=== PATIENT | female | born 1990 | race American Indian/Alaskan Native ===

== ENCOUNTER 2016-06-07 22:21 | Emergency (ER) | payer MEDICAID ==
[2016-06-07 23:31] LABS: Basophils % (Auto) 0.5 % (0.0-1.8); Eosinophils % (Auto) 1.7 % (0.0-4.3); Hematocrit 35.3 % (30.3-42.9); Hemoglobin 11.4 gm/dl (10.1-14.3); Mean Corpuscular HGB Conc 32 % (30-34); Mean Corpuscular Volume 78 fl (79-97); Platelet Count 272 K/mm3 (140-440); Red Blood Count 4.52 M/mm3 (3.65-5.03); Red Cell Distribution Width 16.2 % (13.2-15.2); White Blood Count 8.1 K/mm3 (4.5-11.0)
[2016-06-07 23:43] LABS: Mean Corpuscular Hemoglobin 25 pg (28-32)
[2016-06-07 23:48] LABS: Blood Urea Nitrogen 14 mg/dL (7-17); Calcium 8.5 mg/dL (8.4-10.2); Carbon Dioxide 25 mmol/L (22-30); Chloride 99.8 mmol/L (98-107); Glucose 85 mg/dL (65-100); Potassium 4.2 mmol/L (3.6-5.0); Sodium 136 mmol/L (137-145)
[2016-06-07 23:51] LABS: Anion Gap 15 mmol/L
[2016-06-08 04:17] LABS: Urine Drugs of Abuse Note Disclamer
[2016-06-08 04:23] LABS: Bilirubin,Urine NEG (Negative); Blood,Urine NEG (Negative); Ketones,Urine NEG (Negative); Leukocyte Esterase,Urine NEG (Negative); Nitrite,Urine NEG (Negative); Protein,Urine <15 mg/dL mg/dL (Negative); Urobilinogen,Urine < 2.0 mg/dL (<2.0); WBC,Urine < 1.0 /HPF (0.0-6.0)
--- NOTE | 2016-06-08 07:58 | Emergency Department Report ---
ED Psych HPI - General Chief Complaint: Psych Stated Complaint: ZAKI EVAL Time Seen by Provider: 06/08/16 07:56 Source: patient, EMS Mode of arrival: Ambulatory - History of Present Illness Initial Comments: The patient was transported by [facility] for request to renew her mental health prescriptions. The patient has a history of autism and schizophrenia. She is that of a poor historian. From what I can glean she recently got suspended from her day program. She resides with her parents. She is requesting that I restart her medicines which as far as I can now determine include Benadryl Haldol and Zyprexa. She is no longer taking Trileptal she states. She is not actively hallucinating. She is not violent. She is not suicidal. Complaint: other -: year(s) Associated Psychiatric Symptoms: none History of same: No Quality: intermittent Improves With: none Worsens With: none Associated Symptoms: denies other symptoms Treatments Prior to Arrival: none - Related Data Home Medications Medication Instructions Recorded Confirmed Last Taken Haloperidol [Haldol] 10 mg PO QDAY 05/10/16 05/10/16 Unknown OLANzapine TAB [Zyprexa Tab] 5 mg PO DAILY 05/10/16 05/10/16 Unknown Previous Rx's Medication Instructions Recorded Last Taken Type diphenhydrAMINE [Benadryl CAP] 50 mg PO QHS #60 capsule 08/23/15 Unknown Rx OXcarbazepine [Trileptal] 600 mg PO TID #30 tablet 12/07/15 Unknown Rx Haloperidol [Haldol] 5 mg PO BID #60 tablet 06/08/16 Unknown Rx OLANzapine [ZyPREXA] 5 mg PO QHS #30 tablet 06/08/16 Unknown Rx diphenhydrAMINE [Benadryl CAP] 50 mg PO BID #60 capsule 06/08/16 Unknown Rx Allergies Allergy/AdvReac Type Severity Reaction Status Date / Time No Known Allergies Allergy Verified 10/19/15 17:47 ED Review of Systems ROS: Stated complaint: MH EVAL Other details as noted in HPI Constitutional: denies: chills, fever Eyes: denies: eye pain, eye discharge, vision change ENT: denies: ear pain, throat pain Respiratory: denies: cough, shortness of breath, wheezing Cardiovascular: denies: chest pain, palpitations Endocrine: no symptoms reported Gastrointestinal: denies: abdominal pain, nausea, diarrhea Genitourinary: denies: urgency, dysuria, discharge Musculoskeletal: denies: back pain, joint swelling, arthralgia Skin: denies: rash, lesions Neurological: denies: headache, weakness, paresthesias Psychiatric: other. denies: anxiety, depression, auditory hallucinations, visual hallucinations, homicidal thoughts, suicidal thoughts Hematological/Lymphatic: denies: easy bleeding, easy bruising ED Past Medical Hx - Past Medical History Hx Psychiatric Treatment: Yes (schiophrenia, Mood disorder, Bipolar, Violent, SI ,) Additional medical history: schizophrenia,autism, obesity - Surgical History Past Surgical History?: No - Social History Smoking Status: Never Smoker Substance Use Type: None - Medications Home Medications: Home Medications Medication Instructions Recorded Confirmed Last Taken Type diphenhydrAMINE [Benadryl CAP] 50 mg PO QHS #60 capsule 08/23/15 05/10/16 Unknown Rx OXcarbazepine [Trileptal] 600 mg PO TID #30 tablet 12/07/15 05/10/16 Unknown Rx Haloperidol [Haldol] 10 mg PO QDAY 05/10/16 05/10/16 Unknown History OLANzapine TAB [Zyprexa Tab] 5 mg PO DAILY 05/10/16 05/10/16 Unknown History Haloperidol [Haldol] 5 mg PO BID #60 tablet 06/08/16 Unknown Rx OLANzapine [ZyPREXA] 5 mg PO QHS #30 tablet 06/08/16 Unknown Rx diphenhydrAMINE [Benadryl CAP] 50 mg PO BID #60 capsule 06/08/16 Unknown Rx ED Physical Exam - General Limitations: No Limitations General appearance: alert, in no apparent distress - Head Head exam: Present: atraumatic, normocephalic - Eye Eye exam: Present: normal appearance, PERRL, EOMI. Absent: scleral icterus - ENT ENT exam: Present: mucous membranes moist - Neck Neck exam: Present: normal inspection - Respiratory Respiratory exam: Present: normal lung sounds bilaterally. Absent: respiratory distress - Cardiovascular Cardiovascular Exam: Present: regular rate, normal rhythm. Absent: systolic murmur, diastolic murmur, rubs, gallop - GI/Abdominal GI/Abdominal exam: Present: soft, normal bowel sounds. Absent: distended, tenderness, guarding, rebound, rigid - Extremities Exam Extremities exam: Present: normal inspection - Back Exam Back exam: Present: normal inspection - Neurological Exam Neurological exam: Present: alert, oriented X3, CN II-XII intact. Absent: motor sensory deficit - Psychiatric Psychiatric exam: Present: normal affect, normal mood - Skin Skin exam: Present: warm, dry, intact, normal color. Absent: rash ED Course Vital Signs 06/07/16 06/08/16 22:30 06:29 Temperature 98.1 F 98.4 F Pulse Rate 94 H 88 Respiratory 18 18 Rate Blood Pressure 125/81 Blood Pressure 120/58 [Left] O2 Sat by Pulse 98 98 Oximetry - Reevaluation(s) Reevaluation #1: I spoke with the mental health counselor. We did not find 1013 criteria. The parents were notified. They stated that they would accept the patient back. They do not report any red flag type behavior nor suicidal ideation. 06/08/16 09:30 ED Medical Decision Making - Lab Data Result diagrams: 06/07/16 23:21 06/07/16 23:21 Laboratory Results - last 24 hr 06/07/16 06/07/16 06/07/16 23:21 23:21 23:21 WBC RBC Hgb Hct MCV MCH MCHC RDW Plt Count Lymph % (Auto) [place] % (Auto) Eos % (Auto) Baso % (Auto) Lymph # [place] # Eos # Baso # Seg Neutrophils % Seg Neutrophils # Sodium 136 L Potassium 4.2 Chloride 99.8 Carbon Dioxide 25 Anion Gap 15 BUN 14 Creatinine 1.0 Estimated GFR > 60 BUN/Creatinine Ratio 14.00 Glucose 85 Calcium 8.5 HCG, Qual Negative Urine Color Urine Turbidity Urine pH Ur Specific Richards Urine Protein Urine Glucose (UA) Urine Ketones Urine Blood Urine Nitrite Urine Bilirubin Urine Urobilinogen Ur Leukocyte Esterase Urine WBC (Auto) Urine RBC (Auto) U Epithel Cells (Auto) Urine Opiates Screen Urine Methadone Screen Ur Barbiturates Screen Ur Phencyclidine Scrn Ur Amphetamines Screen U Benzodiazepines Scrn Urine Cocaine Screen U Marijuana (THC) Screen Drugs of Abuse Note Plasma/Serum Alcohol < 0.01 06/07/16 06/07/16 06/07/16 23:21 Unknown Unknown WBC 8.1 RBC 4.52 Hgb 11.4 Hct 35.3 MCV 78 L MCH 25 L MCHC 32 RDW 16.2 H Plt Count 272 Lymph % (Auto) 34.5 [place] % (Auto) 7.0 Eos % (Auto) 1.7 Baso % (Auto) 0.5 Lymph # 2.8 [place] # 0.6 Eos # 0.1 Baso # 0.0 Seg Neutrophils % 56.3 Seg Neutrophils # 4.5 Sodium Potassium Chloride Carbon Dioxide Anion Gap BUN Creatinine Estimated GFR BUN/Creatinine Ratio Glucose Calcium HCG, Qual Urine Color Straw Urine Turbidity Clear Urine pH 5.0 Ur Specific Richards 1.010 Urine Protein <15 mg/dl Urine Glucose (UA) Neg Urine Ketones Neg Urine Blood Neg Urine Nitrite Neg Urine Bilirubin Neg Urine Urobilinogen < 2.0 Ur Leukocyte Esterase Neg Urine WBC (Auto) < 1.0 Urine RBC (Auto) 1.0 U Epithel Cells (Auto) 1.0 Urine Opiates Screen Presumptive negative Urine Methadone Screen Presumptive negative Ur Barbiturates Screen Presumptive negative Ur Phencyclidine Scrn Presumptive negative Ur Amphetamines Screen Presumptive negative U Benzodiazepines Scrn Presumptive negative Urine Cocaine Screen Presumptive negative U Marijuana (THC) Screen Presumptive negative Drugs of Abuse Note Disclamer Plasma/Serum Alcohol Critical care attestation.: If time is entered above; I have spent that time in minutes in the direct care of this critically ill patient, excluding procedure time. ED Disposition Clinical Impression: Autism Schizophrenia Qualifiers: Schizophrenia type: other Qualified Code(s): F20.89 - Other schizophrenia; F20.8 - Other schizophrenia Disposition: DISCHARGED TO HOME OR SELFCARE Is pt being admited?: No Does the pt Need Aspirin: No Condition: Stable Instructions: Schizophrenia (ED) Additional Instructions: Follow-up with usual psychiatrist and or [facility] services. Prescriptions: Haloperidol [Haldol] 5 mg PO BID #60 tablet OLANzapine [ZyPREXA] 5 mg PO QHS #30 tablet diphenhydrAMINE [Benadryl CAP] 50 mg PO BID #60 capsule Referrals: PRIMARY CARE, [Primary Care Provider] - [facility] Time of Disposition: 09:31
[2016-06-08] MEDS ORDERED: MILK OF MAGNESIA PO PRN (09:19)
[2016-06-08] MEDS ORDERED: ALUM-MAG HYDROX-SIMETH 200-200-20MG/5ML PO PRN (09:19)
[2016-06-08] MEDS ORDERED: TYLENOL PO PRN (09:19)
[2016-06-08] MEDS ORDERED: HALDOL PO SCH (10:00)
[2016-06-08] MEDS ORDERED: BENADRYL PO SCH (10:00)
[2016-06-08 10:34] VITALS: BP 127/75
== END 2016-06-08 10:25 | disposition home or self-care (01) ==
LOC: EEVIPCON 06-08 01:41 → ED 06-08 01:41
DX: F84.0 Autistic disorder (principal); F20.89 Other schizophrenia; F31.9 Bipolar disorder, unspecified; F20.9 Schizophrenia, unspecified
CPT/HCPCS: 36415; 80048; 80307; 81001; 84703; 85025; 99284; G0480; 80320

== ENCOUNTER 2016-07-28 23:58 | Emergency (ER) | payer MEDICAID ==
--- NOTE | 2016-07-29 00:35 | Emergency Department Report ---
HPI - General Time Seen by Provider: 07/29/16 00:32 - HPI HPI: This is a 26-year-old -L[place] female who presents to the emergency department by EMS from home with complaint of auditory hallucinations. The [place] she needs to go to [facility]. The patient has a history of autism and schizophrenia. She is on multiple psychiatric medications and says that she takes them compliantly. She denies any visual hallucinations, suicidal ideations or homicidal ideations. She currently lives with her mother and the patient says that there is no conflict between them and she feels safe at home. She denies any other past medical history. ED Past Medical Hx - Past Medical History Previous Medical History?: Yes Hx Psychiatric Treatment: Yes (schiophrenia, Mood disorder, Bipolar, Violent, SI ,) Additional medical history: schizophrenia,autism, obesity - Surgical History Past Surgical History?: No - Social History Smoking Status: Unknown if ever smoked Substance Use Type: None - Medications Home Medications: Home Medications Medication Instructions Recorded Confirmed Last Taken Type Haloperidol [Haloperidol] 10 mg PO BID 07/29/16 07/29/16 Unknown History Ibuprofen [Motrin 800 MG tab] 800 mg PO Q6HR PRN 07/29/16 07/29/16 Unknown History LORazepam [LORazepam] 1 mg PO BID 07/29/16 07/29/16 Unknown History cloNIDine-TTS PATCH [Catapres-Tts 1 patch TD Q7D 07/29/16 07/29/16 Unknown History Patch] diphenhydrAMINE [Benadryl CAP] 50 mg PO QHS PRN 07/29/16 07/29/16 Unknown History risperiDONE [RisperDAL] 1 mg PO BID 07/29/16 07/29/16 Unknown History ED Review of Systems ROS: Stated complaint: MH EVAL/HEARING VOICES Other details as noted in HPI Comment: Unobtainable due to pts medical conditions Constitutional: denies: chills, fever Eyes: denies: eye pain, eye discharge, vision change ENT: denies: ear pain, throat pain Respiratory: denies: cough, shortness of breath, wheezing Cardiovascular: denies: chest pain, palpitations Gastrointestinal: denies: abdominal pain, nausea, diarrhea Genitourinary: denies: urgency, dysuria, discharge Musculoskeletal: denies: back pain, joint swelling, arthralgia Skin: denies: rash, lesions Neurological: denies: headache, weakness, paresthesias Psychiatric: auditory hallucinations. denies: visual hallucinations, homicidal thoughts, suicidal thoughts Physical Exam - Physical Exam Vital Signs: Vital Signs 07/29/16 00:30 Temperature 99.0 F Pulse Rate 98 H Respiratory 18 Rate Blood Pressure 123/75 [Left] O2 Sat by Pulse 97 Oximetry Physical Exam: GENERAL: The patient is well-developed well-nourished. HEENT: Normocephalic. Atraumatic. Extraocular motions are intact. Patient has moist mucous membranes. Pupils equal reactive to light bilaterally. NECK: Supple. Trachea is midline. CHEST/LUNGS: Clear to auscultation. There is no respiratory distress noted. HEART/CARDIOVASCULAR: Regular. There is no tachycardia. There is no gallop rub or murmur. ABDOMEN: Abdomen is soft, nontender. Patient has normal bowel sounds. There is no abdominal distention. SKIN: There is no rash. There is no edema. There is no diaphoresis. NEURO: The patient is awake, alert. The patient is cooperative. The patient has no focal neurologic deficits. The patient has normal speech. MUSCULOSKELETAL: There is no tenderness or deformity. There is no limitation range of motion. There is no evidence of acute injury. ED Course Vital Signs 07/29/16 00:30 Temperature 99.0 F Pulse Rate 98 H Respiratory 18 Rate Blood Pressure 123/75 [Left] O2 Sat by Pulse 97 Oximetry ED Medical Decision Making - Lab Data Result diagrams: 07/29/16 00:36 07/29/16 00:36 - Medical Decision Making This is a 26-year-old Afro-Lithuanian female with history of schizophrenia and autism who presents to the ER via EMS saying that [place] at [place] were talking to her and telling her to come to [facility]. This is basically the answer that she gives to most questions about her current condition or reasons for coming to the emergency department. However the patient is able to answer questions about herself such as medications that she is on, arriving by ambulance, whom she lives with, etc. The patient denies any suicidal or homicidal ideations or any visual hallucinations. The patient's labs have been mostly unremarkable. There is no signs of infection, electrolyte abnormalities , renal insufficiency, glucose abnormalities. Patient is negative for blood alcohol. She is not . Since the patient does not appear to have any homicidal or suicidal thoughts, and since she appears to be at her baseline mental status with her autism and history of schizophrenia, I do not feel that the patient is a 1013 candidate at this time. She was seen by the crisis therapist, who has a separate note indicating the same conclusions. However due to the patient's autism, I do not believe that she is able to be discharged at this time on her own accord. We attempted to get in touch with her mother, whom she lives with, but were unsuccessful at this time. A voice mail was left for her. The patient will be kept in the emergency department until we are able to make sure of a safe discharge. Critical Care Time: No Critical care attestation.: If time is entered above; I have spent that time in minutes in the direct care of this critically ill patient, excluding procedure time. ED Disposition Clinical Impression: Autism Schizophrenia Qualifiers: Schizophrenia type: unspecified Qualified Code(s): F20.9 - Schizophrenia, unspecified Disposition: DISCHARGED TO HOME OR SELFCARE Is pt being admited?: No Condition: Stable Instructions: Schizophrenia (ED), Autism (ED) Additional Instructions: Please follow-up with your primary care physician and your psychiatrist in the next few days. Return to the emergency department with any worsening of your symptoms or any acute distress. Referrals: PRIMARY CAREMD [Primary Care Provider] - 3-5 Days Time of Disposition: 01:57
[2016-07-29 00:44] LABS: Basophils % (Auto) 0.6 % (0.0-1.8); Eosinophils % (Auto) 1.8 % (0.0-4.3); Hematocrit 35.2 % (30.3-42.9); Hemoglobin 11.4 gm/dl (10.1-14.3); Mean Corpuscular HGB Conc 32 % (30-34); Mean Corpuscular Volume 77 fl (79-97); Platelet Count 261 K/mm3 (140-440); Red Blood Count 4.56 M/mm3 (3.65-5.03); Red Cell Distribution Width 15.6 % (13.2-15.2); White Blood Count 8.6 K/mm3 (4.5-11.0)
[2016-07-29 00:52] LABS: Mean Corpuscular Hemoglobin 25 pg (28-32)
[2016-07-29 00:55] LABS: Bilirubin,Urine NEG (Negative); Blood,Urine NEG (Negative); Ketones,Urine NEG (Negative); Leukocyte Esterase,Urine NEG (Negative); Nitrite,Urine NEG (Negative); Protein,Urine <15 mg/dL mg/dL (Negative); Urobilinogen,Urine < 2.0 mg/dL (<2.0); WBC,Urine < 1.0 /HPF (0.0-6.0)
[2016-07-29 00:59] LABS: Anion Gap 14 mmol/L; BUN/Creatinine Ratio 13.75; Blood Urea Nitrogen 11 mg/dL (7-17); Calcium 8.8 mg/dL (8.4-10.2); Carbon Dioxide 27 mmol/L (22-30); Chloride 99.3 mmol/L (98-107); Glucose 91 mg/dL (65-100); Potassium 4.4 mmol/L (3.6-5.0); Sodium 136 mmol/L (137-145)
[2016-07-29 01:17] LABS: Urine Drugs of Abuse Note Disclamer
[2016-07-29 10:00] VITALS: BP 122/86
== END 2016-07-29 10:02 | disposition home or self-care (01) ==
LOC: ED 23:58
DX: F84.0 Autistic disorder (principal); F20.9 Schizophrenia, unspecified; F31.9 Bipolar disorder, unspecified; F39 Unspecified mood [affective] disorder
CPT/HCPCS: 36415; 80048; 80307; 81001; 84703; 85025; 99284; G0480; 80320

== ENCOUNTER 2016-08-03 14:30 | Emergency (ER) | payer MEDICAID ==
[2016-08-03 14:45] VITALS: BP 124/86
[2016-08-03 15:20] LABS: Basophils % (Auto) 0.4 % (0.0-1.8); Eosinophils % (Auto) 1.4 % (0.0-4.3); Hematocrit 34.5 % (30.3-42.9); Hemoglobin 11.2 gm/dl (10.1-14.3); Mean Corpuscular HGB Conc 33 % (30-34); Mean Corpuscular Volume 77 fl (79-97); Platelet Count 235 K/mm3 (140-440); Red Blood Count 4.49 M/mm3 (3.65-5.03); Red Cell Distribution Width 15.3 % (13.2-15.2); White Blood Count 5.1 K/mm3 (4.5-11.0)
[2016-08-03 15:28] LABS: Anion Gap 16 mmol/L; BUN/Creatinine Ratio 14.28; Blood Urea Nitrogen 10 mg/dL (7-17); Calcium 8.9 mg/dL (8.4-10.2); Carbon Dioxide 24 mmol/L (22-30); Chloride 102.5 mmol/L (98-107); Glucose 89 mg/dL (65-100); Potassium 4.1 mmol/L (3.6-5.0); Sodium 138 mmol/L (137-145)
[2016-08-03 15:33] LABS: Urine Drugs of Abuse Note Disclamer
[2016-08-03 15:38] LABS: Mean Corpuscular Hemoglobin 25 pg (28-32)
[2016-08-03 16:09] LABS: Bilirubin,Urine NEG (Negative); Blood,Urine NEG (Negative); Ketones,Urine NEG (Negative); Leukocyte Esterase,Urine NEG (Negative); Nitrite,Urine NEG (Negative); Protein,Urine <15 mg/dL mg/dL (Negative); RBC,Urine < 1.0 /HPF (0.0-6.0); Urobilinogen,Urine < 2.0 mg/dL (<2.0)
--- NOTE | 2016-08-03 16:29 | Emergency Department Report ---
HPI - General Chief Complaint: Psych Time Seen by Provider: 08/03/16 16:23 - HPI HPI: Chief complaint: Hearing voices HPI: Patient is a 26-year-old female with multiple visits to this emergency department as history of schizophrenia, mood disorder, bipolar disorder, autism he states she's here for having a "outburst. "Patient denies hitting anyone or being suicidal or homicidal. Patient states she was hearing voices. Patient states she has been taking her medications. Patient has poor insight. Mode of arrival: [private car] Source: [Patient] and nursing notes Began: This morning Duration: Currently has resolved Context: Patient lives with her family and periodically has altercations with her mother and comes to the hospital. Quality: Patient is pain-free Severity: Improved with: Nothing Worsened with: Nothing Associated signs and symptoms: No pain, shortness of breath, nausea vomiting or diarrhea. ED Past Medical Hx - Past Medical History Previous Medical History?: Yes Hx Psychiatric Treatment: Yes (schiophrenia, Mood disorder, Bipolar, Violent, SI ,) Additional medical history: schizophrenia,autism, obesity - Surgical History Past Surgical History?: No - Social History Smoking Status: Never Smoker Substance Use Type: Prescribed - Medications Home Medications: Home Medications Medication Instructions Recorded Confirmed Last Taken Type Haloperidol [Haloperidol] 10 mg PO BID 07/29/16 07/29/16 Unknown History Ibuprofen [Motrin 800 MG tab] 800 mg PO Q6HR PRN 07/29/16 07/29/16 Unknown History LORazepam [LORazepam] 1 mg PO BID 07/29/16 07/29/16 Unknown History cloNIDine-TTS PATCH [Catapres-Tts 1 patch TD Q7D 07/29/16 07/29/16 Unknown History Patch] diphenhydrAMINE [Benadryl CAP] 50 mg PO QHS PRN 07/29/16 07/29/16 Unknown History risperiDONE [RisperDAL] 1 mg PO BID 07/29/16 07/29/16 Unknown History ED Review of Systems ROS: Stated complaint: HEARING VOICES Other details as noted in HPI ROS Constitutional: No fever ENT: No uri symptoms Cardiovascular: No chest pain Respiratory: No sob or cough GI: No nausea vomiting or diarrhea : No dysuria frequency or urgency, Skin: No rash Neuro: No focal weakness or numbness Psych: See HPI Jordan/lymph: No edema Physical Exam - Physical Exam Vital Signs: Vital Signs 08/03/16 14:42 Temperature 97.8 F Pulse Rate 79 Respiratory 18 Rate Blood Pressure 124/86 O2 Sat by Pulse 99 Oximetry Physical Exam: GENERAL: The patient is an obese -Honduran female standing in the room eating. HEENT: Normocephalic. Atraumatic. Extraocular motions are intact. Disconjugate gaze chronic. Patient has moist mucous membranes. NECK: Supple. No meningitic signs are noted. There is no adenopathy noted. CHEST/LUNGS: Clear to auscultation. There is no respiratory distress noted. HEART/CARDIOVASCULAR: Regular. There is no tachycardia. There is no gallop rub or murmur. ABDOMEN: Abdomen is soft, nontender. Patient has normal bowel sounds. There is no abdominal distention. SKIN: There is no rash. There is no edema. There is no diaphoresis. NEURO: The patient is awake, alert, and oriented to name and situation. The patient is cooperative. The patient has no focal neurologic deficits. The patient has normal speech. MUSCULOSKELETAL: There is no tenderness or deformity. There is no limitation range of motion. There is no evidence of acute injury. ED Course Vital Signs 08/03/16 14:42 Temperature 97.8 F Pulse Rate 79 Respiratory 18 Rate Blood Pressure 124/86 O2 Sat by Pulse 99 Oximetry - Reevaluation(s) Reevaluation #1: 08/03/16 16:30 Patient seen by mental health crisis and transportation has been arranged for her to return to her home. ED Medical Decision Making - Lab Data Result diagrams: 08/03/16 14:57 08/03/16 14:57 Laboratory Tests 08/03/16 08/03/16 14:57 14:57 HCG, Qual Negative Plasma/Serum Alcohol < 0.01 Urinalysis and urine drug screen are negative Critical care attestation.: If time is entered above; I have spent that time in minutes in the direct care of this critically ill patient, excluding procedure time. ED Disposition Clinical Impression: Bipolar disorder, Schizophrenia, Autism, Mood disorder Disposition: DISCHARGED TO HOME OR SELFCARE Is pt being admited?: No Does the pt Need Aspirin: No Condition: Stable Instructions: Schizophrenia (ED) Referrals: PRIMARY CARE, [Primary Care Provider] - 3-5 Days Time of Disposition: 16:31
== END 2016-08-04 00:09 | disposition home or self-care (01) ==
LOC: ED 14:30 → EEVIPCON 14:30 → ED 08-04 00:09
DX: F31.9 Bipolar disorder, unspecified (principal); F20.9 Schizophrenia, unspecified; F84.0 Autistic disorder; F39 Unspecified mood [affective] disorder; E66.9 Obesity, unspecified
CPT/HCPCS: 36415; 80048; 80307; 81001; 84703; 85025; 99284; G0480; 80320

== ENCOUNTER 2016-09-26 18:06 | Emergency (ER) | payer MEDICAID ==
[2016-09-26 20:21] LABS: Basophils % (Auto) 0.5 % (0.0-1.8); Eosinophils % (Auto) 1.8 % (0.0-4.3); Hematocrit 34.7 % (30.3-42.9); Hemoglobin 11.3 gm/dl (10.1-14.3); Mean Corpuscular HGB Conc 33 % (30-34); Mean Corpuscular Volume 78 fl (79-97); Platelet Count 256 K/mm3 (140-440); Red Blood Count 4.43 M/mm3 (3.65-5.03); Red Cell Distribution Width 16.9 % (13.2-15.2); White Blood Count 7.8 K/mm3 (4.5-11.0)
[2016-09-26 20:26] LABS: Mean Corpuscular Hemoglobin 25 pg (28-32)
[2016-09-26 20:33] LABS: Anion Gap 15 mmol/L; Blood Urea Nitrogen 11 mg/dL (7-17); Calcium 8.8 mg/dL (8.4-10.2); Carbon Dioxide 27 mmol/L (22-30); Chloride 100.3 mmol/L (98-107); Glucose 88 mg/dL (65-100); Potassium 4.2 mmol/L (3.6-5.0); Sodium 138 mmol/L (137-145)
[2016-09-26 22:04] LABS: Urine Drugs of Abuse Note Disclamer
[2016-09-26 22:20] LABS: Bilirubin,Urine NEG (Negative); Blood,Urine SM (Negative); Ketones,Urine NEG (Negative); Leukocyte Esterase,Urine NEG (Negative); Nitrite,Urine NEG (Negative); Protein,Urine <15 mg/dL mg/dL (Negative); Urobilinogen,Urine < 2.0 mg/dL (<2.0)
--- NOTE | 2016-09-27 04:46 | Emergency Department Report ---
ED General Adult HPI - General Chief complaint: Psych Stated complaint: MH EVAL Time Seen by Provider: 09/27/16 03:26 Source: patient, RN notes reviewed, old records reviewed Mode of arrival: Ambulatory Limitations: No Limitations - History of Present Illness Initial comments: This is a 26-year-old female. I have reevaluated her multiple times in the past. She has a past medical history of bipolar, schizophrenia, autism spectrum disorder. The patient is sent to the ER for evaluation of aggressive behavior. Apparently , the patient got angry, and was hitting herself. She is not homicidal. She is not suicidal. She denies intentional overdose, she denies access to guns and firearms, she denies headache, neck pain, chest pain, abdominal pain or shortness of breath. She asks to eat. -: This afternoon Severity scale (0 -10): 0 Consistency: now resolved Improves with: none Worsens with: none Associated Symptoms: denies other symptoms - Related Data Home Medications Medication Instructions Recorded Confirmed Last Taken Haloperidol [Haloperidol] 10 mg PO BID 07/29/16 09/27/16 Unknown Ibuprofen [Motrin 800 MG tab] 800 mg PO Q6HR PRN 07/29/16 09/27/16 Unknown LORazepam [LORazepam] 1 mg PO BID 07/29/16 09/27/16 Unknown cloNIDine-TTS PATCH [Catapres-Tts 1 patch TD Q7D 07/29/16 09/27/16 Unknown Patch] diphenhydrAMINE [Benadryl CAP] 50 mg PO QHS PRN 07/29/16 09/27/16 Unknown risperiDONE [RisperDAL] 1 mg PO BID 07/29/16 09/27/16 Unknown Allergies Allergy/AdvReac Type Severity Reaction Status Date / Time No Known Allergies Allergy Verified 10/19/15 17:47 ED Review of Systems ROS: Stated complaint: MH EVAL Other details as noted in HPI Constitutional: denies: fever Eyes: denies: vision change ENT: denies: epistaxis Respiratory: denies: cough Cardiovascular: denies: chest pain Gastrointestinal: denies: abdominal pain Genitourinary: denies: urgency Musculoskeletal: denies: back pain Skin: denies: lesions Neurological: denies: headache, weakness Psychiatric: denies: homicidal thoughts, suicidal thoughts ED Past Medical Hx - Past Medical History Previous Medical History?: Yes Hx Psychiatric Treatment: Yes (schiophrenia, Mood disorder, Bipolar, Violent, SI ,) Additional medical history: schizophrenia,autism, obesity - Surgical History Past Surgical History?: No - Social History Smoking Status: Never Smoker Substance Use Type: None - Medications Home Medications: Home Medications Medication Instructions Recorded Confirmed Last Taken Type Haloperidol [Haloperidol] 10 mg PO BID 07/29/16 09/27/16 Unknown History Ibuprofen [Motrin 800 MG tab] 800 mg PO Q6HR PRN 07/29/16 09/27/16 Unknown History LORazepam [LORazepam] 1 mg PO BID 07/29/16 09/27/16 Unknown History cloNIDine-TTS PATCH [Catapres-Tts 1 patch TD Q7D 07/29/16 09/27/16 Unknown History Patch] diphenhydrAMINE [Benadryl CAP] 50 mg PO QHS PRN 07/29/16 09/27/16 Unknown History risperiDONE [RisperDAL] 1 mg PO BID 07/29/16 09/27/16 Unknown History ED Physical Exam - General Limitations: No Limitations General appearance: alert, in no apparent distress - Head Head exam: Present: atraumatic, normocephalic - Eye Eye exam: Present: normal appearance, EOMI. Absent: nystagmus - ENT ENT exam: Present: normal exam, normal orophraynx, mucous membranes moist, normal external ear exam - Neck Neck exam: Present: normal inspection, full ROM. Absent: tenderness, meningismus - Respiratory Respiratory exam: Present: normal lung sounds bilaterally. Absent: respiratory distress, wheezes, rales, rhonchi, stridor, chest wall tenderness - Cardiovascular Cardiovascular Exam: Present: regular rate, normal rhythm, normal heart sounds. Absent: bradycardia, tachycardia, irregular rhythm, systolic murmur, diastolic murmur, rubs, gallop - GI/Abdominal GI/Abdominal exam: Present: soft, normal bowel sounds. Absent: distended, tenderness, guarding, rebound, rigid, pulsatile mass - Extremities Exam Extremities exam: Present: normal inspection, full ROM, normal capillary refill. Absent: tenderness, pedal edema, joint swelling, calf tenderness - Back Exam Back exam: Present: normal inspection, full ROM. Absent: tenderness, CVA tenderness (R), CVA tenderness (L), muscle spasm, paraspinal tenderness, vertebral tenderness - Neurological Exam Neurological exam: Present: alert, oriented X3, normal gait, other (Extraocular movements intact. Tongue midline. No facial droop. Facial sensation intact to light touch in the V1, V2, V3 distribution bilaterally. 5 and 5 strength in 4 extremities.. Sensation is intact to light touch in 4 extremities.Extraocular movements intact. Tongue midline. No facial droop. Facial sensation intact to light touch in the V1, V2, V3 distribution bilaterally. 5 and 5 strength in 4 extremities.. Sensation is intact to light touch in 4 extremities.). Absent: motor sensory deficit - Psychiatric Psychiatric exam: Present: normal affect, normal mood. Absent: homicidal ideation, suicidal ideation - Skin Skin exam: Present: warm, dry, intact, normal color. Absent: rash ED Course Vital Signs 09/26/16 09/27/16 19:56 02:30 Temperature 98.6 F Pulse Rate 97 H 68 Respiratory 18 16 Rate Blood Pressure 135/82 109/53 [Right] O2 Sat by Pulse 100 96 Oximetry - Reevaluation(s) Reevaluation #1: 09/27/16 04:44 Differential diagnosis: Mood disorder, general medical evaluation, behavioral disturbance Assessment and plan: 26-year-old female who presents to the ER for evaluation of aggressive behavior. She is not homicidal or suicidal. She has a GCS of 15. NIH score is 0. Physical examination is unremarkable. Laboratory studies are unremarkable. Does not meet criteria for 1013/involuntary hold. The patient will be discharged at this time. She is seen and evaluated in conjunction with the production staff worker, Leland Larry Solares, who agrees with this plan of care. ED Medical Decision Making - Lab Data Result diagrams: 09/26/16 19:59 09/26/16 19:59 Vital Signs 09/26/16 09/27/16 19:56 02:30 Temperature 98.6 F Pulse Rate 97 H 68 Respiratory 18 16 Rate Blood Pressure 135/82 109/53 [Right] O2 Sat by Pulse 100 96 Oximetry Lab Results 09/26/16 09/26/16 09/26/16 Range/Units 19:59 19:59 19:59 WBC (4.5-11.0) K/mm3 RBC (3.65-5.03) M/mm3 Hgb (10.1-14.3) gm/dl Hct (30.3-42.9) % MCV (79-97) fl MCH (28-32) pg MCHC (30-34) % RDW (13.2-15.2) % Plt Count (140-440) K/mm3 Lymph % (Auto) (13.4-35.0) % [place] % (Auto) (0.0-7.3) % Eos % (Auto) (0.0-4.3) % Baso % (Auto) (0.0-1.8) % Lymph # (1.2-5.4) K/mm3 [place] # (0.0-0.8) K/mm3 Eos # (0.0-0.4) K/mm3 Baso # (0.0-0.1) K/mm3 Seg Neutrophils % (40.0-70.0) % Seg Neutrophils # (1.8-7.7) K/mm3 Sodium 138 (137-145) mmol/L Potassium 4.2 (3.6-5.0) mmol/L Chloride 100.3 (98-107) mmol/L Carbon Dioxide 27 (22-30) mmol/L Anion Gap 15 mmol/L BUN 11 (7-17) mg/dL Creatinine 1.0 (0.7-1.2) mg/dL Estimated GFR > 60 ml/min BUN/Creatinine Ratio 11.00 % Glucose 88 (65-100) mg/dL Calcium 8.8 (8.4-10.2) mg/dL HCG, Qual Negative (Negative) Urine Color (Yellow) Urine Turbidity (Clear) Urine pH (5.0-7.0) Ur Specific [place] (1.003-1.030) Urine Protein (Negative) mg/dL Urine Glucose (UA) (Negative) mg/dL Urine Ketones (Negative) mg/dL Urine Blood (Negative) Urine Nitrite (Negative) Urine Bilirubin (Negative) Urine Urobilinogen (<2.0) mg/dL Ur Leukocyte Esterase (Negative) Urine WBC (Auto) (0.0-6.0) /HPF Urine RBC (Auto) (0.0-6.0) /HPF U Epithel Cells (Auto) (0-13.0) /HPF Urine Opiates Screen Urine Methadone Screen Ur Barbiturates Screen Ur Phencyclidine Scrn Ur Amphetamines Screen U Benzodiazepines Scrn Urine Cocaine Screen U Marijuana (THC) Screen Drugs of Abuse Note Plasma/Serum Alcohol < 0.01 (0-0.07) gm% 09/26/16 09/26/16 09/26/16 Range/Units 19:59 21:38 21:38 WBC 7.8 (4.5-11.0) K/mm3 RBC 4.43 (3.65-5.03) M/mm3 Hgb 11.3 (10.1-14.3) gm/dl Hct 34.7 (30.3-42.9) % MCV 78 L (79-97) fl MCH 25 L (28-32) pg MCHC 33 (30-34) % RDW 16.9 H (13.2-15.2) % Plt Count 256 (140-440) K/mm3 Lymph % (Auto) 29.5 (13.4-35.0) % [place] % (Auto) 7.7 H (0.0-7.3) % Eos % (Auto) 1.8 (0.0-4.3) % Baso % (Auto) 0.5 (0.0-1.8) % Lymph # 2.3 (1.2-5.4) K/mm3 [place] # 0.6 (0.0-0.8) K/mm3 Eos # 0.1 (0.0-0.4) K/mm3 Baso # 0.0 (0.0-0.1) K/mm3 Seg Neutrophils % 60.5 (40.0-70.0) % Seg Neutrophils # 4.7 (1.8-7.7) K/mm3 Sodium (137-145) mmol/L Potassium (3.6-5.0) mmol/L Chloride (98-107) mmol/L Carbon Dioxide (22-30) mmol/L Anion Gap mmol/L BUN (7-17) mg/dL Creatinine (0.7-1.2) mg/dL Estimated GFR ml/min BUN/Creatinine Ratio % Glucose (65-100) mg/dL Calcium (8.4-10.2) mg/dL HCG, Qual (Negative) Urine Color Straw (Yellow) Urine Turbidity Clear (Clear) Urine pH 7.0 (5.0-7.0) Ur Specific [place] 1.011 (1.003-1.030) Urine Protein <15 mg/dl (Negative) mg/dL Urine Glucose (UA) Neg (Negative) mg/dL Urine Ketones Neg (Negative) mg/dL Urine Blood Sm (Negative) Urine Nitrite Neg (Negative) Urine Bilirubin Neg (Negative) Urine Urobilinogen < 2.0 (<2.0) mg/dL Ur Leukocyte Esterase Neg (Negative) Urine WBC (Auto) 1.0 (0.0-6.0) /HPF Urine RBC (Auto) 1.0 (0.0-6.0) /HPF U Epithel Cells (Auto) 3.0 (0-13.0) /HPF Urine Opiates Screen Presumptive negative Urine Methadone Screen Presumptive negative Ur Barbiturates Screen Presumptive negative Ur Phencyclidine Scrn Presumptive negative Ur Amphetamines Screen Presumptive negative U Benzodiazepines Scrn Presumptive negative Urine Cocaine Screen Presumptive negative U Marijuana (THC) Screen Presumptive negative Drugs of Abuse Note Disclamer Plasma/Serum Alcohol (0-0.07) gm% Critical care attestation.: If time is entered above; I have spent that time in minutes in the direct care of this critically ill patient, excluding procedure time. ED Disposition Clinical Impression: Mood disorder Disposition: DISCHARGED TO HOME OR SELFCARE Is pt being admited?: No Does the pt Need Aspirin: No Condition: Stable Instructions: Mood Disorders (ED) Additional Instructions: Continue current outpatient medications. Follow-up with her psychiatrist or primary care doctor within the next week. Return to the ER right away with homicidality, suicidality, fevers or chills, chest pain or shortness of breath, nausea or vomiting. Referrals: PRIMARY CARE, [Primary Care Provider] - 3-5 Days ZA GARCIA MD [Staff Physician] - 3-5 Days [facility] [Provider Group] - 3-5 Days
[2016-09-27 05:01] VITALS: BP 118/62
== END 2016-09-27 05:01 | disposition home or self-care (01) ==
LOC: ED 18:06
DX: F39 Unspecified mood [affective] disorder (principal); F20.9 Schizophrenia, unspecified; F31.9 Bipolar disorder, unspecified; F84.0 Autistic disorder; E66.9 Obesity, unspecified
CPT/HCPCS: 36415; 80048; 80307; 81001; 84703; 85025; 99283; G0480; 80320

== ENCOUNTER 2016-12-19 20:26 | Emergency (ER) | payer MEDICAID ==
[2016-12-19 21:25] LABS: Urine Drugs of Abuse Note Disclamer
[2016-12-19 21:30] LABS: Hematocrit 33.5 % (30.3-42.9); Hemoglobin 11.1 gm/dl (10.1-14.3); Mean Corpuscular Volume 78 fl (79-97); White Blood Count 7.4 K/mm3 (4.5-11.0)
[2016-12-19 21:31] LABS: Mean Corpuscular HGB Conc 33 % (30-34); Mean Corpuscular Hemoglobin 26 pg (28-32); Platelet Count 227 K/mm3 (140-440); Red Cell Distribution Width 15.9 % (13.2-15.2)
[2016-12-19 21:32] LABS: Basophils % (Auto) 0.6 % (0.0-1.8); Eosinophils % (Auto) 2.8 % (0.0-4.3)
[2016-12-19 21:34] LABS: Anion Gap 16 mmol/L; Blood Urea Nitrogen 9 mg/dL (7-17); Calcium 8.2 mg/dL (8.4-10.2); Carbon Dioxide 25 mmol/L (22-30); Chloride 99.4 mmol/L (98-107); Glucose 80 mg/dL (65-100); Potassium 3.7 mmol/L (3.6-5.0); Sodium 137 mmol/L (137-145)
[2016-12-19 21:35] LABS: Bacteria,Urine 2+ /HPF (Negative); Bilirubin,Urine NEG (Negative); Blood,Urine NEG (Negative); Ketones,Urine NEG (Negative); Leukocyte Esterase,Urine NEG (Negative); Nitrite,Urine NEG (Negative); Protein,Urine <15 mg/dL mg/dL (Negative); RBC,Urine < 1.0 /HPF (0.0-6.0); Urobilinogen,Urine < 2.0 mg/dL (<2.0); WBC,Urine < 1.0 /HPF (0.0-6.0)
[2016-12-20 03:13] VITALS: BP 110/68
== END 2016-12-20 05:30 ==
LOC: ED 20:26
DX: R44.0 Auditory hallucinations (principal); Z53.21 Procedure and treatment not carried out due to patient leaving prior to being seen by health care provider
CPT/HCPCS: 36415; 80048; 80307; 81001; 84703; 85025; G0480; 80320

== ENCOUNTER 2017-01-26 14:53 | Emergency (ER) | payer MEDICAID ==
[2017-01-26 16:07] LABS: Basophils % (Auto) 0.3 % (0.0-1.8); Eosinophils % (Auto) 2.5 % (0.0-4.3); Hematocrit 35.7 % (30.3-42.9); Hemoglobin 11.7 gm/dl (10.1-14.3); Mean Corpuscular HGB Conc 33 % (30-34); Mean Corpuscular Volume 79 fl (79-97); Platelet Count 239 K/mm3 (140-440); Red Blood Count 4.55 M/mm3 (3.65-5.03); Red Cell Distribution Width 15.5 % (13.2-15.2)
[2017-01-26 16:10] LABS: Urine Drugs of Abuse Note Disclamer
[2017-01-26 16:13] LABS: Mean Corpuscular Hemoglobin 26 pg (28-32)
[2017-01-26 16:21] LABS: Anion Gap 16 mmol/L; Blood Urea Nitrogen 6 mg/dL (7-17); Calcium 8.9 mg/dL (8.4-10.2); Carbon Dioxide 26 mmol/L (22-30); Chloride 103.2 mmol/L (98-107); Glucose 98 mg/dL (65-100); Potassium 4.2 mmol/L (3.6-5.0); Sodium 141 mmol/L (137-145)
[2017-01-26 16:33] LABS: Bacteria,Urine 1+ /HPF (Negative); Bilirubin,Urine NEG (Negative); Blood,Urine NEG (Negative); Ketones,Urine NEG (Negative); Leukocyte Esterase,Urine NEG (Negative); Mucus,Urine FEW /HPF; Nitrite,Urine NEG (Negative); Protein,Urine <15 mg/dL mg/dL (Negative); Urobilinogen,Urine < 2.0 mg/dL (<2.0)
--- NOTE | 2017-01-26 18:13 | Emergency Department Report ---
ED Psych HPI - General Chief Complaint: Psych Stated Complaint: hearing voices Time Seen by Provider: 01/26/17 17:52 Source: patient Mode of arrival: Ambulatory - History of Present Illness Initial Comments: A 6-year-old bipolar schizophrenic here with complaint of auditory hallucinations. She states that the auditory hallucinations are telling her to punch the wall which she did. She does not want currently hurt herself any further. She states that she's never tried to hurt herself before. Denies any homicidal ideation. She denies any other medical problems. She does state that she is on some medications for her schizophrenia. No fevers chills. No other medical problems. Associated Psychiatric Symptoms: auditory hallucinations History of same: Yes Quality: intermittent, changing over time Improves With: none Worsens With: none Associated Symptoms: denies other symptoms Treatments Prior to Arrival: none If Self Harm: admits thoughts of, self-inflicted trauma - Related Data Home Medications Medication Instructions Recorded Confirmed Last Taken Haloperidol [Haloperidol] 10 mg PO BID 07/29/16 09/27/16 Unknown Ibuprofen [Motrin 800 MG tab] 800 mg PO Q6HR PRN 07/29/16 09/27/16 Unknown LORazepam [LORazepam] 1 mg PO BID 07/29/16 09/27/16 Unknown cloNIDine-TTS PATCH [Catapres-Tts 1 patch TD Q7D 07/29/16 09/27/16 Unknown Patch] diphenhydrAMINE [Benadryl CAP] 50 mg PO QHS PRN 07/29/16 09/27/16 Unknown risperiDONE [RisperDAL] 1 mg PO BID 07/29/16 09/27/16 Unknown Allergies Allergy/AdvReac Type Severity Reaction Status Date / Time No Known Allergies Allergy Verified 01/26/17 15:11 ED Review of Systems ROS: Stated complaint: hearing voices Other details as noted in HPI Comment: All other systems reviewed and negative Constitutional: denies: chills, fever Eyes: denies: eye pain, eye discharge, vision change ENT: denies: ear pain, throat pain Respiratory: denies: cough, shortness of breath, wheezing Cardiovascular: denies: chest pain, palpitations Endocrine: no symptoms reported Gastrointestinal: denies: abdominal pain, nausea, diarrhea Genitourinary: denies: urgency, dysuria, discharge Musculoskeletal: denies: back pain, joint swelling, arthralgia Skin: denies: rash, lesions Neurological: denies: headache, weakness, paresthesias Psychiatric: denies: anxiety, depression Hematological/Lymphatic: denies: easy bleeding, easy bruising ED Past Medical Hx - Past Medical History Hx Psychiatric Treatment: Yes (schiophrenia, Mood disorder, Bipolar, Violent, SI ,) Additional medical history: schizophrenia,autism, obesity - Surgical History Past Surgical History?: No - Family History Family history: no significant - Social History Smoking Status: Never Smoker Substance Use Type: None - Medications Home Medications: Home Medications Medication Instructions Recorded Confirmed Last Taken Type Haloperidol [Haloperidol] 10 mg PO BID 07/29/16 09/27/16 Unknown History Ibuprofen [Motrin 800 MG tab] 800 mg PO Q6HR PRN 07/29/16 09/27/16 Unknown History LORazepam [LORazepam] 1 mg PO BID 07/29/16 09/27/16 Unknown History cloNIDine-TTS PATCH [Catapres-Tts 1 patch TD Q7D 07/29/16 09/27/16 Unknown History Patch] diphenhydrAMINE [Benadryl CAP] 50 mg PO QHS PRN 07/29/16 09/27/16 Unknown History risperiDONE [RisperDAL] 1 mg PO BID 07/29/16 09/27/16 Unknown History ED Physical Exam - General Limitations: No Limitations General appearance: alert, in no apparent distress, obese - Head Head exam: Present: atraumatic, normocephalic - Eye Eye exam: Present: normal appearance, scleral icterus - ENT ENT exam: Present: mucous membranes moist - Neck Neck exam: Present: normal inspection - Respiratory Respiratory exam: Present: normal lung sounds bilaterally. Absent: respiratory distress, wheezes - Cardiovascular Cardiovascular Exam: Present: regular rate, normal rhythm. Absent: systolic murmur, diastolic murmur, rubs, gallop - GI/Abdominal GI/Abdominal exam: Present: soft, normal bowel sounds - Extremities Exam Extremities exam: Present: normal inspection - Back Exam Back exam: Present: normal inspection - Neurological Exam Neurological exam: Present: alert, oriented X3 - Psychiatric Psychiatric exam: Present: normal affect, normal mood - Skin Skin exam: Present: warm, dry, intact, normal color. Absent: rash ED Course Vital Signs 01/26/17 15:11 Temperature 98 F Pulse Rate 106 H Respiratory 18 Rate Blood Pressure 127/87 O2 Sat by Pulse 100 Oximetry ED Medical Decision Making - Lab Data Result diagrams: 01/26/17 15:38 01/26/17 15:38 Laboratory Results - last 24 hr 01/26/17 01/26/17 01/26/17 15:38 15:38 15:38 WBC RBC Hgb Hct MCV MCH MCHC RDW Plt Count Lymph % (Auto) [place] % (Auto) Eos % (Auto) Baso % (Auto) Lymph # [place] # Eos # Baso # Seg Neutrophils % Seg Neutrophils # Sodium 141 Potassium 4.2 Chloride 103.2 Carbon Dioxide 26 Anion Gap 16 BUN 6 L Creatinine 0.8 Estimated GFR > 60 BUN/Creatinine Ratio 7.50 Glucose 98 Calcium 8.9 HCG, Qual Negative Urine Color Urine Turbidity Urine pH Ur Specific [place] Urine Protein Urine Glucose (UA) Urine Ketones Urine Blood Urine Nitrite Urine Bilirubin Urine Urobilinogen Ur Leukocyte Esterase Urine WBC (Auto) Urine RBC (Auto) U Epithel Cells (Auto) Urine Bacteria (Auto) Urine Mucus Urine Opiates Screen Urine Methadone Screen Ur Barbiturates Screen Ur Phencyclidine Scrn Ur Amphetamines Screen U Benzodiazepines Scrn Urine Cocaine Screen U Marijuana (THC) Screen Drugs of Abuse Note Plasma/Serum Alcohol < 0.01 01/26/17 01/26/17 01/26/17 15:38 15:58 15:58 WBC 6.0 RBC 4.55 Hgb 11.7 Hct 35.7 MCV 79 MCH 26 L MCHC 33 RDW 15.5 H Plt Count 239 Lymph % (Auto) 34.4 [place] % (Auto) 7.5 H Eos % (Auto) 2.5 Baso % (Auto) 0.3 Lymph # 2.1 [place] # 0.4 Eos # 0.1 Baso # 0.0 Seg Neutrophils % 55.3 Seg Neutrophils # 3.3 Sodium Potassium Chloride Carbon Dioxide Anion Gap BUN Creatinine Estimated GFR BUN/Creatinine Ratio Glucose Calcium HCG, Qual Urine Color Yellow Urine Turbidity Slightly-cloudy Urine pH 6.0 Ur Specific [place] 1.010 Urine Protein <15 mg/dl Urine Glucose (UA) Neg Urine Ketones Neg Urine Blood Neg Urine Nitrite Neg Urine Bilirubin Neg Urine Urobilinogen < 2.0 Ur Leukocyte Esterase Neg Urine WBC (Auto) 1.0 Urine RBC (Auto) 1.0 U Epithel Cells (Auto) 6.0 Urine Bacteria (Auto) 1+ Urine Mucus Few Urine Opiates Screen Presumptive negative Urine Methadone Screen Presumptive negative Ur Barbiturates Screen Presumptive negative Ur Phencyclidine Scrn Presumptive negative Ur Amphetamines Screen Presumptive negative U Benzodiazepines Scrn Presumptive negative Urine Cocaine Screen Presumptive negative U Marijuana (THC) Screen Presumptive negative Drugs of Abuse Note Disclamer Plasma/Serum Alcohol - Medical Decision Making Plan hold patient for psychiatric evaluation. Patient is medically clear for psychiatric evaluation. Critical care attestation.: If time is entered above; I have spent that time in minutes in the direct care of this critically ill patient, excluding procedure time. ED Disposition Clinical Impression: Bipolar disorder, Schizophrenia, Auditory hallucinations Disposition: [id number]/TX-65 PSY HOSP/PSY UNIT Is pt being admited?: No Condition: Stable Referrals: PRIMARY CARE, [Primary Care Provider] - 3-5 Days
--- NOTE | 2017-01-28 14:55 | Consultation ---
History of Present Illness - Reason for Consult Consult date: 01/28/17 Reason for consult: Mental Health Evaluation Requesting physician: ARIEL CASTILLO - Chief Complaint Chief complaint: "I heard voices" - History of Present Psychiatric Illness A 26-year-old bipolar/schizophrenic here with complaint of auditory hallucinations. Today patient is calm and cooperative during the assessment. She stated that she was hearing voices telling her to punch the [place]. She denies wanting to hurt herself or anyone else. Per her mother Beatriz Nayak, the patient has been been experiencing AH's and being aggressive lately. She stated that her daughter has injured herself during these episodes. She stated that she had to intervene per the last episode because she feared that her daughter was about to injure herself again. The patient denies SI/HI's and VH's. She stated that the voices "come and go." She denies recreational drug use and alcohol consumption (etoh). Medications and Allergies Allergies Allergy/AdvReac Type Severity Reaction Status Date / Time No Known Allergies Allergy Verified 01/26/17 15:11 Home Medications Medication Instructions Recorded Confirmed Last Taken Type Haloperidol [Haloperidol] 10 mg PO BID 07/29/16 01/26/17 Unknown History Ibuprofen [Motrin 800 MG tab] 800 mg PO Q6HR PRN 07/29/16 01/26/17 Unknown History LORazepam [LORazepam] 1 mg PO BID 07/29/16 01/26/17 Unknown History cloNIDine-TTS PATCH [Catapres-Tts 1 patch TD Q7D 07/29/16 01/26/17 Unknown History Patch] diphenhydrAMINE [Benadryl CAP] 50 mg PO QHS PRN 07/29/16 01/26/17 Unknown History risperiDONE [RisperDAL] 1 mg PO BID 07/29/16 01/26/17 Unknown History Past psychiatric history - Past Medical History Past Medical History: No medical history Past Surgical History: No surgical history - past Psychiatric treatment and history Psych: Schizophrenia psychiatric treatment history: Patient stated that she see a psychiatrist. The patient could not confirm or deny a fam psy hx. - Social History Social history: lives with family Mental Status Exam - Vital signs Last Vital Signs Temp 98 F 01/27/17 20:26 Pulse 88 01/28/17 03:53 Resp 18 01/28/17 03:53 BP 127/32 01/28/17 03:53 Pulse Ox 100 01/28/17 03:53 - Exam Narrative exam: ROS: (-) depression, (+) psychosis MSE: Appearance: calm, cooperative Behavior: regular eye contact Speech: regular rate and tone Mood: "okay" Affect: labile Thought Process: circumstantial Thought Content: denies SI/HI's and VH's Motor Activity: ambulatory Cognition: A/Ox 3 Insight: limited Judgment: limited Results Result Diagrams: 01/26/17 15:38 01/26/17 15:38 All other labs normal. Assessment and Plan Assessment and plan: Impression: Historical Dx: Bipolar/Schizophrenia/Autism. Unspecified Psychotic DO. Today patient is calm and cooperative during the assessment. DDx: Schizoaffective DO Recommendation/Plan: Continue 1013. Start Trileptal 600 mg PO TID for mood, Risperdal 2 mg PO BID for psychotic symptoms/mood, and Cogentin 0.5 mg PO HS for EPS prevention. Discussed with patient and her mother possible metabolic side effects of Risperdal.
[2017-01-28] MEDS: TRILEPTAL PO SCH (21:35)
[2017-01-28] MEDS: RisperDAL PO SCH (22:16)
[2017-01-28] MEDS: COGENTIN PO SCH (22:16)
[2017-01-29] MEDS: TRILEPTAL PO SCH ×3 (10:00→22:05)
[2017-01-29] MEDS: COGENTIN PO SCH ×2 (10:00→22:04)
[2017-01-29] MEDS: RisperDAL PO SCH (22:06)
[2017-01-29] MEDS ORDERED: TRILEPTAL ONE (23:50)
[2017-01-30 06:22] VITALS: BP 124/88
[2017-01-30] MEDS: TRILEPTAL PO SCH ×2 (09:12→15:40)
--- NOTE | 2017-01-30 10:42 | Progress Note ---
Subjective - Reason for Consult Consult date: 01/30/17 Reason for consult: Psychiatry Follow-up - Chief Complaint Chief complaint: "No more voices" A 26-year-old bipolar/schizophrenic here with complaint of auditory hallucinations. Today patient is calm and cooperative during the assessment. Patient denies hearing voices. She is adamant about wanting to go home. Per the staff, patient has been appropriate since her admission. She denies SI/HI's and AVH's. She denies any side effects of her medications. Mental Status Exam - Vital signs Last Vital Signs Temp 97.5 F L 01/29/17 22:00 Pulse 98 H 01/29/17 22:00 Resp 18 01/29/17 22:00 BP 124/88 01/29/17 22:00 Pulse Ox 99 01/29/17 22:00 - Exam Narrative exam: MSE: Appearance: calm, cooperative Behavior: regular eye contact Speech: regular rate and tone Mood: "well" Affect: congruent to mood Thought Process: circumstantial Thought Content: denies SI/HI's and VH's Motor Activity: ambulatory Cognition: A/Ox 3 Insight: limited Judgment: limited Assessment and Plan Impression: Historical Dx: Bipolar/Schizophrenia/Autism. Unspecified Psychotic DO. Today patient is calm and cooperative during the assessment. Patient is no threat to self and others. Recommendation/Plan: Rescind 1013. Continue Trileptal 600 mg PO TID for mood, Risperdal 2 mg PO BID for psychotic symptoms/mood, and Cogentin 0.5 mg PO HS for EPS prevention. Discussed with patient and her mother possible metabolic side effects of Risperdal. Patient has a psychiatrist (Dr. Mccormick) for outpatient psy services.
[2017-01-30] MEDS: COGENTIN PO SCH (12:35)
== END 2017-01-30 18:43 ==
LOC: ED 14:53 → EEVIPCON 14:53 → ED 01-30 18:43
DX: R44.0 Auditory hallucinations (principal); F31.9 Bipolar disorder, unspecified; F20.9 Schizophrenia, unspecified; E66.9 Obesity, unspecified
CPT/HCPCS: 36415; 80048; 80307; 81001; 84703; 85025; 99285; G0480; 80320

== ENCOUNTER 2017-04-21 10:23 | Emergency (ER) | payer MEDICAID ==
[2017-04-21 12:12] VITALS: BP 120/75
[2017-04-21] MEDS ORDERED: TETRACAINE 0.5% OU PRN (12:45)
[2017-04-21] MEDS ORDERED: FUL-GLO OP ONE (12:45)
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
[2017-04-21] MEDS ORDERED: TYLENOL ONE (13:37)
== END 2017-04-21 13:41 | disposition home or self-care (01) ==
LOC: ED 10:23
DX: H10.33 Unspecified acute conjunctivitis, bilateral (principal)
CPT/HCPCS: 99283

== ENCOUNTER 2018-07-03 20:39 | Emergency (ER) | payer MEDICAID ==
[2018-07-03] MEDS ORDERED: TYLENOL ONE (20:47)
[2018-07-03] MEDS ORDERED: TYLENOL PO ONE (20:51)
[2018-07-03 22:12] LABS: Bilirubin,Urine NEG (Negative); Blood,Urine NEG (Negative); Color,Urine Colorless (Yellow); Protein,Urine <15 mg/dL mg/dL (Negative); RBC,Urine < 1.0 /HPF (0.0-6.0); Urobilinogen,Urine < 2.0 mg/dL (<2.0); WBC,Urine < 1.0 /HPF (0.0-6.0)
[2018-07-03 22:19] LABS: HCG Qualitative,Urine Negative (Negative)
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
[2018-07-04] MEDS ORDERED: IBUPROFEN PO ONE (03:03)
[2018-07-04 05:02] VITALS: BP 118/78
== END 2018-07-04 04:00 | disposition home or self-care (01) ==
LOC: ED 20:39
DX: S39.012A Strain of muscle, fascia and tendon of lower back, initial encounter (principal); F20.9 Schizophrenia, unspecified; E66.9 Obesity, unspecified; Z68.42 Body mass index [BMI] 45.0-49.9, adult; F31.9 Bipolar disorder, unspecified; F84.0 Autistic disorder; X50.1XXA Overexertion from prolonged static or awkward postures, initial encounter; Y93.89 Activity, other specified; Y92.098 Other place in other non-institutional residence as the place of occurrence of the external cause; Y99.8 Other external cause status
CPT/HCPCS: 81001; 81025; 99284

== ENCOUNTER 2018-07-28 18:34 | Emergency (ER) | payer MEDICAID ==
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
[2018-07-28 19:31] LABS: Basophils % (Auto) 0.5 % (0.0-1.8); Eosinophils # (Auto) 0.1 K/mm3 (0.0-0.4); Eosinophils % (Auto) 1.1 % (0.0-4.3); Hematocrit 34.7 % (30.3-42.9); Hemoglobin 11.7 gm/dl (10.1-14.3); Lymphocytes # (Auto) 2.3 K/mm3 (1.2-5.4); Lymphocytes % (Auto) 32.3 % (13.4-35.0); Mean Corpuscular HGB Conc 34 % (30-34); Mean Corpuscular Volume 81 fl (79-97); Monocytes # (Auto) 0.6 K/mm3 (0.0-0.8); Monocytes % (Auto) 8.7 % (0.0-7.3); Platelet Count 232 K/mm3 (140-440); Red Blood Count 4.27 M/mm3 (3.65-5.03); Red Cell Distribution Width 15.5 % (13.2-15.2)
[2018-07-28 19:31] LABS: Bacteria,Urine 1+ /HPF (Negative); Bilirubin,Urine NEG (Negative); Blood,Urine NEG (Negative); Color,Urine Straw (Yellow); Protein,Urine <15 mg/dL mg/dL (Negative); Urobilinogen,Urine < 2.0 mg/dL (<2.0)
[2018-07-28 19:37] LABS: Amphetamine Screen,Urine PRESUMPTIVE NEGATIVE; Benzodiazepines Screen,Urine PRESUMPTIVE NEGATIVE; Cannabinoid Screen,Urine PRESUMPTIVE NEGATIVE; Cocaine Screen,Urine PRESUMPTIVE NEGATIVE; Methadone Screen,Urine PRESUMPTIVE NEGATIVE; Opiate Screen,Urine PRESUMPTIVE NEGATIVE
[2018-07-28 19:52] LABS: BUN/Creatinine Ratio 20; Blood Urea Nitrogen 16 mg/dL (7-17); Calcium 9.6 mg/dL (8.4-10.2); Hemolysis Index 8
[2018-07-29 14:53] VITALS: BP 162/78
== END 2018-07-29 15:57 | disposition home or self-care (01) ==
LOC: EEVIPCON 18:34 → ED 18:34
DX: F20.9 Schizophrenia, unspecified (principal); F84.0 Autistic disorder; F31.9 Bipolar disorder, unspecified; F39 Unspecified mood [affective] disorder; Z59.0 Homelessness; Z79.899 Other long term (current) drug therapy
CPT/HCPCS: 36415; 80048; 80307; 81001; 84703; 85025; 99284; G0480; 80320

== ENCOUNTER 2018-08-27 10:26 | Emergency (ER) | payer MEDICAID ==
[2018-08-27 10:48] VITALS: BP 129/72
--- NOTE | 2018-08-27 11:03 | Emergency Department Report ---
ED Medical Clearance HPI - General Chief complaint: Medical Clearance Stated complaint: MEDICATION REFILL Time Seen by Provider: 08/27/18 10:53 Source: patient Mode of arrival: Ambulatory - History of Present Illness Initial comments: She is a 28-year-old female Emergency room with her guardian for medication refills. Mother states that the patient's interest out of business and she needs a refill of her psych medications. Patient is not having any complaints except for med refill. Reason for Medical Clearance: psychiatric condition Place: home Alledged Intoxication: No Compliant with Home Medications: Yes Associated Symptoms: denies other symptoms. denies: chest pain, shortness of breath, palpitations, diaphoresis, confusion, cough, fever/chills, headaches, anorexia, malaise, nausea/vomiting, rash, seizure, syncope, weakness Treatments Prior to Arrival: none Home medications: Previous Rx's Medication Instructions Recorded Last Taken Type Albuterol Sulfate [Ventolin HFA] 2 puff IH Q4H PRN #1 hfa.aer.ad 03/26/18 Unknown Rx Divalproex ER [Depakote ER] 500 mg PO BID #60 tablet 07/29/18 Unknown Rx LORazepam [Ativan] 2 mg PO BID PRN #30 tablet 07/29/18 Unknown Rx OLANZapine [Zyprexa] 15 mg PO QHS #30 tablet 07/29/18 Unknown Rx fluPHENAZine HCl [fluPHENAZine] 5 mg PO BID #60 tablet 07/29/18 Unknown Rx Allergies/Adverse reactions: Allergies Allergy/AdvReac Type Severity Reaction Status Date / Time No Known Allergies Allergy Verified 08/27/18 10:27 ED Review of Systems ROS: Stated complaint: MEDICATION REFILL Other details as noted in HPI Constitutional: denies: chills, fever Eyes: denies: eye pain, eye discharge, vision change ENT: denies: ear pain, throat pain Respiratory: denies: cough, shortness of breath, wheezing Cardiovascular: denies: chest pain, palpitations Endocrine: no symptoms reported Gastrointestinal: denies: abdominal pain, nausea, diarrhea Genitourinary: denies: urgency, dysuria, discharge Musculoskeletal: denies: back pain, joint swelling, arthralgia Skin: denies: rash, lesions Neurological: denies: headache, weakness, paresthesias Psychiatric: denies: anxiety, depression Hematological/Lymphatic: denies: easy bleeding, easy bruising ED Past Medical Hx - Past Medical History Previous Medical History?: Yes Hx Psychiatric Treatment: Yes (schiophrenia, Mood disorder, Bipolar, Violent, SI,) Additional medical history: schizophrenia,autism, obesity - Surgical History Past Surgical History?: No - Family History Family history: no significant - Social History Smoking Status: Never Smoker Substance Use Type: None - Medications Home Medications: Home Medications Medication Instructions Recorded Confirmed Last Taken Type Albuterol Sulfate [Ventolin HFA] 2 puff IH Q4H PRN #1 hfa.aer.ad 03/26/18 07/29/18 Unknown Rx Divalproex ER [Depakote ER] 500 mg PO BID #60 tablet 07/29/18 Unknown Rx LORazepam [Ativan] 2 mg PO BID PRN #30 tablet 07/29/18 Unknown Rx OLANZapine [Zyprexa] 15 mg PO QHS #30 tablet 07/29/18 Unknown Rx fluPHENAZine HCl [fluPHENAZine] 5 mg PO BID #60 tablet 07/29/18 Unknown Rx ED Physical Exam - General Limitations: No Limitations General appearance: alert, in no apparent distress - Head Head exam: Present: atraumatic, normocephalic - Eye Eye exam: Present: normal appearance, PERRL Pupils: Present: normal accommodation - ENT ENT exam: Present: mucous membranes moist - Neck Neck exam: Present: normal inspection - Respiratory Respiratory exam: Present: normal lung sounds bilaterally. Absent: respiratory distress - Cardiovascular Cardiovascular Exam: Present: regular rate, normal rhythm. Absent: systolic murmur, diastolic murmur, rubs, gallop - GI/Abdominal GI/Abdominal exam: Present: soft, normal bowel sounds - Extremities Exam Extremities exam: Present: normal inspection - Back Exam Back exam: Present: normal inspection - Neurological Exam Neurological exam: Present: alert, oriented X3 - Psychiatric Psychiatric exam: Present: normal affect, normal mood - Skin Skin exam: Present: warm, dry, intact, normal color. Absent: rash ED Course Vital Signs 08/27/18 10:46 Temperature 98 F Pulse Rate 81 Respiratory 18 Rate Blood Pressure 129/72 O2 Sat by Pulse 98 Oximetry ED Medical Decision Making - Medical Decision Making Patient is a 28-year-old female that presents emergency report medication refill. At this time patient does not have emergency medical condition. Patient is medically cleared and discharged home. Patient instructed to follow up with her primary care or find a new psychiatrist to refill her medications. Patient has not worn any further investigation in the emergency room. - Differential Diagnosis medication refills for autism and schizophrenia. ED Disposition Clinical Impression: Medication refill Schizophrenia Qualifiers: Schizophrenia type: unspecified Qualified Code(s): F20.9 - Schizophrenia, unspecified Disposition: DC-01 TO HOME OR SELFCARE Is pt being admited?: No Does the pt Need Aspirin: No Condition: Stable Additional Instructions: patient to follow up with pcp for medication refills. patient to continue all meds. Patient to follow up with psychiatrist for further refills Referrals: MAURIZIO PIKE MD [Staff Physician] - 24 Hours Time of Disposition: 10:58
== END 2018-08-27 11:14 | disposition home or self-care (01) ==
LOC: ED 10:26
DX: F20.9 Schizophrenia, unspecified (principal); F31.9 Bipolar disorder, unspecified
CPT/HCPCS: 99282

== ENCOUNTER 2018-09-09 10:01 | Outpatient (CLI) | payer MEDICAID ==
[2018-09-09 10:48] LABS: Hematocrit 34.5 % (30.3-42.9); Hemoglobin 11.7 gm/dl (10.1-14.3); Mean Corpuscular HGB Conc 34 % (30-34); Mean Corpuscular Volume 80 fl (79-97); Platelet Count 226 K/mm3 (140-440); Red Blood Count 4.29 M/mm3 (3.65-5.03); Red Cell Distribution Width 15.7 % (13.2-15.2)
[2018-09-09 11:12] LABS: Alanine Aminotransferase 16 units/L (7-56); Albumin 3.8 g/dL (3.9-5); BUN/Creatinine Ratio 17; Blood Urea Nitrogen 12 mg/dL (7-17); Calcium 8.9 mg/dL (8.4-10.2); Chol/HDL Ratio 3.68 %; HDL Cholesterol 35 mg/dL (40-59); Hemolysis Index 1; LDL Cholesterol,Direct 97 mg/dL (50-130)
[2018-09-16 06:22] LABS: Vitamin D, 25-OH, D2 SEE SCANNED RESULT
== END 2018-09-09 10:02 | disposition home or self-care (01) ==
LOC: LAB 10:01
PROVIDERS: ATTEND Internal Medicine
DX: Z00.01 Encounter for general adult medical examination with abnormal findings (principal); F20.9 Schizophrenia, unspecified; F31.9 Bipolar disorder, unspecified; R73.09 Other abnormal glucose
CPT/HCPCS: 36415; 80053; 80061; 82306; 82607; 83036; 84443; 85027

== ENCOUNTER 2018-10-05 23:22 | Emergency (ER) | payer MEDICAID ==
[2018-10-06 00:05] LABS: Basophils # (Auto) 0.1 K/mm3 (0.0-0.1); Basophils % (Auto) 0.6 % (0.0-1.8); Eosinophils # (Auto) 0.1 K/mm3 (0.0-0.4); Eosinophils % (Auto) 1.4 % (0.0-4.3); Hematocrit 35.3 % (30.3-42.9); Hemoglobin 11.7 gm/dl (10.1-14.3); Lymphocytes # (Auto) 2.9 K/mm3 (1.2-5.4); Lymphocytes % (Auto) 34.3 % (13.4-35.0); Mean Corpuscular HGB Conc 33 % (30-34); Mean Corpuscular Volume 82 fl (79-97); Monocytes # (Auto) 0.8 K/mm3 (0.0-0.8); Monocytes % (Auto) 8.9 % (0.0-7.3); Platelet Count 246 K/mm3 (140-440); Red Blood Count 4.31 M/mm3 (3.65-5.03); Red Cell Distribution Width 15.5 % (13.2-15.2)
[2018-10-06 00:27] LABS: Calcium 9.4 mg/dL (8.4-10.2); Hemolysis Index 2
[2018-10-06 00:29] LABS: Bilirubin,Urine NEG (Negative); Blood,Urine NEG (Negative); Color,Urine Straw (Yellow); Protein,Urine <15 mg/dL mg/dL (Negative); Urobilinogen,Urine < 2.0 mg/dL (<2.0); WBC,Urine < 1.0 /HPF (0.0-6.0)
[2018-10-06 00:44] LABS: Amphetamine Screen,Urine PRESUMPTIVE NEGATIVE; Benzodiazepines Screen,Urine PRESUMPTIVE NEGATIVE; Cannabinoid Screen,Urine PRESUMPTIVE NEGATIVE; Cocaine Screen,Urine PRESUMPTIVE NEGATIVE; Methadone Screen,Urine PRESUMPTIVE NEGATIVE; Opiate Screen,Urine PRESUMPTIVE NEGATIVE
[2018-10-06 01:00] LABS: BUN/Creatinine Ratio 20; Blood Urea Nitrogen 18 mg/dL (7-17)
--- NOTE | 2018-10-06 06:18 | Emergency Department Report ---
ED Psych HPI - General Chief Complaint: Psych Stated Complaint: PYSCHOTIC EPISODE Time Seen by Provider: 10/06/18 04:44 Source: patient, family, EMS Mode of arrival: Ambulatory Limitations: Other - History of Present Illness Initial Comments: This is a 28 year old patient with a history of autism. Apparently she is dissatisfied with her [facility] day[facility] center. She came home last night and told her mother she did not want to go there. This was associated with some chest pounding but no actual significant injury nor property damage. The mother brought the patient here for evaluation. The patient does appear to be appreciably autistic however she is able to communicate. She tells me that she needs a new medicine. She has been evaluated by Larry [facility] mental health counselor. He states that she does not have a regular psychiatrist. He states that the patient may be discharged and that the mother is willing to take her home now. He has recommended referrals. The patient also has a designated social staff worker who is to assist the mother with the discharge plan. At the time of my encounter the patient is cooperative and not acutely ps ychotic. She is not expressing any violent thoughts nor intent for self-harm. Complaint: other -: hour(s) Associated Psychiatric Symptoms: other (behavioral change) History of same: Yes Quality: intermittent Improves With: none Worsens With: none Context: other (doesn't like daycare) Associated Symptoms: denies other symptoms Treatments Prior to Arrival: none If Self Harm: other - Related Data Previous Rx's Medication Instructions Recorded Last Taken Type Albuterol Sulfate [Ventolin HFA] 2 puff IH Q4H PRN #1 hfa.aer.ad 03/26/18 Unknown Rx Divalproex ER [Depakote ER] 500 mg PO BID #60 tablet 07/29/18 Unknown Rx LORazepam [Ativan] 2 mg PO BID PRN #30 tablet 07/29/18 Unknown Rx OLANZapine [Zyprexa] 15 mg PO QHS #30 tablet 07/29/18 Unknown Rx fluPHENAZine HCl [fluPHENAZine] 5 mg PO BID #60 tablet 07/29/18 Unknown Rx Allergies Allergy/AdvReac Type Severity Reaction Status Date / Time No Known Allergies Allergy Verified 08/27/18 10:27 ED Review of Systems ROS: Stated complaint: PYSCHOTIC EPISODE Other details as noted in HPI Comment: Unobtainable due to pts medical conditions (patient has no other complaints unavailable review limited secondary to psychiatric condition) ED Past Medical Hx - Past Medical History Previous Medical History?: Yes Hx Psychiatric Treatment: Yes (schiophrenia, Mood disorder, Bipolar, Violent, SI,) Additional medical history: schizophrenia,autism, obesity - Surgical History Past Surgical History?: No - Social History Smoking Status: Never Smoker Substance Use Type: None - Medications Home Medications: Home Medications Medication Instructions Recorded Confirmed Last Taken Type Albuterol Sulfate [Ventolin HFA] 2 puff IH Q4H PRN #1 hfa.aer.ad 03/26/18 10/06/18 Unknown Rx Divalproex ER [Depakote ER] 500 mg PO BID #60 tablet 07/29/18 10/06/18 Unknown Rx LORazepam [Ativan] 2 mg PO BID PRN #30 tablet 07/29/18 10/06/18 Unknown Rx OLANZapine [Zyprexa] 15 mg PO QHS #30 tablet 07/29/18 10/06/18 Unknown Rx fluPHENAZine HCl [fluPHENAZine] 5 mg PO BID #60 tablet 07/29/18 10/06/18 Unknown Rx ED Physical Exam - General Limitations: Other (schizophrenia) General appearance: alert, in no apparent distress - Head Head exam: Present: atraumatic, normocephalic - Eye Eye exam: Present: normal appearance. Absent: scleral icterus - ENT ENT exam: Present: mucous membranes moist - Neck Neck exam: Present: normal inspection - Respiratory Respiratory exam: Present: normal lung sounds bilaterally. Absent: respiratory distress - Cardiovascular Cardiovascular Exam: Present: regular rate, normal rhythm. Absent: systolic murmur, diastolic murmur, rubs, gallop - GI/Abdominal GI/Abdominal exam: Present: soft, normal bowel sounds. Absent: distended, tenderness, guarding, rebound - Extremities Exam Extremities exam: Present: normal inspection - Back Exam Back exam: Present: normal inspection - Neurological Exam Neurological exam: Present: alert, oriented X3, CN II-XII intact. Absent: motor sensory deficit - Psychiatric Psychiatric exam: Present: normal mood, flat affect - Skin Skin exam: Present: warm, dry, intact, normal color. Absent: rash ED Course Vital Signs 10/05/18 23:25 Temperature 97.9 F Pulse Rate 93 H Respiratory 18 Rate Blood Pressure 132/73 O2 Sat by Pulse 97 Oximetry ED Medical Decision Making - Lab Data Result diagrams: 10/05/18 23:33 10/05/18 23:33 Laboratory Results - last 24 hr 10/05/18 10/05/18 10/05/18 23:33 23:33 23:33 WBC RBC Hgb Hct MCV MCH MCHC RDW Plt Count Lymph % (Auto) [place] % (Auto) Eos % (Auto) Baso % (Auto) Lymph # [place] # Eos # Baso # Seg Neutrophils % Seg Neutrophils # Sodium 137 Potassium 4.0 Chloride 99.4 Carbon Dioxide 24 Anion Gap 18 BUN 18 H Creatinine 0.9 Estimated GFR > 60 BUN/Creatinine Ratio 20 Glucose 98 Calcium 9.4 HCG, Qual Urine Color Urine Turbidity Urine pH Ur Specific [place] Urine Protein Urine Glucose (UA) Urine Ketones Urine Blood Urine Nitrite Urine Bilirubin Urine Urobilinogen Ur Leukocyte Esterase Urine WBC (Auto) Urine RBC (Auto) U Epithel Cells (Auto) Salicylates < 0.3 L Urine Opiates Screen Urine Methadone Screen Acetaminophen < 5.0 L Ur Barbiturates Screen Ur Phencyclidine Scrn Ur Amphetamines Screen U Benzodiazepines Scrn Urine Cocaine Screen U Marijuana (THC) Screen Drugs of Abuse Note Plasma/Serum Alcohol 10/05/18 10/05/18 10/05/18 23:33 23:33 23:33 WBC 8.5 RBC 4.31 Hgb 11.7 Hct 35.3 MCV 82 MCH 27 L MCHC 33 RDW 15.5 H Plt Count 246 Lymph % (Auto) 34.3 [place] % (Auto) 8.9 H Eos % (Auto) 1.4 Baso % (Auto) 0.6 Lymph # 2.9 [place] # 0.8 Eos # 0.1 Baso # 0.1 Seg Neutrophils % 54.8 Seg Neutrophils # 4.7 Sodium Potassium Chloride Carbon Dioxide Anion Gap BUN Creatinine Estimated GFR BUN/Creatinine Ratio Glucose Calcium HCG, Qual Negative Urine Color Urine Turbidity Urine pH Ur Specific [place] Urine Protein Urine Glucose (UA) Urine Ketones Urine Blood Urine Nitrite Urine Bilirubin Urine Urobilinogen Ur Leukocyte Esterase Urine WBC (Auto) Urine RBC (Auto) U Epithel Cells (Auto) Salicylates Urine Opiates Screen Urine Methadone Screen Acetaminophen Ur Barbiturates Screen Ur Phencyclidine Scrn Ur Amphetamines Screen U Benzodiazepines Scrn Urine Cocaine Screen U Marijuana (THC) Screen Drugs of Abuse Note Plasma/Serum Alcohol < 0.01 10/05/18 10/05/18 23:42 23:42 WBC RBC Hgb Hct MCV MCH MCHC RDW Plt Count Lymph % (Auto) [place] % (Auto) Eos % (Auto) Baso % (Auto) Lymph # [place] # Eos # Baso # Seg Neutrophils % Seg Neutrophils # Sodium Potassium Chloride Carbon Dioxide Anion Gap BUN Creatinine Estimated GFR BUN/Creatinine Ratio Glucose Calcium HCG, Qual Urine Color Straw Urine Turbidity Clear Urine pH 6.0 Ur Specific [place] 1.012 Urine Protein <15 mg/dl Urine Glucose (UA) Neg Urine Ketones Neg Urine Blood Neg Urine Nitrite Neg Urine Bilirubin Neg Urine Urobilinogen < 2.0 Ur Leukocyte Esterase Neg Urine WBC (Auto) < 1.0 Urine RBC (Auto) 1.0 U Epithel Cells (Auto) < 1.0 Salicylates Urine Opiates Screen Presumptive negative Urine Methadone Screen Presumptive negative Acetaminophen Ur Barbiturates Screen Presumptive negative Ur Phencyclidine Scrn Presumptive negative Ur Amphetamines Screen Presumptive negative U Benzodiazepines Scrn Presumptive negative Urine Cocaine Screen Presumptive negative U Marijuana (THC) Screen Presumptive negative Drugs of Abuse Note Disclamer Plasma/Serum Alcohol Laboratory Results - last 24 hr 10/05/18 10/05/18 10/05/18 23:33 23:33 23:33 WBC RBC Hgb Hct MCV MCH MCHC RDW Plt Count Lymph % (Auto) [place] % (Auto) Eos % (Auto) Baso % (Auto) Lymph # [place] # Eos # Baso # Seg Neutrophils % Seg Neutrophils # Sodium 137 Potassium 4.0 Chloride 99.4 Carbon Dioxide 24 Anion Gap 18 BUN 18 H Creatinine 0.9 Estimated GFR > 60 BUN/Creatinine Ratio 20 Glucose 98 Calcium 9.4 HCG, Qual Urine Color Urine Turbidity Urine pH Ur Specific [place] Urine Protein Urine Glucose (UA) Urine Ketones Urine Blood Urine Nitrite Urine Bilirubin Urine Urobilinogen Ur Leukocyte Esterase Urine WBC (Auto) Urine RBC (Auto) U Epithel Cells (Auto) Salicylates < 0.3 L Urine Opiates Screen Urine Methadone Screen Acetaminophen < 5.0 L Ur Barbiturates Screen Ur Phencyclidine Scrn Ur Amphetamines Screen U Benzodiazepines Scrn Urine Cocaine Screen U Marijuana (THC) Screen Drugs of Abuse Note Plasma/Serum Alcohol 10/05/18 10/05/18 10/05/18 23:33 23:33 23:33 WBC 8.5 RBC 4.31 Hgb 11.7 Hct 35.3 MCV 82 MCH 27 L MCHC 33 RDW 15.5 H Plt Count 246 Lymph % (Auto) 34.3 [place] % (Auto) 8.9 H Eos % (Auto) 1.4 Baso % (Auto) 0.6 Lymph # 2.9 [place] # 0.8 Eos # 0.1 Baso # 0.1 Seg Neutrophils % 54.8 Seg Neutrophils # 4.7 Sodium Potassium Chloride Carbon Dioxide Anion Gap BUN Creatinine Estimated GFR BUN/Creatinine Ratio Glucose Calcium HCG, Qual Negative Urine Color Urine Turbidity Urine pH Ur Specific [place] Urine Protein Urine Glucose (UA) Urine Ketones Urine Blood Urine Nitrite Urine Bilirubin Urine Urobilinogen Ur Leukocyte Esterase Urine WBC (Auto) Urine RBC (Auto) U Epithel Cells (Auto) Salicylates Urine Opiates Screen Urine Methadone Screen Acetaminophen Ur Barbiturates Screen Ur Phencyclidine Scrn Ur Amphetamines Screen U Benzodiazepines Scrn Urine Cocaine Screen U Marijuana (THC) Screen Drugs of Abuse Note Plasma/Serum Alcohol < 0.01 10/05/18 10/05/18 23:42 23:42 WBC RBC Hgb Hct MCV MCH MCHC RDW Plt Count Lymph % (Auto) [place] % (Auto) Eos % (Auto) Baso % (Auto) Lymph # [place] # Eos # Baso # Seg Neutrophils % Seg Neutrophils # Sodium Potassium Chloride Carbon Dioxide Anion Gap BUN Creatinine Estimated GFR BUN/Creatinine Ratio Glucose Calcium HCG, Qual Urine Color Straw Urine Turbidity Clear Urine pH 6.0 Ur Specific [place] 1.012 Urine Protein <15 mg/dl Urine Glucose (UA) Neg Urine Ketones Neg Urine Blood Neg Urine Nitrite Neg Urine Bilirubin Neg Urine Urobilinogen < 2.0 Ur Leukocyte Esterase Neg Urine WBC (Auto) < 1.0 Urine RBC (Auto) 1.0 U Epithel Cells (Auto) < 1.0 Salicylates Urine Opiates Screen Presumptive negative Urine Methadone Screen Presumptive negative Acetaminophen Ur Barbiturates Screen Presumptive negative Ur Phencyclidine Scrn Presumptive negative Ur Amphetamines Screen Presumptive negative U Benzodiazepines Scrn Presumptive negative Urine Cocaine Screen Presumptive negative U Marijuana (THC) Screen Presumptive negative Drugs of Abuse Note Disclamer Plasma/Serum Alcohol Critical care attestation.: If time is entered above; I have spent that time in minutes in the direct care of this critically ill patient, excluding procedure time. ED Disposition Clinical Impression: Mood disorder, Behavior concern Schizophrenia Qualifiers: Schizophrenia type: unspecified Qualified Code(s): F20.9 - Schizophrenia, unspecified Bipolar disorder Qualifiers: Active/Remission status: in partial remission Most recent bipolar episode type: most recent episode unspecified type Qualified Code(s): F31.70 - Bipolar disorder, currently in remission, most recent episode unspecified Disposition: DC-01 TO HOME OR SELFCARE Is pt being admited?: No Does the pt Need Aspirin: No Condition: Stable Instructions: Schizophrenia (ED) Additional Instructions: Return as needed. Discharge instruction per Larry. Referrals: DANIELLE SHELDON MD [Primary Care Provider] - 3-5 Days Out patient, service [Other] - 3-5 Days Time of Disposition: 07:57
[2018-10-06 08:36] VITALS: BP 127/87
== END 2018-10-06 08:36 | disposition home or self-care (01) ==
LOC: ED 23:22
DX: F20.9 Schizophrenia, unspecified (principal); F31.70 Bipolar disorder, currently in remission, most recent episode unspecified
CPT/HCPCS: 36415; 80048; 80307; 81001; 84703; 85025; 99284; G0480; 80320

== ENCOUNTER 2018-11-02 23:46 | Emergency (ER) | payer MEDICAID ==
[2018-11-03 00:58] LABS: Bilirubin,Urine NEG (Negative); Blood,Urine NEG (Negative); Color,Urine Colorless (Yellow); Protein,Urine <15 mg/dL mg/dL (Negative); Urobilinogen,Urine < 2.0 mg/dL (<2.0); WBC,Urine < 1.0 /HPF (0.0-6.0)
[2018-11-03 01:13] LABS: Eosinophils % (Auto) 1.8 % (0.0-4.3); Hematocrit 32.7 % (30.3-42.9); Lymphocytes % (Auto) 34.9 % (13.4-35.0); Mean Corpuscular HGB Conc 34 % (30-34); Mean Corpuscular Volume 81 fl (79-97); Monocytes % (Auto) 9.2 % (0.0-7.3); Platelet Count 222 K/mm3 (140-440); Red Blood Count 4.06 M/mm3 (3.65-5.03); Red Cell Distribution Width 15.7 % (13.2-15.2)
[2018-11-03 01:14] LABS: Basophils % (Auto) 0.4 % (0.0-1.8); Eosinophils # (Auto) 0.2 K/mm3 (0.0-0.4); Monocytes # (Auto) 0.8 K/mm3 (0.0-0.8)
[2018-11-03 01:15] LABS: HCG Qualitative,Urine Negative (Negative)
[2018-11-03 01:21] LABS: Amphetamine Screen,Urine PRESUMPTIVE NEGATIVE; Benzodiazepines Screen,Urine PRESUMPTIVE NEGATIVE; Cannabinoid Screen,Urine PRESUMPTIVE NEGATIVE; Cocaine Screen,Urine PRESUMPTIVE NEGATIVE; Methadone Screen,Urine PRESUMPTIVE NEGATIVE; Opiate Screen,Urine PRESUMPTIVE NEGATIVE
[2018-11-03 01:32] LABS: Alanine Aminotransferase 15 units/L (7-56); Albumin 3.5 g/dL (3.9-5); BUN/Creatinine Ratio 16; Blood Urea Nitrogen 13 mg/dL (7-17); Calcium 8.9 mg/dL (8.4-10.2); Hemolysis Index 8
--- NOTE | 2018-11-03 02:44 | Emergency Department Report ---
ED Psych HPI - General Chief Complaint: Medical Clearance Stated Complaint: MH EVALUATION Time Seen by Provider: 11/03/18 00:57 Source: patient, EMS Mode of arrival: Ambulatory - History of Present Illness Initial Comments: 38-year-old female history of bipolar, schizophrenia, mental retardation, autism presents to the ED for mental health evaluation. Family reported to nurse that they believe the patient's medications need to be adjusted. Patient has been acting out, agitated. Patient reports to me that she was hitting herself in her head with her fist because she is sad and frustrated. Patient does not give any further explanation as to why. Denies suicidal ideation, homicidal ideation. Admits to auditory hallucinations. MD Complaint: other (agitation) -: unknown Quality: getting worse Improves With: none Worsens With: none Associated Symptoms: denies other symptoms Treatments Prior to Arrival: none - Related Data Previous Rx's Medication Instructions Recorded Last Taken Type Albuterol Sulfate [Ventolin HFA] 2 puff IH Q4H PRN #1 hfa.aer.ad 03/26/18 Unknown Rx Divalproex ER [Depakote ER] 500 mg PO BID #60 tablet 07/29/18 Unknown Rx LORazepam [Ativan] 2 mg PO BID PRN #30 tablet 07/29/18 Unknown Rx OLANZapine [Zyprexa] 15 mg PO QHS #30 tablet 07/29/18 Unknown Rx fluPHENAZine HCl [fluPHENAZine] 5 mg PO BID #60 tablet 07/29/18 Unknown Rx Allergies Allergy/AdvReac Type Severity Reaction Status Date / Time No Known Allergies Allergy Verified 08/27/18 10:27 ED Review of Systems ROS: Stated complaint: MH EVALUATION Other details as noted in HPI Comment: All other systems reviewed and negative Psychiatric: auditory hallucinations. denies: visual hallucinations, homicidal thoughts, suicidal thoughts ED Past Medical Hx - Past Medical History Hx Psychiatric Treatment: Yes (schiophrenia, Mood disorder, Bipolar, Violent, SI,) Additional medical history: schizophrenia,autism, obesity - Social History Smoking Status: Never Smoker Substance Use Type: None - Medications Home Medications: Home Medications Medication Instructions Recorded Confirmed Last Taken Type Albuterol Sulfate [Ventolin HFA] 2 puff IH Q4H PRN #1 hfa.aer.ad 03/26/18 10/06/18 Unknown Rx Divalproex ER [Depakote ER] 500 mg PO BID #60 tablet 07/29/18 10/06/18 Unknown Rx LORazepam [Ativan] 2 mg PO BID PRN #30 tablet 07/29/18 10/06/18 Unknown Rx OLANZapine [Zyprexa] 15 mg PO QHS #30 tablet 07/29/18 10/06/18 Unknown Rx fluPHENAZine HCl [fluPHENAZine] 5 mg PO BID #60 tablet 07/29/18 10/06/18 Unknown Rx ED Physical Exam - General Limitations: Physical Limitation, Other General appearance: alert, in no apparent distress - Head Head exam: Present: atraumatic, normocephalic - ENT ENT exam: Present: mucous membranes moist - Neck Neck exam: Present: normal inspection - Respiratory Respiratory exam: Present: normal lung sounds bilaterally. Absent: respiratory distress - Cardiovascular Cardiovascular Exam: Present: regular rate, normal rhythm - GI/Abdominal GI/Abdominal exam: Absent: distended - Extremities Exam Extremities exam: Present: normal inspection - Neurological Exam Neurological exam: Present: alert - Psychiatric Psychiatric exam: Present: normal affect, normal mood - Skin Skin exam: Present: warm, dry, intact, normal color ED Course Vital Signs 11/03/18 11/03/18 11/03/18 00:08 00:32 04:12 Temperature 98.6 F 98.2 F Pulse Rate 71 74 Respiratory 16 16 16 Rate Blood Pressure 118/87 Blood Pressure 134/73 [Right] O2 Sat by Pulse 99 99 99 Oximetry ED Medical Decision Making - Lab Data Result diagrams: 11/03/18 00:56 11/03/18 00:56 - Medical Decision Making Patient is medically clear. Will dispo per psych Critical care attestation.: If time is entered above; I have spent that time in minutes in the direct care of this critically ill patient, excluding procedure time. ED Disposition Clinical Impression: Bipolar disorder, Schizophrenia, Autism Disposition: DC/TX-65 PSY HOSP/PSY UNIT Is pt being admited?: No Condition: Stable Referrals: DANIELLE SHELDON MD [Primary Care Provider] - 3-5 Days
[2018-11-03] MEDS ORDERED: PROLIXIN HCL PO SCH ×2 (14:00)
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
[2018-11-03 17:31] LABS: Alanine Aminotransferase 16 units/L (7-56); Albumin 3.9 g/dL (3.9-5)
[2018-11-03 17:33] LABS: Bilirubin,Direct < 0.2 mg/dL (0-0.2)
[2018-11-03] MEDS: VISTARIL PO SCH (23:27)
[2018-11-03] MEDS: COGENTIN PO SCH (23:27)
[2018-11-04] MEDS: PROLIXIN HCL PO SCH ×3 (03:06→22:30)
[2018-11-04] MEDS: VISTARIL PO SCH ×3 (08:58→20:50)
[2018-11-04] MEDS: COGENTIN PO SCH ×2 (09:30→22:25)
--- NOTE | 2018-11-04 11:59 | Progress Note ---
Subjective - Reason for Consult Consult date: 11/04/18 Reason for consult: follow up - Chief Complaint Chief complaint: "I want to go to [facility]." Patient is a 28 year old female who presents to the emergency room with behavioral disturbances. Her mother is her guardian. Patient has PPHx schizoaffective, bipolar type and autism (ASD). Prior to hospitalization patient had a verbal outburst. Patient was last seen by her outpatient psychiatrist, Dr. Mccormick in July 2018. Her psychiatrist is no longer in practice. She denies SI/HI's and delusions. Limited cognition is noted. She denies auditory hallucinations today. She insists on being transferred to [facility] or another facility. She denies medication side effects. Medication education and treatment plan reviewed with her mother over the phone. Mental Status Exam - Vital signs Last Vital Signs Temp 98.8 F 11/04/18 09:44 Pulse 83 11/04/18 09:44 Resp 20 11/04/18 09:44 BP 122/74 11/04/18 09:44 Pulse Ox 98 11/04/18 09:44 - Exam Narrative exam: Appearance: anxious, cooperative; casually dressed Behavior: regular eye contact Speech: slow Mood: "bad" Affect: anxious Thought Process: impoverished Thought Content: denies AVH today. Will not endorse nor deny SI/HI. Motor Activity: ambulatory Cognition: A/O x 3 Insight: poor Judgment: poor Assessment and Plan Impression: PPHx schizoaffective disorder, bipolar type, ASD. Today the patient is cooperative but anxious during the assessment. She denies AH today. She insists on going to [facility]. UDS negative. VPA is 55.9 and LFTs WNL Recommendation/Plan: 1. Will reassess in 24 hours. 2. Continue Cogentin 0.5mg po BID prevention of EPS, continue fluphenazine 15mg po BID psychosis, vistaril 25mg po TID anxiety. Discussed metabolic side effects of fluphenazine and anti-cholinergic side effects of vistaril. 3. Recommend CIWA -monitor for benzodiazepine withdrawal. Her mother requests daily updates. Disposition: Patient referred to inpatient psychiatric services. Will staff with Dr. Nelly Mobley
[2018-11-04 21:29] VITALS: BP 136/101
--- NOTE | 2018-11-05 00:12 | Emergency Department Report ---
Blank Doc - Documentation Documentation: The nurses came to me several times tonight stating that the patient of inabil ity to urinate all day. She was asking for a pill to help her urinate. Patient is 28 years old and should not have any reason for urinary retention. It is difficult to palpate bladder due to body habitus. Rodegrs catheter was inserted and only 180 mL of urine was obtained. Patient is not exhibiting any signs of urinary retention and Rodgers catheter was removed. She will continue to wait for psychiatric placement.
[2018-11-05] MEDS: VISTARIL PO SCH (08:59)
[2018-11-05] MEDS: COGENTIN PO SCH (10:28)
[2018-11-05] MEDS: PROLIXIN HCL PO SCH (10:44)
--- NOTE | 2018-11-05 13:17 | Progress Note ---
Subjective - Reason for Consult Consult date: 11/05/18 Reason for consult: Psychiatric Follow-up Evaluation Mental Status Exam - Vital signs Last Vital Signs Temp 98.5 F 11/04/18 21:28 Pulse 78 11/04/18 21:28 Resp 18 11/04/18 21:28 BP 136/101 11/04/18 21:28 Pulse Ox 97 11/04/18 21:28
== END 2018-11-05 13:15 ==
LOC: EEVIPCON 23:46 → ED 23:46
DX: F31.9 Bipolar disorder, unspecified (principal); F20.9 Schizophrenia, unspecified; F84.0 Autistic disorder; F39 Unspecified mood [affective] disorder; E66.9 Obesity, unspecified
CPT/HCPCS: 36415; 51702; 80053; 80076; 80164; 80307; 81001; 81025; 85025; 99284; G0480; 51701; 80320; Q0177

== ENCOUNTER 2018-12-28 17:12 | Emergency (ER) | payer MEDICAID ==
--- NOTE | 2018-12-28 17:25 | Emergency Department Report ---
Blank Doc - Documentation Documentation: This is a 28-year-old female that presents with abdominal pain. Stated she ac cidentally act a piece of soap. Denies any vomiting. This initial assessment/diagnostic orders/clinical plan/treatment(s) is/are subject to change based on patient's health status, clinical progression and re- assessment by fellow clinical providers in the ED. Further treatment and workup at subsequent clinical providers discretion. Patient/guardians urged not to elope from the ED as their condition may be serious if not clinically assessed and managed. Initial orders include: 1- Patient sent to [facility] for further evaluation and treatment 2- labs 3- UA
[2018-12-28 18:15] LABS: Basophils % (Auto) 0.6 % (0.0-1.8); Eosinophils # (Auto) 0.1 K/mm3 (0.0-0.4); Eosinophils % (Auto) 1.2 % (0.0-4.3); Hemoglobin 11.7 gm/dl (10.1-14.3); Lymphocytes # (Auto) 2.7 K/mm3 (1.2-5.4); Lymphocytes % (Auto) 38.5 % (13.4-35.0); Mean Corpuscular HGB Conc 34 % (30-34); Mean Corpuscular Volume 80 fl (79-97); Monocytes # (Auto) 0.5 K/mm3 (0.0-0.8); Monocytes % (Auto) 7.4 % (0.0-7.3); Platelet Count 225 K/mm3 (140-440); Red Blood Count 4.38 M/mm3 (3.65-5.03); Red Cell Distribution Width 15.7 % (13.2-15.2)
[2018-12-28 18:25] LABS: Bilirubin,Urine NEG (Negative); Blood,Urine NEG (Negative); Color,Urine Yellow (Yellow); Protein,Urine <15 mg/dL mg/dL (Negative); Urobilinogen,Urine < 2.0 mg/dL (<2.0)
[2018-12-28 18:33] LABS: Alanine Aminotransferase 13 units/L (7-56); BUN/Creatinine Ratio 12; Blood Urea Nitrogen 11 mg/dL (7-17); Calcium 9.1 mg/dL (8.4-10.2); Hemolysis Index 1
[2018-12-28 18:42] LABS: Bilirubin,Direct < 0.2 mg/dL (0-0.2)
[2018-12-28 23:14] VITALS: BP 109/71
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
[2018-12-28] MEDS ORDERED: TYLENOL PO ONE (23:40)
[2018-12-28] MEDS ORDERED: ALUM-MAG HYDROX-SIMETH 200-200-20MG/5ML PO ONE (23:41)
[2018-12-28] MEDS ORDERED: ALUM-MAG HYDROX-SIMETH 200-200-20MG/5ML ONE (23:45)
[2018-12-28] MEDS ORDERED: TYLENOL ONE (23:45)
== END 2018-12-29 01:31 | disposition home or self-care (01) ==
LOC: ED 17:12
DX: T55.0X1A Toxic effect of soaps, accidental (unintentional), initial encounter (principal); F20.9 Schizophrenia, unspecified; F31.9 Bipolar disorder, unspecified; F39 Unspecified mood [affective] disorder; F84.0 Autistic disorder; E66.01 Morbid (severe) obesity due to excess calories; Z68.42 Body mass index [BMI] 45.0-49.9, adult; Z79.899 Other long term (current) drug therapy; Y92.89 Other specified places as the place of occurrence of the external cause
CPT/HCPCS: 36415; 80048; 80076; 81001; 84703; 85025; 99284

== ENCOUNTER 2019-01-21 01:27 | Emergency (ER) | payer MEDICAID ==
[2019-01-21] MEDS ORDERED: PEPCID PO ONE (01:38)
--- NOTE | 2019-01-21 01:39 | Event Note ---
Date: 01/21/19 Medical screening examination: 28-year-old female, known to this provider, complaining of belly pain. Belly nontender. Now asking to eat. Does not appear to be in any acute distress. Patient can be fed, we will give her Pepcid, and check urine test
[2019-01-21 02:03] LABS: HCG Qualitative,Urine Negative (Negative)
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
[2019-01-21 06:38] VITALS: BP 120/84
== END 2019-01-21 05:50 | disposition home or self-care (01) ==
LOC: ED 01:27
DX: R10.13 Epigastric pain (principal); F20.9 Schizophrenia, unspecified; F31.9 Bipolar disorder, unspecified
CPT/HCPCS: 81025

== ENCOUNTER 2019-02-15 16:17 | Emergency (ER) | payer MEDICAID ==
[2019-02-15 17:10] VITALS: BP 118/68
--- NOTE | 2019-02-15 17:12 | Event Note ---
ED Screening Note Date of service: 02/15/19 Time: 17:07 ED Screening Note: This is a 28 y.o. F. that presents to the ER after a syncopal episode. Mom states patient fainted while walking to the pharmacy. PMH of schizophrenia, autism, and bipolar Mom denies history of seizures. This initial assessment/diagnostic orders/clinical plan/treatment(s) is/are subject to change based on patients health status, clinical progression and re- assessment by fellow clinical providers in the ED. Further treatment and workup at subsequent clinical providers discretion. Patient/guardian urged not to elope from the ED as their condition may be serious if not clinically assessed and managed. Initial orders include: EKG
--- NOTE | 2019-02-15 21:04 | Emergency Department Report ---
ED Syncope HPI - General Chief Complaint: Syncope Stated Complaint: SYNCOPE Time Seen by Provider: 02/15/19 17:07 - History of Present Illness Initial Comments: 28-year-old obese female with a known past medical history schizophrenia, bipolar disorder, violent autism presents to emergency department with her mom reports a possible syncopal episode while walking from the store today. Mother states she was walking on a sidewalk around 3:00 head begin to say and she and her hands began to shake for a few moments. States that she lowered her to the ground. She reports no head trauma and called EMS to bring him to the emergency department. There was no loss of bowel or bladder. No tone. She denies any illicit drug use or known preceding symptoms. States that she is now taking lithium for the last month in conjunction with Zyprexa was just increased from 15 mg to 20. Loss of Consciousness: unsure Current Symptoms: back to normal - Related Data Allergies/Adverse Reactions: Allergies No Known Allergies Allergy (Verified 08/27/18 10:27) Home Medications: Ambulatory Orders Benztropine [Cogentin] 0.5 mg PO BID #30 tablet 11/05/18 Divalproex ER [Depakote ER] 500 mg PO BID #60 tablet 11/05/18 fluPHENAZine HCl [Prolixin] 15 mg PO BID #60 tablet 11/05/18 hydrOXYzine PAMOATE [Vistaril] 25 mg PO TID PRN #60 capsule 11/05/18 Famotidine [Pepcid] 40 mg PO QHS #10 tablet 02/08/19 ED Review of Systems ROS: Stated complaint: SYNCOPE Other details as noted in HPI Comment: All other systems reviewed and negative ED Past Medical Hx - Past Medical History Previous Medical History?: Yes Hx Psychiatric Treatment: Yes (schizophrenia, Mood disorder, Bipolar, Violent) Additional medical history: autism, obesity - Surgical History Past Surgical History?: No - Social History Smoking Status: Never Smoker Substance Use Type: None - Medications Home Medications: Home Medications Medication Instructions Recorded Confirmed Last Taken Type Benztropine [Cogentin] 0.5 mg PO BID #30 tablet 11/05/18 Unknown Rx Divalproex ER [Depakote ER] 500 mg PO BID #60 tablet 11/05/18 Unknown Rx fluPHENAZine HCl [Prolixin] 15 mg PO BID #60 tablet 11/05/18 Unknown Rx hydrOXYzine PAMOATE [Vistaril] 25 mg PO TID PRN #60 capsule 11/05/18 Unknown Rx Famotidine [Pepcid] 40 mg PO QHS #10 tablet 02/08/19 Unknown Rx ED Physical Exam - General Limitations: Other General appearance: alert, in no apparent distress - Head Head exam: Present: atraumatic, normocephalic - Eye Eye exam: Present: normal appearance - ENT ENT exam: Present: mucous membranes moist - Neck Neck exam: Present: normal inspection - Respiratory Respiratory exam: Present: normal lung sounds bilaterally. Absent: respiratory distress - Cardiovascular Cardiovascular Exam: Present: regular rate, normal rhythm. Absent: systolic murmur, diastolic murmur, rubs, gallop - GI/Abdominal GI/Abdominal exam: Present: soft, normal bowel sounds - Extremities Exam Extremities exam: Present: normal inspection - Back Exam Back exam: Present: normal inspection - Neurological Exam Neurological exam: Present: alert, CN II-XII intact, normal gait - Psychiatric Psychiatric exam: Present: normal affect, normal mood. Absent: depressed, agitated, anxious, homicidal ideation, suicidal ideation - Skin Skin exam: Present: warm, dry, intact, normal color. Absent: rash ED Course Vital Signs 02/15/19 17:08 Temperature 99 F Pulse Rate 92 H Respiratory 18 Rate Blood Pressure 118/68 O2 Sat by Pulse 99 Oximetry ED Medical Decision Making - Lab Data Result diagrams: 02/15/19 21:16 02/15/19 21:16 - Medical Decision Making 20-year-old [place] female with a known history of mental health disorder with suspected syncope this afternoon. She's been started on lithium levels were found to be normal today. CT scan of the head did not reveal reveal any acute processes and her laboratory data was normal as well. She seems to be behaving at her baseline today showing no signs of any seizure activity or and the presyncope.. Critical care attestation.: If time is entered above; I have spent that time in minutes in the direct care of this critically ill patient, excluding procedure time. ED Disposition Clinical Impression: Pre-syncope Disposition: DC-01 TO HOME OR SELFCARE Is pt being admited?: No Does the pt Need Aspirin: No Condition: Stable Instructions: Lightheadedness (ED), Near Syncope (ED) Additional Instructions: Please be sure to follow up to primary care doctor in 24-48 hours for reevaluation of her medications and the current problem list. Please refrain from excessive standing, increase activity and the medication changes or adjustments until you follow up [facility]Primary Care Provider[facility] - 3-5 Days
[2019-02-15 21:35] LABS: Basophils # (Auto) 0.1 K/mm3 (0.0-0.1); Basophils % (Auto) 0.6 % (0.0-1.8); Eosinophils # (Auto) 0.1 K/mm3 (0.0-0.4); Eosinophils % (Auto) 1.6 % (0.0-4.3); Hematocrit 35.5 % (30.3-42.9); Hemoglobin 11.7 gm/dl (10.1-14.3); Lymphocytes # (Auto) 2.8 K/mm3 (1.2-5.4); Lymphocytes % (Auto) 32.5 % (13.4-35.0); Mean Corpuscular HGB Conc 33 % (30-34); Mean Corpuscular Volume 82 fl (79-97); Monocytes # (Auto) 0.6 K/mm3 (0.0-0.8); Platelet Count 267 K/mm3 (140-440); Red Blood Count 4.34 M/mm3 (3.65-5.03); Red Cell Distribution Width 15.2 % (13.2-15.2)
--- NOTE | 2019-02-15 22:06 | Cat Scan Report ---
CT head/brain wo con INDICATION: Syncope. TECHNIQUE: Routine CT head without contrast. All CT scans at this location are performed using CT dos e reduction for ALARA by means of automated exposure control. COMPARISON: Head CT on 05/12/2014 FINDINGS: BRAIN / INTRACRANIAL CONTENTS: No acute hemorrhage, mass effect, midline shift, or hydrocephalus. No appreciable acute large territorial or lacunar infarct. No chronic infarct or focal atrophy. Normal b rain volume and ventricular/sulcal size for age. ORBITS: No significant abnormality of visualized orbits. SINUSES / MASTOIDS: No significant abnormality of visualized sinuses and mastoid air cells. ADDITIONAL FINDINGS: None. IMPRESSION: 1. Negative head CT. Signer Name: Scott Singh MD Signed: 02/15/2019 10:01 PM Workstation Name: [id number]
[2019-02-15 22:11] LABS: Alanine Aminotransferase 15 units/L (7-56); BUN/Creatinine Ratio 11; Blood Urea Nitrogen 9 mg/dL (7-17); Calcium 8.7 mg/dL (8.4-10.2); Hemolysis Index 14
== END 2019-02-15 23:20 | disposition home or self-care (01) ==
LOC: ED 16:17
DX: R55 Syncope and collapse (principal); F31.9 Bipolar disorder, unspecified; F20.9 Schizophrenia, unspecified; Z79.899 Other long term (current) drug therapy; E66.9 Obesity, unspecified; Z68.41 Body mass index [BMI] 40.0-44.9, adult
CPT/HCPCS: 36415; 70450; 80053; 80178; 82550; 84484; 85025; 93005; 93010; 99284

== ENCOUNTER 2019-02-17 14:33 | Emergency (ER) | payer MEDICAID ==
[2019-02-17 15:03] LABS: Basophils % (Auto) 0.5 % (0.0-1.8); Eosinophils # (Auto) 0.1 K/mm3 (0.0-0.4); Eosinophils % (Auto) 1.7 % (0.0-4.3); Hematocrit 33.7 % (30.3-42.9); Hemoglobin 11.1 gm/dl (10.1-14.3); Lymphocytes # (Auto) 1.9 K/mm3 (1.2-5.4); Lymphocytes % (Auto) 31.2 % (13.4-35.0); Mean Corpuscular HGB Conc 33 % (30-34); Mean Corpuscular Volume 81 fl (79-97); Monocytes # (Auto) 0.4 K/mm3 (0.0-0.8); Monocytes % (Auto) 5.7 % (0.0-7.3); Platelet Count 262 K/mm3 (140-440); Red Blood Count 4.14 M/mm3 (3.65-5.03); Red Cell Distribution Width 15.2 % (13.2-15.2)
[2019-02-17 15:22] LABS: Bacteria,Urine 1+ /HPF (Negative); Bilirubin,Urine NEG (Negative); Blood,Urine MOD (Negative); Color,Urine Straw (Yellow); Protein,Urine <15 mg/dL mg/dL (Negative); Urobilinogen,Urine < 2.0 mg/dL (<2.0)
--- NOTE | 2019-02-17 15:23 | Emergency Department Report ---
<ZEINA OTT A - Last Filed: 02/17/19 16:43> ED Psych HPI - General Chief Complaint: Psych Stated Complaint: SI Time Seen by Provider: 02/17/19 15:21 Source: EMS Mode of arrival: Ambulatory - History of Present Illness Initial Comments: Patient is a 28-year-old female who is brought to the ER by her family today for thoughts of hurting herself. The patient has autism, schizophrenia and bipolar. Patient denies any SI. She denies any HI. Patient states she is on medications but cannot tell me the name. Given the patient's autism I don't think the patient is able to communicate this information to me. Patient is obese. She is rocking in the chair asking to go to [facility]. I do not think that the patient actually has as I think that this is more of the family's lack of ability to provide care for her. Apparently there are other children in the home with autism. PMH BIPOLAR/SCHIZO AUTISM RX PT CAN NOT TELL ME FAMILY DROPPED HER OFF AND LEFT History of same: Yes Context: other (? support structure at home) Associated Symptoms: denies other symptoms Treatments Prior to Arrival: none - Related Data Home Medications Medication Instructions Recorded Confirmed Last Taken Excel Carbonate [Excel 450 mg PO QHS 02/17/19 02/17/19 02/16/19 Carbonate ER] OLANZapine [Zyprexa Zydis] 20 mg PO QDAY 02/17/19 02/17/19 02/16/19 OLANzapine [ZyPREXA] 5 mg PO QDAY 02/17/19 02/17/19 02/16/19 Allergies Allergy/AdvReac Type Severity Reaction Status Date / Time No Known Allergies Allergy Verified 08/27/18 10:27 ED Review of Systems Comment: All other systems reviewed and negative ED Past Medical Hx - Past Medical History Previous Medical History?: Yes Hx Psychiatric Treatment: Yes (schizophrenia, Mood disorder, Bipolar, Violent) Additional medical history: autism, obesity - Surgical History Past Surgical History?: No - Family History Family history: no significant - Social History Smoking Status: Never Smoker Substance Use Type: None - Medications Home Medications: Home Medications Medication Instructions Recorded Confirmed Last Taken Type Excel Carbonate [Excel 450 mg PO QHS 02/17/19 02/17/19 02/16/19 History Carbonate ER] OLANZapine [Zyprexa Zydis] 20 mg PO QDAY 02/17/19 02/17/19 02/16/19 History OLANzapine [ZyPREXA] 5 mg PO QDAY 02/17/19 02/17/19 02/16/19 History ED Physical Exam - General Limitations: No Limitations General appearance: alert, anxious, other (rocking in chair) - Head Head exam: Present: normocephalic - Eye Eye exam: Present: PERRL - ENT ENT exam: Present: mucous membranes moist - Neck Neck exam: Present: normal inspection - Respiratory Respiratory exam: Present: normal lung sounds bilaterally - Cardiovascular Cardiovascular Exam: Present: regular rate - GI/Abdominal GI/Abdominal exam: Present: soft, normal bowel sounds - Rectal Rectal exam: Present: deferred - Extremities Exam Extremities exam: Present: normal inspection - Back Exam Back exam: Present: normal inspection - Neurological Exam Neurological exam: Present: alert, normal gait - Psychiatric Psychiatric exam: Present: anxious, flat affect, other (autistic) - Skin Skin exam: Present: warm, dry ED Medical Decision Making - Lab Data Result diagrams: 02/17/19 14:49 02/17/19 14:49 - Medical Decision Making Labs 02/17/19 02/17/19 02/17/19 14:49 14:49 Unknown WBC 6.1 RBC 4.14 Hgb 11.1 Hct 33.7 MCV 81 MCH 27 L MCHC 33 RDW 15.2 Plt Count 262 Lymph % (Auto) 31.2 Hunt % (Auto) 5.7 Eos % (Auto) 1.7 Baso % (Auto) 0.5 Lymph # 1.9 Hunt # 0.4 Eos # 0.1 Baso # 0.0 Seg Neutrophils % 60.9 Seg Neutrophils # 3.7 Sodium 138 Potassium 3.8 Chloride 106.9 Carbon Dioxide 19 L Anion Gap 16 BUN 9 Creatinine 0.8 Estimated GFR > 60 BUN/Creatinine Ratio 11 Glucose 92 Calcium 8.9 Urine Color Straw Urine Turbidity Clear Urine pH 6.0 Ur Specific [place] 1.005 Urine Protein <15 mg/dl Urine Glucose (UA) Neg Urine Ketones Neg Urine Blood Mod Urine Nitrite Neg Urine Bilirubin Neg Urine Urobilinogen < 2.0 Ur Leukocyte Esterase Neg Urine WBC (Auto) 1.0 Urine RBC (Auto) 2.0 U Epithel Cells (Auto) 1.0 Urine Bacteria (Auto) 1+ Urine Opiates Screen Urine Methadone Screen Ur Barbiturates Screen Ur Phencyclidine Scrn Ur Amphetamines Screen U Benzodiazepines Scrn Urine Cocaine Screen U Marijuana (THC) Screen 02/17/19 Unknown WBC RBC Hgb Hct MCV MCH MCHC RDW Plt Count Lymph % (Auto) [place] % (Auto) Eos % (Auto) Baso % (Auto) Lymph # [place] # Eos # Baso # Seg Neutrophils % Seg Neutrophils # Sodium Potassium Chloride Carbon Dioxide Anion Gap BUN Creatinine Estimated GFR BUN/Creatinine Ratio Glucose Calcium Urine Color Urine Turbidity Urine pH Ur Specific [place] Urine Protein Urine Glucose (UA) Urine Ketones Urine Blood Urine Nitrite Urine Bilirubin Urine Urobilinogen Ur Leukocyte Esterase Urine WBC (Auto) Urine RBC (Auto) U Epithel Cells (Auto) Urine Bacteria (Auto) Urine Opiates Screen Presumptive negative Urine Methadone Screen Presumptive negative Ur Barbiturates Screen Presumptive negative Ur Phencyclidine Scrn Presumptive negative Ur Amphetamines Screen Presumptive negative U Benzodiazepines Scrn Presumptive negative Urine Cocaine Screen Presumptive negative U Marijuana (THC) Screen Presumptive negative CLEARED MEDICALLY PENDING MHE EVAL FOR ? PLACEMENT MAY NEED CASE MANAGEMENT FOR PLACEMENT ISSUES GIVEN FAMILY MAY NOT BE ABLE TO CARE FOR PT . 1630 MHE HAS BEEN COMPLETED PT IS PENDING AN EVAL BY CASE MANAGEMENT AND THEN DISPO - Differential Diagnosis autism/schizo/bipolar ED Disposition Clinical Impression: Behavior concern in adult, Autism Disposition: DC-01 TO HOME OR SELFCARE Is pt being admited?: No Does the pt Need Aspirin: No Condition: Stable Referrals: DANIELLE SHELDON MD [Primary Care Provider] - 3-5 Days <MARYANN BEATTY - Last Filed: 02/18/19 11:57> ED Review of Systems ROS: Stated complaint: SI Other details as noted in HPI ED Course Vital Signs 02/17/19 02/17/19 02/17/19 14:44 19:27 19:39 Temperature 98.8 F 98.4 F Pulse Rate 96 H 92 H Respiratory 18 18 18 Rate Blood Pressure 102/66 124/63 [Right] O2 Sat by Pulse 97 99 Oximetry 02/18/19 07:00 Temperature 98.4 F Pulse Rate 77 Respiratory 18 Rate Blood Pressure 108/71 [Right] O2 Sat by Pulse 100 Oximetry ED Medical Decision Making - Lab Data Result diagrams: 02/17/19 14:49 02/17/19 14:49 - Medical Decision Making Patient was seen by case management and has been deemed safe to return back to home. Patient is no longer having a behavioral disturbances. Critical care attestation.: If time is entered above; I have spent that time in minutes in the direct care of this critically ill patient, excluding procedure time. ED Disposition Is pt being admited?: No Does the pt Need Aspirin: No Time of Disposition: 11:56
[2019-02-17 15:28] LABS: BUN/Creatinine Ratio 11; Blood Urea Nitrogen 9 mg/dL (7-17); Calcium 8.9 mg/dL (8.4-10.2); Hemolysis Index 0
[2019-02-17 15:34] LABS: Amphetamine Screen,Urine PRESUMPTIVE NEGATIVE; Benzodiazepines Screen,Urine PRESUMPTIVE NEGATIVE; Cannabinoid Screen,Urine PRESUMPTIVE NEGATIVE; Cocaine Screen,Urine PRESUMPTIVE NEGATIVE; Methadone Screen,Urine PRESUMPTIVE NEGATIVE; Opiate Screen,Urine PRESUMPTIVE NEGATIVE
[2019-02-17] MEDS ORDERED: ACETAMINOPHEN 325 MG TAB PO PRN (15:53)
[2019-02-17 16:05] LABS: Alanine Aminotransferase 14 units/L (7-56); Albumin 4.2 g/dL (3.9-5)
[2019-02-17 16:08] LABS: Bilirubin,Direct < 0.2 mg/dL (0-0.2)
--- NOTE | 2019-02-18 09:28 | Consultation ---
History of Present Illness - Reason for Consult Consult date: 02/18/19 Reason for consult: Mental Health Evaluation Requesting physician: ZEINA OTT - Chief Complaint Chief complaint: "I had an outburst" - History of Present Psychiatric Illness 28-year-old AA female who presented to the ER for thoughts of hurting herself. The patient has a hx of autism per the record. Today the patient was calm and during the assessment. She stated that she had an outburst yesterday at her neighbors house. That's all the information the patient was able to give. Per collateral information from her mother Ms Beatriz Johnson at [phone], she confirmed that the patient did have an outburst, but denies that the patient tried to harm herself. She stated that she wanted her daughter evaluated, so she was brought to the ER. She stated that the patient is seen at [facility] for outpatient psy services. She stated that her daughter is complaint with her medication. Per the record, no behavioral disturbances overnight by the patient. The patient denies SI/HI's. Medications and Allergies Allergies Allergy/AdvReac Type Severity Reaction Status Date / Time No Known Allergies Allergy Verified 08/27/18 10:27 Home Medications Medication Instructions Recorded Confirmed Last Taken Type Achille Carbonate [Achille 450 mg PO QHS 02/17/19 02/17/19 02/16/19 History Carbonate ER] OLANZapine [Zyprexa Zydis] 20 mg PO QDAY 02/17/19 02/17/19 02/16/19 History OLANzapine [ZyPREXA] 5 mg PO QDAY 02/17/19 02/17/19 02/16/19 History Active Meds: Active Medications Acetaminophen (Tylenol) 650 mg PO Q4HR PRN PRN Reason: Pain MILD(1-3)/Fever >100.5/SOL Past psychiatric history - Past Medical History Past Medical History: other (Unabel to obtain ) Past Surgical History: Other (Unable to obtain ) - past Psychiatric treatment and history psychiatric treatment history: Unable to obtain a psy hx and fam psy hx. - Social History Social history: lives with family Mental Status Exam - Vital signs Last Vital Signs Temp 98.4 F 02/18/19 07:00 Pulse 77 02/18/19 07:00 Resp 18 02/18/19 07:00 BP 108/71 02/18/19 07:00 Pulse Ox 100 02/18/19 07:00 - Exam Narrative exam: MSE: Appearance: calm Behavior: regular eye contact Speech: regular rate and tone Mood: "okay" Affect: congruent to mood Thought Process: unable to assess Thought Content: denies SI/HI's Motor Activity: sitting up in bed Cognition: A/O x3 Insight: limited Judgment: unable to assess Results Result Diagrams: 02/17/19 14:49 02/17/19 14:49 Abnormal lab results 02/17/19 02/17/19 02/17/19 Range/Units 14:49 14:49 14:49 MCH (28-32) pg Carbon Dioxide 19 L (22-30) mmol/L Salicylates < 0.3 L (2.8-20.0) mg/dL Acetaminophen < 5.0 L (10.0-30.0) ug/mL Valproic Acid (50-100) ug/mL 02/17/19 02/17/19 Range/Units 14:49 14:49 MCH 27 L (28-32) pg Carbon Dioxide (22-30) mmol/L Salicylates (2.8-20.0) mg/dL Acetaminophen (10.0-30.0) ug/mL Valproic Acid < 2.8 L (50-100) ug/mL All other labs normal. Assessment and Plan Assessment and plan: Impression: Unspecified Intellectual Disability. Today the patient was calm during the assessment. UDS is negative. Recommendation/Plan: The patient seen at [facility] for [facility]. Per the patient's mother MS Beatriz Johnson, she do not heed any prescriptions. Psy sign off. Dispo: The patient can follow up with [facility] for outpatient psy services. Will staff with Dr Nelly Mobley.
[2019-02-18 16:39] VITALS: BP 119/86
== END 2019-02-18 21:13 | disposition home or self-care (01) ==
LOC: ED 14:33
DX: F31.9 Bipolar disorder, unspecified (principal); F20.9 Schizophrenia, unspecified; Z79.899 Other long term (current) drug therapy
CPT/HCPCS: 36415; 80048; 80076; 80164; 80307; 80320; 81001; 85025; 99284; G0480

== ENCOUNTER 2019-03-23 20:26 | Emergency (ER) | payer MEDICAID ==
--- NOTE | 2019-03-23 20:58 | Emergency Department Report ---
HPI - General Chief Complaint: Psych Time Seen by Provider: 03/23/19 20:45 - HPI HPI: Room 16 The patient is a 29-year-old female presenting with a chief complaint of "acting differently." EMS reports the patient was transported to the ED by request of the patient's mother secondary to the patient "acting differently" after being changed to different psychiatric medication. The patient states she came to the emergency department because her "mind is awful." She feels dizzy she denies suicidal or homicidal ideation. Patient denies visual or auditory hallucinations. Patient states she's been compliant with all of her medication. ED Past Medical Hx - Past Medical History Previous Medical History?: Yes Hx Psychiatric Treatment: Yes (schizophrenia, Mood disorder, Bipolar, Violent) Additional medical history: autism, obesity - Surgical History Past Surgical History?: No - Family History Family history: no significant - Social History Smoking Status: Never Smoker Substance Use Type: None - Medications Home Medications: Home Medications Medication Instructions Recorded Confirmed Last Taken Type FLUoxetine HCL [PROzac] 40 mg PO QDAY 03/23/19 03/23/19 Unknown History Haloperidol [Haldol] 10 mg PO BID 03/23/19 03/23/19 Unknown History Valproic Acid [DepaKENE] 250 mg PO BID 03/23/19 03/23/19 Unknown History levETIRAcetam [Keppra TAB] 500 mg PO BID 03/23/19 03/23/19 Unknown History ED Review of Systems ROS: Stated complaint: REACTION TO MEDICATION Other details as noted in HPI Constitutional: no symptoms reported Eyes: denies: eye pain ENT: denies: throat pain Respiratory: no symptoms reported Cardiovascular: denies: chest pain Endocrine: no symptoms reported Gastrointestinal: denies: abdominal pain Genitourinary: denies: dysuria Musculoskeletal: denies: back pain Neurological: denies: headache Psychiatric: denies: auditory hallucinations, visual hallucinations, homicidal thoughts, suicidal thoughts Physical Exam - Physical Exam Vital Signs: Vital Signs 03/23/19 20:44 Temperature 98.2 F Pulse Rate 73 Respiratory 20 Rate Blood Pressure 105/66 O2 Sat by Pulse 97 Oximetry Physical Exam: GENERAL: The patient is well-developed well-nourished female sitting in chair not appearing to be in acute distress HEENT: Normocephalic. Atraumatic. Extraocular motions are intact. Patient has moist mucous membranes. NECK: Supple. I can midline CHEST/LUNGS: Clear to auscultation. There is no respiratory distress noted. HEART/CARDIOVASCULAR: Regular. There is no tachycardia. There is no gallop rub or murmur. ABDOMEN: Abdomen is soft, nontender. Patient has normal bowel sounds. There is no abdominal distention. SKIN: There is no rash. There is no edema. There is no diaphoresis. NEURO: The patient is awake, alert, and oriented. The patient is cooperative. The patient has normal speech and gait. MUSCULOSKELETAL: There is no evidence of acute injury. ED Course Vital Signs 03/23/19 20:44 Temperature 98.2 F Pulse Rate 73 Respiratory 20 Rate Blood Pressure 105/66 O2 Sat by Pulse 97 Oximetry ED Medical Decision Making - Lab Data Result diagrams: 03/23/19 08:58 03/23/19 21:03 Laboratory Tests 03/23/19 03/23/19 03/23/19 08:58 21:03 21:03 WBC 7.5 RBC 4.40 Hgb 11.5 Hct 35.3 MCV 80 MCH 26 L MCHC 33 RDW 14.4 Plt Count 279 Lymph % (Auto) 43.0 H Long % (Auto) 7.2 Eos % (Auto) 2.2 Baso % (Auto) 0.7 Lymph # 3.2 Long # 0.5 Eos # 0.2 Baso # 0.1 Seg Neutrophils % 46.9 Seg Neutrophils # 3.5 PT 13.3 INR 1.02 Sodium 135 L Potassium 4.1 Chloride 102.6 Carbon Dioxide 20 L Anion Gap 17 BUN 8 Creatinine 0.8 Estimated GFR > 60 BUN/Creatinine Ratio 10 Glucose 90 Calcium 8.9 Total Bilirubin < 0.20 AST 19 ALT 20 Alkaline Phosphatase 142 H Total Protein 8.1 Albumin 4.1 Albumin/Globulin Ratio 1.0 HCG, Qual Urine Color Urine Turbidity Urine pH Ur Specific [place] Urine Protein Urine Glucose (UA) Urine Ketones Urine Blood Urine Nitrite Urine Bilirubin Urine Urobilinogen Ur Leukocyte Esterase Urine WBC (Auto) Urine RBC (Auto) Salicylates Urine Opiates Screen Urine Methadone Screen Acetaminophen Ur Barbiturates Screen Valproic Acid Ur Phencyclidine Scrn Ur Amphetamines Screen U Benzodiazepines Scrn [place] Urine Cocaine Screen U Marijuana (THC) Screen Drugs of Abuse Note Plasma/Serum Alcohol 03/23/19 03/23/19 03/23/19 21:03 21:03 21:03 WBC RBC Hgb Hct MCV MCH MCHC RDW Plt Count Lymph % (Auto) Long % (Auto) Eos % (Auto) Baso % (Auto) Lymph # Long # Eos # Baso # Seg Neutrophils % Seg Neutrophils # PT INR Sodium Potassium Chloride Carbon Dioxide Anion Gap BUN Creatinine Estimated GFR BUN/Creatinine Ratio Glucose Calcium Total Bilirubin AST ALT Alkaline Phosphatase Total Protein Albumin Albumin/Globulin Ratio HCG, Qual Urine Color Urine Turbidity Urine pH Ur Specific [place] Urine Protein Urine Glucose (UA) Urine Ketones Urine Blood Urine Nitrite Urine Bilirubin Urine Urobilinogen Ur Leukocyte Esterase Urine WBC (Auto) Urine RBC (Auto) Salicylates < 0.3 L Urine Opiates Screen Urine Methadone Screen Acetaminophen < 5.0 L Ur Barbiturates Screen Valproic Acid 65.8 Ur Phencyclidine Scrn Ur Amphetamines Screen U Benzodiazepines Scrn [place] 0.1 Urine Cocaine Screen U Marijuana (THC) Screen Drugs of Abuse Note Plasma/Serum Alcohol < 0.01 03/23/19 03/23/19 03/23/19 21:03 Unknown Unknown WBC RBC Hgb Hct MCV MCH MCHC RDW Plt Count Lymph % (Auto) Long % (Auto) Eos % (Auto) Baso % (Auto) Lymph # Long # Eos # Baso # Seg Neutrophils % Seg Neutrophils # PT INR Sodium Potassium Chloride Carbon Dioxide Anion Gap BUN Creatinine Estimated GFR BUN/Creatinine Ratio Glucose Calcium Total Bilirubin AST ALT Alkaline Phosphatase Total Protein Albumin Albumin/Globulin Ratio HCG, Qual Negative Urine Color Colorless Urine Turbidity Clear Urine pH 6.0 Ur Specific [place] 1.001 L Urine Protein <15 mg/dl Urine Glucose (UA) Neg Urine Ketones Neg Urine Blood Neg Urine Nitrite Neg Urine Bilirubin Neg Urine Urobilinogen < 2.0 Ur Leukocyte Esterase Neg Urine WBC (Auto) < 1.0 Urine RBC (Auto) < 1.0 Salicylates Urine Opiates Screen Presumptive negative Urine Methadone Screen Presumptive negative Acetaminophen Ur Barbiturates Screen Presumptive negative Valproic Acid Ur Phencyclidine Scrn Presumptive negative Ur Amphetamines Screen Presumptive negative U Benzodiazepines Scrn Presumptive negative [place] Urine Cocaine Screen Presumptive negative U Marijuana (THC) Screen Presumptive negative Drugs of Abuse Note Disclamer Plasma/Serum Alcohol - EKG Data -: EKG Interpreted by Fl EKG shows normal: sinus rhythm Rate: normal - EKG Data When compared to previous EKG there are: previous EKG unavailable Interpretation: normal EKG - Differential Diagnosis Depakote toxicity, schizophrenia, electrolyte abnormality Critical care attestation.: If time is entered above; I have spent that time in minutes in the direct care of this critically ill patient, excluding procedure time. ED Disposition Clinical Impression: Schizophrenia Disposition: DC-01 TO HOME OR SELFCARE Is pt being admited?: No Does the pt Need Aspirin: No Condition: Stable Additional Instructions: Return to the emergency department should you develop worsening symptoms, inability to tolerate food or liquids, high fever or any other concerns Referrals: [facility] [Outside] - 3-5 Days Time of Disposition: 22:47
[2019-03-23 21:16] LABS: Bilirubin,Urine NEG (Negative); Blood,Urine NEG (Negative); Color,Urine Colorless (Yellow); Protein,Urine <15 mg/dL mg/dL (Negative); RBC,Urine < 1.0 /HPF (0.0-6.0); Urobilinogen,Urine < 2.0 mg/dL (<2.0)
[2019-03-23 21:25] LABS: Basophils # (Auto) 0.1 K/mm3 (0.0-0.1); Basophils % (Auto) 0.7 % (0.0-1.8); Eosinophils # (Auto) 0.2 K/mm3 (0.0-0.4); Eosinophils % (Auto) 2.2 % (0.0-4.3); Hematocrit 35.3 % (30.3-42.9); Hemoglobin 11.5 gm/dl (10.1-14.3); Lymphocytes # (Auto) 3.2 K/mm3 (1.2-5.4); Mean Corpuscular HGB Conc 33 % (30-34); Mean Corpuscular Volume 80 fl (79-97); Monocytes # (Auto) 0.5 K/mm3 (0.0-0.8); Monocytes % (Auto) 7.2 % (0.0-7.3); Platelet Count 279 K/mm3 (140-440); Red Cell Distribution Width 14.4 % (13.2-15.2)
[2019-03-23 21:28] LABS: INR 1.02 (0.87-1.13)
[2019-03-23 21:30] LABS: Amphetamine Screen,Urine PRESUMPTIVE NEGATIVE; Benzodiazepines Screen,Urine PRESUMPTIVE NEGATIVE; Cannabinoid Screen,Urine PRESUMPTIVE NEGATIVE; Cocaine Screen,Urine PRESUMPTIVE NEGATIVE; Methadone Screen,Urine PRESUMPTIVE NEGATIVE; Opiate Screen,Urine PRESUMPTIVE NEGATIVE
[2019-03-23 21:36] LABS: WBC,Urine < 1.0 /HPF (0.0-6.0)
[2019-03-23 21:43] LABS: Alanine Aminotransferase 20 units/L (7-56); Albumin 4.1 g/dL (3.9-5); BUN/Creatinine Ratio 10; Blood Urea Nitrogen 8 mg/dL (7-17); Calcium 8.9 mg/dL (8.4-10.2); Hemolysis Index 5
[2019-03-24 06:57] VITALS: BP 127/84
== END 2019-03-24 06:58 | disposition home or self-care (01) ==
LOC: ED 20:26
DX: F20.9 Schizophrenia, unspecified (principal); F31.9 Bipolar disorder, unspecified; F84.0 Autistic disorder; Z79.899 Other long term (current) drug therapy
CPT/HCPCS: 36415; 80053; 80164; 80178; 80307; 80320; 81001; 84703; 85025; 85610; 93005; 93010; 99284; G0480

== ENCOUNTER 2019-03-24 17:08 | Emergency (ER) | payer MEDICAID ==
--- NOTE | 2019-03-24 19:37 | Emergency Department Report ---
HPI - General Chief Complaint: Urogenital-Female Time Seen by Provider: 03/24/19 19:06 - HPI HPI: 29-year-old -[place]une[place] female presents to the emergency department with the claim that she has put a nail inside of her vagina this morning. She says i t is the type of nail that is in the wall. She cannot give an appropriate answer as to why she did this. However she does have a past medical history of schizophrenia, bipolar disorder, mood disorder and autism. ED Past Medical Hx - Past Medical History Previous Medical History?: Yes Hx Psychiatric Treatment: Yes (schizophrenia, Mood disorder, Bipolar, Violent) Additional medical history: autism, obesity - Social History Smoking Status: Never Smoker Substance Use Type: None - Medications Home Medications: Home Medications Medication Instructions Recorded Confirmed Last Taken Type FLUoxetine HCL [PROzac] 40 mg PO QDAY 03/23/19 03/23/19 Unknown History Haloperidol [Haldol] 10 mg PO BID 03/23/19 03/23/19 Unknown History Valproic Acid [DepaKENE] 250 mg PO BID 03/23/19 03/23/19 Unknown History levETIRAcetam [Keppra TAB] 500 mg PO BID 03/23/19 03/23/19 Unknown History ED Review of Systems ROS: Stated complaint: NAIL IN VAGINA Other details as noted in HPI Comment: Unobtainable due to pts medical conditions Physical Exam - Physical Exam Vital Signs: Vital Signs 03/24/19 03/24/19 17:20 18:38 Temperature 98.2 F 97.7 F Pulse Rate 83 70 Respiratory 20 Rate Blood Pressure 103/61 Blood Pressure 125/82 [Left] O2 Sat by Pulse 98 99 Oximetry Physical Exam: GENERAL: The patient is well-developed well-nourished. HENT: Normocephalic. Atraumatic. Patient has moist mucous membranes. EYES: Extraocular motions are intact. NECK: Supple. Trachea is midline. CHEST/LUNGS: Clear to auscultation. There is no respiratory distress noted. HEART/CARDIOVASCULAR: Regular. There is no tachycardia. There is no murmur. ABDOMEN: Abdomen is soft, nontender. Patient has normal bowel sounds. Obese habitus. SKIN: Skin is warm and dry. NEURO: The patient is awake and cooperative. Normal speech. MUSCULOSKELETAL: There is no tenderness or deformity. There is no limitation range of motion. There is no evidence of acute injury. PELVIC: There was a single thumbtack seen in the posterior vagina. The thumbtack had a plastic top and a metal needle that was facing caudally. No obvious vaginal lacerations. No discharge or bleeding. ED Course Vital Signs 03/24/19 03/24/19 17:20 18:38 Temperature 98.2 F 97.7 F Pulse Rate 83 70 Respiratory 20 Rate Blood Pressure 103/61 Blood Pressure 125/82 [Left] O2 Sat by Pulse 98 99 Oximetry - Reevaluation(s) Reevaluation #1: 03/24/19 20:45 The pelvic examination was done with nurse Medina at bedside to assist and as a safety council director. - Procedure Description Procedures done: Procedure: Foreign body removal vagina. The patient was placed on a pelvic bed and in the stirrups. The speculum was placed in the vagina and opened until the cervix was seen and just below this was the thumbtack. Forceps were used to remove the foreign body. There was no discharge. No obvious vaginal lesions or abrasions. No vaginal bleeding. The patient tolerated the procedure well. ED Medical Decision Making - Medical Decision Making This patient with a psychiatric history and autism presents after she placed a "nail" inside of her vagina. It turned out to be a thumbtack and I was able to get this out during a pelvic examination with some forceps. No obvious signs of any vaginal trauma. The patient confirms that there was only 1 thumbtack placed inside the vagina. We discussed that this is dangerous and should not be repeated. Pelvic x-ray does not show any signs of any further foreign body. Patient will be discharged home but has been given referrals for [facility] to follow-up. Critical Care Time: No Critical care attestation.: If time is entered above; I have spent that time in minutes in the direct care of this critically ill patient, excluding procedure time. ED Disposition Clinical Impression: Vaginal foreign body Qualifiers: Encounter type: initial encounter Qualified Code(s): T19.2XXA - Foreign body in vulva and vagina, initial encounter Disposition: - TO HOME OR SELFCARE Is pt being admited?: No Condition: Stable Instructions: Vaginal Foreign Body (ED) Additional Instructions: Please do not place any further thumb tacks, nails, or any foreign objects into your vagina. I am giving you a referral for a local [facility] service for outpatient follow-up. Please return to the emergency Department with any concerns or acute distress. Referrals: PRIMARY CAREMD [Primary Care Provider] - 2-3 Days [facility] [Provider Group] - 2-3 Days [facility] [Provider Group] - 2-3 Days Time of Disposition: 20:21
[2019-03-24 21:17] VITALS: BP 114/65
--- NOTE | 2019-03-24 21:22 | XRay Report ---
AP pelvis INDICATION: foreign body. Questionable nail in the vagina COMPARISON: None. IMPRESSION: No radiopaque foreign body identified. No acute osseous abnormality or malalignment. No significant DJD. Signer Name: Ye Varela MD Signed: 03/24/2019 9:17 PM Workstation Name: [id number]
== END 2019-03-24 21:15 | disposition home or self-care (01) ==
LOC: ED 17:08
DX: T19.2XXA Foreign body in vulva and vagina, initial encounter (principal); F20.9 Schizophrenia, unspecified; F31.9 Bipolar disorder, unspecified; F84.0 Autistic disorder; E66.9 Obesity, unspecified; Z68.42 Body mass index [BMI] 45.0-49.9, adult; Z79.899 Other long term (current) drug therapy; W45.0XXA Nail entering through skin, initial encounter; Y93.89 Activity, other specified; Y92.89 Other specified places as the place of occurrence of the external cause; Y99.8 Other external cause status
CPT/HCPCS: 72170; 99284

== ENCOUNTER 2019-04-02 14:47 | Emergency (ER) | payer MEDICAID ==
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
[2019-04-02 16:26] LABS: Basophils % (Auto) 0.7 % (0.0-1.8); Eosinophils # (Auto) 0.3 K/mm3 (0.0-0.4); Hematocrit 35.2 % (30.3-42.9); Hemoglobin 11.6 gm/dl (10.1-14.3); Lymphocytes # (Auto) 1.9 K/mm3 (1.2-5.4); Lymphocytes % (Auto) 35.6 % (13.4-35.0); Mean Corpuscular HGB Conc 33 % (30-34); Mean Corpuscular Volume 80 fl (79-97); Monocytes # (Auto) 0.5 K/mm3 (0.0-0.8); Monocytes % (Auto) 9.9 % (0.0-7.3); Platelet Count 235 K/mm3 (140-440); Red Blood Count 4.41 M/mm3 (3.65-5.03); Red Cell Distribution Width 14.7 % (13.2-15.2)
[2019-04-02 16:26] LABS: Bilirubin,Urine NEG (Negative); Blood,Urine NEG (Negative); Color,Urine Straw (Yellow); Protein,Urine <15 mg/dL mg/dL (Negative); Urobilinogen,Urine < 2.0 mg/dL (<2.0); WBC,Urine < 1.0 /HPF (0.0-6.0)
[2019-04-02 16:29] LABS: HCG Qualitative,Urine Negative (Negative)
[2019-04-02 16:34] LABS: Amphetamine Screen,Urine PRESUMPTIVE NEGATIVE; Benzodiazepines Screen,Urine PRESUMPTIVE NEGATIVE; Cannabinoid Screen,Urine PRESUMPTIVE NEGATIVE; Cocaine Screen,Urine PRESUMPTIVE NEGATIVE; Methadone Screen,Urine PRESUMPTIVE NEGATIVE; Opiate Screen,Urine PRESUMPTIVE NEGATIVE
[2019-04-02 16:41] LABS: Mucus,Urine FEW /HPF; RBC,Urine < 1.0 /HPF (0.0-6.0)
[2019-04-02 16:49] LABS: BUN/Creatinine Ratio 10; Blood Urea Nitrogen 9 mg/dL (7-17); Calcium 8.9 mg/dL (8.4-10.2); Hemolysis Index 6
[2019-04-03] MEDS: cloNIDine 0.1 MG TAB PO SCH ×2 (10:36→22:01)
[2019-04-03] MEDS: levETIRAcetam 500 MG TAB PO SCH ×2 (10:37→22:01)
[2019-04-03] MEDS: QUEtiapine 200 MG TAB PO SCH ×2 (10:37→22:01)
--- NOTE | 2019-04-03 21:10 | Consultation ---
History of Present Illness - Reason for Consult Consult date: 04/03/19 Reason for consult: psychiatric evaluation - Chief Complaint Chief complaint: mother wants her medications to be addressed - History of Present Psychiatric Illness 28-year-old AA female who presented to the ER. The patient has a hx developmental disability per the record. Today the patient was calm and during the assessment. She has recently been non compliant with medication. Per the record, no behavioral disturbances overnight by the patient. The patient denies SI/HI's. Past psychiatric history - Past Medical History Past Medical History: other (Unabel to obtain ) Past Surgical History: Other (Unable to obtain ) - past Psychiatric treatment and history psychiatric treatment history: Unable to obtain a psy hx and fam psy hx. - Social History Social history: lives with family Medications and Allergies Allergies Allergy/AdvReac Type Severity Reaction Status Date / Time No Known Allergies Allergy Verified 08/27/18 10:27 Home Medications Medication Instructions Recorded Confirmed Last Taken Type levETIRAcetam [Keppra TAB] 500 mg PO BID 03/23/19 04/02/19 1 Day Ago History ~04/01/19 QUEtiapine [SEROquel] 200 mg PO BID 04/02/19 04/02/19 1 Day Ago History ~04/01/19 cloNIDine [Catapres] 0.1 mg PO BID 04/02/19 04/03/19 1 Day Ago History ~04/01/19 Active Meds: Active Medications Clonidine HCl (Catapres) 0.1 mg PO BID [facility] Last Admin: 04/03/19 10:36 Dose: Not Given Documented by: Levetiracetam (Keppra) 500 mg PO BID [facility] Last Admin: 04/03/19 10:37 Dose: Not Given Documented by: Quetiapine Fumarate (Seroquel) 200 mg PO BID [facility] Last Admin: 04/03/19 10:37 Dose: Not Given Documented by: Mental Status Exam - Vital signs Last Vital Signs Temp 98.6 F 04/03/19 14:35 Pulse 80 04/03/19 14:35 Resp 18 04/03/19 14:35 BP 90/52 04/03/19 14:35 Pulse Ox 100 04/03/19 14:35 - Exam Orientation: place, person Affect: flat Mood: other (indifferent) Thought content: other (denies sI/HI) Thought Process: Tangential Perceptions: none Speech: other (loud) Concentration: unable to pay attention Motor activity: restless Level of consciousness: alert Memory: Intact Interaction: cooperative Results Result Diagrams: 04/02/19 16:15 04/02/19 16:15 All other labs normal. Assessment and Plan Assessment and plan: Assessment and plan: Impression: Unspecified developmental Disability. Today the patient was calm during the assessment. UDS is negative. Recommendation/Plan: no 1013 indicated continue home meds: clonidine seroquel kemarylura compliance encouraged Dispo: DD crisis to provide recommendations Will staff with Dr Nelly Mobley.
[2019-04-04] MEDS: levETIRAcetam 500 MG TAB PO SCH ×2 (11:00→22:53)
[2019-04-04] MEDS: QUEtiapine 200 MG TAB PO SCH ×2 (11:00→22:53)
[2019-04-04] MEDS: cloNIDine 0.1 MG TAB PO SCH ×2 (11:24→22:53)
[2019-04-05] MEDS: cloNIDine 0.1 MG TAB PO SCH (10:53)
[2019-04-05 10:54] VITALS: BP 138/59
[2019-04-05] MEDS: levETIRAcetam 500 MG TAB PO SCH (10:54)
[2019-04-05] MEDS: QUEtiapine 200 MG TAB PO SCH (10:54)
== END 2019-04-05 19:23 ==
LOC: EEVIPCON 14:47 → ED 14:47
DX: F84.0 Autistic disorder (principal); F20.9 Schizophrenia, unspecified; F31.9 Bipolar disorder, unspecified; E66.9 Obesity, unspecified; Z68.41 Body mass index [BMI] 40.0-44.9, adult; Z79.899 Other long term (current) drug therapy
CPT/HCPCS: 36415; 80048; 80164; 80307; 81001; 81025; 85025; 99284

== ENCOUNTER 2019-04-06 16:13 | Emergency (ER) | payer MEDICAID ==
[2019-04-06 16:58] VITALS: BP 106/72
[2019-04-06 17:23] LABS: Bilirubin,Urine NEG (Negative); Blood,Urine NEG (Negative); Color,Urine Yellow (Yellow); Mucus,Urine FEW /HPF; Protein,Urine <15 mg/dL mg/dL (Negative); Urobilinogen,Urine < 2.0 mg/dL (<2.0)
[2019-04-06 17:27] LABS: Amphetamine Screen,Urine PRESUMPTIVE NEGATIVE; Benzodiazepines Screen,Urine PRESUMPTIVE NEGATIVE; Cannabinoid Screen,Urine PRESUMPTIVE NEGATIVE; Cocaine Screen,Urine PRESUMPTIVE NEGATIVE; Methadone Screen,Urine PRESUMPTIVE NEGATIVE; Opiate Screen,Urine PRESUMPTIVE NEGATIVE
--- NOTE | 2019-04-06 17:36 | Emergency Department Report ---
ED General Adult HPI - General Chief complaint: Psych Stated complaint: MH EVAL Time Seen by Provider: 04/06/19 17:03 Source: patient Mode of arrival: Ambulatory Limitations: No Limitations - History of Present Illness Initial comments: Patient is a 29-year-old autistic female who was just released from our hospital after a several day stay in the emergency departmen last night. Patient is returned because she got into an argument with her mother about going to the grocery store. Patient stated she wanted to go the store and her mother wouldn't take her so she stormed out. Patient is arrived to our emergency department via EMS. The patient states she is calm and cooperative at this time and has no homicidal suicidal ideations. - Related Data Home Medications Medication Instructions Recorded Confirmed Last Taken levETIRAcetam [Keppra TAB] 500 mg PO BID 03/23/19 04/02/19 1 Day Ago ~04/01/19 QUEtiapine [SEROquel] 200 mg PO BID 04/02/19 04/02/19 1 Day Ago ~04/01/19 cloNIDine [Catapres] 0.1 mg PO BID 04/02/19 04/03/19 1 Day Ago ~04/01/19 Allergies Allergy/AdvReac Type Severity Reaction Status Date / Time No Known Allergies Allergy Verified 08/27/18 10:27 ED Review of Systems ROS: Stated complaint: MH EVAL Other details as noted in HPI Comment: All other systems reviewed and negative ED Past Medical Hx - Past Medical History Hx Psychiatric Treatment: Yes (schizophrenia, Mood disorder, Bipolar, Violent) Additional medical history: autism, obesity - Social History Smoking Status: Never Smoker Substance Use Type: None - Medications Home Medications: Home Medications Medication Instructions Recorded Confirmed Last Taken Type levETIRAcetam [Keppra TAB] 500 mg PO BID 03/23/19 04/02/19 1 Day Ago History ~04/01/19 QUEtiapine [SEROquel] 200 mg PO BID 04/02/19 04/02/19 1 Day Ago History ~04/01/19 cloNIDine [Catapres] 0.1 mg PO BID 04/02/19 04/03/19 1 Day Ago History ~04/01/19 ED Physical Exam - General Limitations: No Limitations General appearance: alert, in no apparent distress - Head Head exam: Present: atraumatic, normocephalic - Eye Eye exam: Present: normal appearance - ENT ENT exam: Present: mucous membranes moist - Neck Neck exam: Present: normal inspection - Respiratory Respiratory exam: Present: normal lung sounds bilaterally. Absent: respiratory distress - Cardiovascular Cardiovascular Exam: Present: regular rate, normal rhythm. Absent: systolic murmur, diastolic murmur, rubs, gallop - GI/Abdominal GI/Abdominal exam: Present: soft, normal bowel sounds - Extremities Exam Extremities exam: Present: normal inspection - Back Exam Back exam: Present: normal inspection - Neurological Exam Neurological exam: Present: alert, oriented X3 - Psychiatric Psychiatric exam: Present: normal affect, normal mood - Skin Skin exam: Present: warm, dry, intact, normal color. Absent: rash ED Course Vital Signs 04/06/19 16:52 Temperature 98.3 F Pulse Rate 84 Respiratory 18 Rate Blood Pressure 106/72 O2 Sat by Pulse 98 Oximetry ED Medical Decision Making - Medical Decision Making Patient's be discharged back to the custody of her mother. Listed drugs and found the patient's system. She is calm and cooperative. Critical care attestation.: If time is entered above; I have spent that time in minutes in the direct care of this critically ill patient, excluding procedure time. ED Disposition Clinical Impression: Mood disorder, Autism Disposition: DC-01 TO HOME OR SELFCARE Is pt being admited?: No Does the pt Need Aspirin: No Condition: Stable Time of Disposition: 17:36
== END 2019-04-06 19:00 | disposition home or self-care (01) ==
LOC: ED 16:13 → EEVIPCON 16:13 → ED 19:00
DX: F84.0 Autistic disorder (principal); F25.0 Schizoaffective disorder, bipolar type; E66.9 Obesity, unspecified; Z79.899 Other long term (current) drug therapy
CPT/HCPCS: 36415; 80048; 80307; 80320; 81001; 84703; 85025; G0480

== ENCOUNTER 2019-04-06 21:46 | Emergency (ER) | payer MEDICAID ==
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
[2019-04-06 23:51] LABS: Basophils # (Auto) 0.1 K/mm3 (0.0-0.1); Basophils % (Auto) 0.7 % (0.0-1.8); Eosinophils # (Auto) 0.2 K/mm3 (0.0-0.4); Eosinophils % (Auto) 2.3 % (0.0-4.3); Hematocrit 35.2 % (30.3-42.9); Hemoglobin 11.3 gm/dl (10.1-14.3); Lymphocytes # (Auto) 2.8 K/mm3 (1.2-5.4); Lymphocytes % (Auto) 36.9 % (13.4-35.0); Mean Corpuscular HGB Conc 32 % (30-34); Mean Corpuscular Volume 80 fl (79-97); Monocytes # (Auto) 0.5 K/mm3 (0.0-0.8); Monocytes % (Auto) 7.2 % (0.0-7.3); Platelet Count 239 K/mm3 (140-440); Red Blood Count 4.39 M/mm3 (3.65-5.03); Red Cell Distribution Width 14.8 % (13.2-15.2)
[2019-04-07 00:04] LABS: BUN/Creatinine Ratio 11; Blood Urea Nitrogen 10 mg/dL (7-17); Calcium 8.7 mg/dL (8.4-10.2); Hemolysis Index 3
[2019-04-07] MEDS ORDERED: POTASSIUM CHLORIDE ER 20 MEQ TAB PO ONE (01:37)
[2019-04-07 08:09] LABS: Bilirubin,Urine NEG (Negative); Blood,Urine NEG (Negative); Color,Urine Yellow (Yellow); Mucus,Urine FEW /HPF; Protein,Urine <15 mg/dL mg/dL (Negative); Urobilinogen,Urine < 2.0 mg/dL (<2.0)
[2019-04-07 08:24] LABS: Amphetamine Screen,Urine PRESUMPTIVE NEGATIVE; Benzodiazepines Screen,Urine PRESUMPTIVE NEGATIVE; Cannabinoid Screen,Urine PRESUMPTIVE NEGATIVE; Cocaine Screen,Urine PRESUMPTIVE NEGATIVE; Methadone Screen,Urine PRESUMPTIVE NEGATIVE; Opiate Screen,Urine PRESUMPTIVE NEGATIVE
[2019-04-07] MEDS ORDERED: QUEtiapine 200 MG TAB PO SCH (10:00)
--- NOTE | 2019-04-07 13:00 | Consultation ---
History of Present Illness - Reason for Consult Consult date: 04/07/19 Reason for consult: Mental Health Evaluation Requesting physician: PAUL CENTENO - Chief Complaint Chief complaint: "I am not suicidal" - History of Present Psychiatric Illness 29 y.o. AA female who presented to the ER for running away from home and SI's. This patient is known to me. Today the patient was calm and cooperative during the assessment. The patient was brought to the ER twice within 24 to 48 for a mental health eval. The patient has a hx of autism per the record. The patient stated that she got upset because she wanted to go to the store. She stated that she ran away because she felt like she should have been taken to the store. Per collateral information from the patient's mother and father, they stated that the patient have been running away when there's some type of disagreement in the home. The patient's family want her hospitalized on a 1013 and I the provider explain to them the criteria for 1013. The patient is seen at [facility] for autistic adult patients. The patient denies SI/HI's and AVH's. She denies being abuse when asked. She denies recreational drug use and alcohol consumption (etoh). Medications and Allergies Allergies Allergy/AdvReac Type Severity Reaction Status Date / Time No Known Allergies Allergy Verified 08/27/18 10:27 Home Medications Medication Instructions Recorded Confirmed Last Taken Type levETIRAcetam [Keppra TAB] 500 mg PO BID 03/23/19 04/07/19 1 Day Ago History ~04/01/19 QUEtiapine [SEROquel] 200 mg PO BID 04/02/19 04/07/19 1 Day Ago History ~04/01/19 cloNIDine [Catapres] 0.1 mg PO BID 04/02/19 04/07/19 1 Day Ago History ~04/01/19 Active Meds: Active Medications Quetiapine Fumarate (Seroquel) 200 mg PO BID DARRELL Last Admin: 04/07/19 09:30 Dose: 200 mg Documented by: Past psychiatric history - Past Medical History Past Medical History: No medical history Past Surgical History: No surgical history - past Psychiatric treatment and history psychiatric treatment history: Hx of Autism per the record. Unable to obtain a fam psy hx. - Social History Social history: lives with family Mental Status Exam - Vital signs Last Vital Signs Temp 98.3 F 11/20/19 01:28 Pulse 76 04/07/19 01:28 Resp 20 04/07/19 01:28 BP 119/90 04/07/19 01:28 Pulse Ox 96 04/07/19 01:28 - Exam Narrative exam: MSE: Appearance: calm, cooperative Behavior: regular eye contact Speech: regular rate and tone Mood: "okay" Affect: congruent to mood Thought Process: circumstantial Thought Content: denies SI/HI's and AVH's Motor Activity: sitting up in bed Cognition: A/O x3 Insight: variable Judgment: fair Results Result Diagrams: 04/06/19 23:30 04/06/19 23:30 Abnormal lab results 04/06/19 04/06/19 Range/Units 23:30 23:30 MCH 26 L (28-32) pg Lymph % (Auto) 36.9 H (13.4-35.0) % Potassium 3.4 L (3.6-5.0) mmol/L All other labs normal. Assessment and Plan Assessment and plan: Impression: Unspecified Intellectual Disability. Today the patient was calm and cooperative during the assessment. UDS is negative. Recommendation/Plan: Rescind 1013. The patient do not need any prescriptions. Dispo: The patient can follow up with [facility] for outpatient psy services. Staffed with Dr Nelly Mobley.
--- NOTE | 2019-04-07 14:46 | Event Note ---
Date: 04/07/19 Patient is very familiar to myself. She is pleasant, calm and cooperative. There is no endorsement of homicidality or suicidality. Psychiatric team and case management team have seen and evaluated her. She does not appear to have an emergent medical condition at this time. She has outpatient follow-up. Vital Signs 04/06/19 04/07/19 04/07/19 22:39 01:28 08:00 Temperature 97.4 F L 98.3 F 98.5 F Pulse Rate 77 76 78 Respiratory 16 20 18 Rate Blood Pressure 117/77 Blood Pressure 119/90 118/77 [Right] O2 Sat by Pulse 99 96 98 Oximetry Labs 04/06/19 04/06/19 04/06/19 23:30 23:30 23:30 WBC 7.6 RBC 4.39 Hgb 11.3 Hct 35.2 MCV 80 MCH 26 L MCHC 32 RDW 14.8 Plt Count 239 Lymph % (Auto) 36.9 H [place] % (Auto) 7.2 Eos % (Auto) 2.3 Baso % (Auto) 0.7 Lymph # 2.8 [place] # 0.5 Eos # 0.2 Baso # 0.1 Seg Neutrophils % 52.9 Seg Neutrophils # 4.0 Sodium 139 Potassium 3.4 L Chloride 102.6 Carbon Dioxide 23 Anion Gap 17 BUN 10 Creatinine 0.9 Estimated GFR > 60 BUN/Creatinine Ratio 11 Glucose 83 Calcium 8.7 HCG, Qual Urine Color Urine Turbidity Urine pH Ur Specific [place] Urine Protein Urine Glucose (UA) Urine Ketones Urine Blood Urine Nitrite Urine Bilirubin Urine Urobilinogen Ur Leukocyte Esterase Urine WBC (Auto) Urine RBC (Auto) U Epithel Cells (Auto) Urine Mucus Urine Opiates Screen Urine Methadone Screen Ur Barbiturates Screen Ur Phencyclidine Scrn Ur Amphetamines Screen U Benzodiazepines Scrn Urine Cocaine Screen U Marijuana (THC) Screen Drugs of Abuse Note Plasma/Serum Alcohol < 0.01 04/06/19 04/07/19 04/07/19 23:30 Unknown Unknown WBC RBC Hgb Hct MCV MCH MCHC RDW Plt Count Lymph % (Auto) [place] % (Auto) Eos % (Auto) Baso % (Auto) Lymph # [place] # Eos # Baso # Seg Neutrophils % Seg Neutrophils # Sodium Potassium Chloride Carbon Dioxide Anion Gap BUN Creatinine Estimated GFR BUN/Creatinine Ratio Glucose Calcium HCG, Qual Negative Urine Color Yellow Urine Turbidity Clear Urine pH 5.0 Ur Specific [place] 1.012 Urine Protein <15 mg/dl Urine Glucose (UA) Neg Urine Ketones Neg Urine Blood Neg Urine Nitrite Neg Urine Bilirubin Neg Urine Urobilinogen < 2.0 Ur Leukocyte Esterase Neg Urine WBC (Auto) 1.0 Urine RBC (Auto) 2.0 U Epithel Cells (Auto) 1.0 Urine Mucus Few Urine Opiates Screen Presumptive negative Urine Methadone Screen Presumptive negative Ur Barbiturates Screen Presumptive negative Ur Phencyclidine Scrn Presumptive negative Ur Amphetamines Screen Presumptive negative U Benzodiazepines Scrn Presumptive negative Urine Cocaine Screen Presumptive negative U Marijuana (THC) Screen Presumptive negative Drugs of Abuse Note Disclamer Plasma/Serum Alcohol
[2019-04-07 15:23] VITALS: BP 104/61
== END 2019-04-07 21:00 | disposition home or self-care (01) ==
LOC: EEVIPCON 21:46 → ED 21:46
DX: F84.0 Autistic disorder (principal); F31.9 Bipolar disorder, unspecified; F20.9 Schizophrenia, unspecified; F79 Unspecified intellectual disabilities; F39 Unspecified mood [affective] disorder; E66.9 Obesity, unspecified
CPT/HCPCS: 36415; 80048; 80307; 80320; 81001; 84703; 85025; G0480

== ENCOUNTER 2019-04-23 17:21 | Emergency (ER) | payer MEDICAID ==
--- NOTE | 2019-04-23 18:36 | Event Note ---
ED Screening Note ED Screening Note: started this morning states she has substernal chest discomfort feels like a burning sensation "hot burn" no HI/SI has not taken anything for it increased burping increased gas This initial assessment/diagnostic orders/clinical plan/treatment(s) is/are subject to change based on patients health status, clinical progression and re- assessment by fellow clinical providers in the ED. Further treatment and workup at subsequent clinical providers discretion. Patient/guardian urged not to elope from the ED as their condition may be serious if not clinically assessed and managed.
[2019-04-23 19:14] LABS: Bilirubin,Urine NEG (Negative); Blood,Urine NEG (Negative); Color,Urine Straw (Yellow); Protein,Urine <15 mg/dL mg/dL (Negative); Urobilinogen,Urine < 2.0 mg/dL (<2.0)
[2019-04-23 19:23] LABS: Amphetamine Screen,Urine PRESUMPTIVE NEGATIVE; Benzodiazepines Screen,Urine PRESUMPTIVE NEGATIVE; Cocaine Screen,Urine PRESUMPTIVE NEGATIVE; Methadone Screen,Urine PRESUMPTIVE NEGATIVE; Opiate Screen,Urine PRESUMPTIVE NEGATIVE
[2019-04-23] MEDS ORDERED: IBUPROFEN 800 MG TAB PO ONE (19:24)
--- NOTE | 2019-04-23 19:39 | Emergency Department Report ---
ED General Adult HPI - General Chief complaint: Chest Pain Stated complaint: CHEST PAIN Time Seen by Provider: 04/23/19 18:34 Source: patient, EMS Mode of arrival: Ambulatory Limitations: No Limitations - History of Present Illness Initial comments: Ms. Nayak is a 29 y/o aaf with hx of depression, and schizophrenia, episodes of self harm. pt presents for cp with self harm episode to day. state voices told her to cut her fingers with knife. pt has small abrasions to left 3rd and 4th digits palmar side, there is no bleeding , rom intact, no nerve, muscle, or tendon damage. CP is described as pressure, 3/10 it is relieved by "burping" this is also a chronic problem. pt states she just avoid greasy foods. because they cause burning sensation "hot burn". pt denies HI/SI, at this time, tetanus is up to date, will request psych eval for SI / self harm risk. Onset/Timin -: days(s) Location: chest Radiation: non-radiation Severity scale (0 -10): 3 Quality: burning Consistency: intermittent Improves with: none Worsens with: eating Associated Symptoms: chest pain. denies: cough, fever/chills, nausea/vomiting, shortness of breath, weakness - Related Data Home Medications Medication Instructions Recorded Confirmed Last Taken levETIRAcetam [Keppra TAB] 500 mg PO BID 03/23/19 04/23/19 1 Day Ago ~04/01/19 QUEtiapine [SEROquel] 200 mg PO BID 04/02/19 04/23/19 1 Day Ago ~04/01/19 cloNIDine [Catapres] 0.1 mg PO BID 04/02/19 04/23/19 1 Day Ago ~04/01/19 Allergies Allergy/AdvReac Type Severity Reaction Status Date / Time No Known Allergies Allergy Verified 04/23/19 17:22 ED Review of Systems ROS: Stated complaint: CHEST PAIN Other details as noted in HPI Constitutional: denies: chills, fever Eyes: denies: eye pain, eye discharge, vision change ENT: denies: ear pain, throat pain Respiratory: denies: cough, shortness of breath, wheezing Cardiovascular: chest pain (epigastric). denies: palpitations Endocrine: no symptoms reported Gastrointestinal: denies: abdominal pain, nausea, vomiting, diarrhea Genitourinary: denies: urgency, dysuria, discharge Musculoskeletal: denies: back pain, joint swelling, arthralgia Skin: denies: rash, lesions Neurological: denies: headache, weakness, paresthesias Psychiatric: anxiety, depression, suicidal thoughts Hematological/Lymphatic: denies: easy bleeding, easy bruising ED Past Medical Hx - Past Medical History Hx Psychiatric Treatment: Yes (schizophrenia, Mood disorder, Bipolar, Violent) Additional medical history: autism, obesity - Social History Smoking Status: Never Smoker Substance Use Type: None - Medications Home Medications: Home Medications Medication Instructions Recorded Confirmed Last Taken Type levETIRAcetam [Keppra TAB] 500 mg PO BID 03/23/19 04/23/19 1 Day Ago History ~04/01/19 QUEtiapine [SEROquel] 200 mg PO BID 04/02/19 04/23/19 1 Day Ago History ~04/01/19 cloNIDine [Catapres] 0.1 mg PO BID 04/02/19 04/23/19 1 Day Ago History ~04/01/19 ED Physical Exam - General Limitations: No Limitations General appearance: alert, in no apparent distress - Head Head exam: Present: atraumatic, normocephalic - Eye Eye exam: Present: normal appearance, PERRL, EOMI Pupils: Present: normal accommodation - ENT ENT exam: Present: mucous membranes moist - Neck Neck exam: Present: normal inspection, full ROM. Absent: tenderness - Respiratory Respiratory exam: Present: normal lung sounds bilaterally. Absent: respiratory distress, wheezes, rales, rhonchi, stridor, chest wall tenderness - Cardiovascular Cardiovascular Exam: Present: regular rate, normal heart sounds - GI/Abdominal GI/Abdominal exam: Present: soft, normal bowel sounds. Absent: distended, tenderness, guarding, rebound, rigid - Rectal Rectal exam: Present: deferred - Extremities Exam Extremities exam: Present: normal inspection, full ROM, normal capillary refill. Absent: tenderness, pedal edema - Back Exam Back exam: Present: normal inspection - Neurological Exam Neurological exam: Present: alert, oriented X3, CN II-XII intact, normal gait - Psychiatric Psychiatric exam: Present: flat affect, suicidal ideation - Skin Skin exam: Present: warm, dry, intact, normal color. Absent: rash ED Course Vital Signs 04/23/19 04/23/1919 18:35 20:25 01:32 Temperature 98.7 F 98.6 F 98 F Pulse Rate 101 H 93 H 79 Respiratory 18 18 16 Rate Blood Pressure 133/80 Blood Pressure 103/61 103/61 [Right] O2 Sat by Pulse 100 97 100 Oximetry ED Medical Decision Making - Lab Data Result diagrams: 04/23/19 19:47 04/23/19 19:47 - EKG Data EKG shows normal: sinus rhythm, axis, intervals, QRS complexes, ST-T waves Rate: normal - EKG Data When compared to previous EKG there are: no significant change Interpretation: no acute changes, normal EKG (ekg interp by ed attending, NSR, No ST Elevated [place] , ), other (probable left atrial enlargment) - Radiology Data Radiology results: report reviewed, image reviewed - Medical Decision Making pt will small abrasions to left 3 and 4th digits palmar side , very superficial no bleeding no nerve muscle or tendon damage, rom intact, wounds do not require sutures, pt is currentl y a/o x 3 , denies Si or hi, awaiting Psych consult for SI, self harm, pt was evaluated 1 month ago for same, states brief inpatient psych stay and discharge. [id number]: pt resting quitely denies cp at this time , labs noted noted normal, ua: normal, plan: pt is medically cleared for pysch evaluation and treatment. Critical care attestation.: If time is entered above; I have spent that time in minutes in the direct care of this critically ill patient, excluding procedure time. ED Disposition Clinical Impression: Self mutilating behavior Schizophrenia Qualifiers: Schizophrenia type: unspecified Qualified Code(s): F20.9 - Schizophrenia, unspecified Condition: Stable Referrals: PRIMARY CARE, [Primary Care Provider] - 3-5 Days
[2019-04-23 19:51] LABS: Cannabinoid Screen,Urine PRESUMPTIVE POSITIVE
[2019-04-23 20:12] LABS: Basophils % (Auto) 0.5 % (0.0-1.8); Eosinophils # (Auto) 0.3 K/mm3 (0.0-0.4); Eosinophils % (Auto) 4.3 % (0.0-4.3); Hematocrit 34.1 % (30.3-42.9); Hemoglobin 11.2 gm/dl (10.1-14.3); Lymphocytes # (Auto) 2.7 K/mm3 (1.2-5.4); Lymphocytes % (Auto) 43.1 % (13.4-35.0); Mean Corpuscular HGB Conc 33 % (30-34); Mean Corpuscular Volume 79 fl (79-97); Monocytes # (Auto) 0.4 K/mm3 (0.0-0.8); Monocytes % (Auto) 6.3 % (0.0-7.3); Platelet Count 250 K/mm3 (140-440); Red Blood Count 4.32 M/mm3 (3.65-5.03); Red Cell Distribution Width 14.7 % (13.2-15.2)
[2019-04-23 20:30] LABS: Alanine Aminotransferase 14 units/L (7-56); Albumin 3.6 g/dL (3.9-5); BUN/Creatinine Ratio 10; Blood Urea Nitrogen 8 mg/dL (7-17); Calcium 8.7 mg/dL (8.4-10.2); Hemolysis Index 4
[2019-04-24 08:52] VITALS: BP 103/90
== END 2019-04-24 09:31 | disposition home or self-care (01) ==
LOC: ED 17:21
DX: F20.9 Schizophrenia, unspecified (principal); F31.9 Bipolar disorder, unspecified; E66.9 Obesity, unspecified; Z79.899 Other long term (current) drug therapy; X78.9XXA Intentional self-harm by unspecified sharp object, initial encounter
CPT/HCPCS: 36415; 80053; 80307; 80320; 81001; 84703; 85025; 93005; 93010; G0480

== ENCOUNTER 2019-05-06 10:03 | Emergency (ER) | payer MEDICAID ==
[2019-05-06 10:12] VITALS: BP 137/96
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
== END 2019-05-06 18:53 | disposition home or self-care (01) ==
LOC: ED 10:03 → EEVIPCON 10:03 → ED 18:53
DX: T74.21XA Adult sexual abuse, confirmed, initial encounter (principal); F25.0 Schizoaffective disorder, bipolar type; F84.0 Autistic disorder; Z79.899 Other long term (current) drug therapy; Y07.430 Stepfather, perpetrator of maltreatment and neglect

== ENCOUNTER 2019-05-11 19:54 | Emergency (ER) | payer MEDICAID | END 2019-05-12 00:20 | disposition home or self-care (01) | LOC: ED 19:54 | CPT/HCPCS: 36415; 80053; 80320; 84703; 85025; G0480 ==

== ENCOUNTER 2019-06-05 18:07 | Emergency (ER) | payer MEDICAID ==
[2019-06-05 19:01] VITALS: BP 109/86
--- NOTE | 2019-06-05 19:01 | Event Note ---
ED Screening Note Date of service: 06/05/19 Time: 19:00 ED Screening Note: Pt complains of constipation and rectal pain x this morning denies abdominal pain This initial assessment/diagnostic orders/clinical plan/treatment(s) is/are subject to change based on patients health status, clinical progression and re- assessment by fellow clinical providers in the ED. Further treatment and workup at subsequent clinical providers discretion. Patient/guardian urged not to elope from the ED as their condition may be serious if not clinically assessed and managed. Initial orders include:
--- NOTE | 2019-06-05 22:58 | Emergency Department Report ---
HPI - General Chief Complaint: Pain General Time Seen by Provider: 06/05/19 18:59 - HPI HPI: [facility] 25 The patient is a 29-year-old female presenting with a chief complaint of constipation and buttocks pain. The patient says she came to the emergency department because she's been constipated since this morning. The patient states she attempted to have a bowel movement twice and had buttocks pain which time and had to strain. Patient denies passing blood or noticing blood on the tissue. Patient states she does not know the last time she had a normal bowel movement. The patient states she put too much hot sauce on her food which made her buttocks hurt. Patient denies abdominal pain. Patient has a history of schizophrenia and autism and is a very poor historian. ED Past Medical Hx - Past Medical History Previous Medical History?: Yes Hx Psychiatric Treatment: Yes (schizophrenia, Mood disorder, Bipolar, Violent) Additional medical history: autism, obesity - Surgical History Past Surgical History?: No - Family History Family history: no significant - Social History Smoking Status: Never Smoker Substance Use Type: None (denies illicit drug use) - Medications Home Medications: Home Medications Medication Instructions Recorded Confirmed Last Taken Type QUEtiapine [SEROquel] 200 mg PO BID #60 05/06/19 Unknown Rx cloNIDine [Catapres] 0.1 mg PO BID #60 05/06/19 Unknown Rx levETIRAcetam [Keppra TAB] 500 mg PO BID #60 05/06/19 Unknown Rx Docusate Sodium [Colace] 100 mg PO BID PRN #60 capsule 06/06/19 Unknown Rx ED Review of Systems ROS: Stated complaint: CONSTIPATION/BUTT PAIN Other details as noted in HPI Constitutional: no symptoms reported Eyes: denies: eye pain ENT: denies: throat pain Respiratory: no symptoms reported Cardiovascular: denies: chest pain Endocrine: no symptoms reported Gastrointestinal: constipation. denies: abdominal pain, nausea, vomiting, melena, hematochezia Genitourinary: denies: dysuria Musculoskeletal: denies: back pain Neurological: denies: headache Physical Exam - Physical Exam Vital Signs: Vital Signs 06/05/19 18:59 Temperature 98.6 F Pulse Rate 95 H Respiratory 20 Rate Blood Pressure 109/86 [Left] O2 Sat by Pulse 98 Oximetry Physical Exam: GENERAL: The patient is well-developed well-nourished female sitting on stretcher not appearing to be in acute distress. [] HEENT: Normocephalic. Atraumatic. Extraocular motions are intact. Patient has moist mucous membranes. NECK: Supple. Trachea midline CHEST/LUNGS: Clear to auscultation. There is no respiratory distress noted. HEART/CARDIOVASCULAR: Regular. There is no tachycardia. There is no gallop rub or murmur. ABDOMEN: Abdomen is soft, but diffusely tender to palpation. Patient has normal bowel sounds. There is no abdominal distention. SKIN: There is no rash. There is no edema. There is no diaphoresis. NEURO: The patient is awake, alert, and oriented. The patient is cooperative. The patient has normal speech MUSCULOSKELETAL: There is no evidence of acute injury. Rectal: Patient refused ED Course Vital Signs 06/05/19 18:59 Temperature 98.6 F Pulse Rate 95 H Respiratory 20 Rate Blood Pressure 109/86 [Left] O2 Sat by Pulse 98 Oximetry ED Medical Decision Making - Lab Data Result diagrams: 06/05/19 23:44 06/05/19 23:44 Laboratory Tests 06/05/19 06/05/19 06/05/19 23:44 23:44 23:44 WBC 7.5 RBC 4.63 Hgb 11.7 Hct 35.3 MCV 76 L MCH 25 L MCHC 33 RDW 15.5 H Plt Count 271 Lymph % (Auto) 41.0 H [place] % (Auto) 4.9 Eos % (Auto) 4.7 H Baso % (Auto) 0.9 Lymph # 3.1 [place] # 0.4 Eos # 0.4 Baso # 0.1 Seg Neutrophils % 48.5 Seg Neutrophils # 3.6 Sodium 135 L Potassium 3.9 Chloride 104.3 Carbon Dioxide 17 L Anion Gap 18 BUN 10 Creatinine 0.8 Estimated GFR > 60 BUN/Creatinine Ratio 13 Glucose 93 Calcium 9.1 Total Bilirubin 0.20 AST 15 ALT 16 Alkaline Phosphatase 126 Total Protein 7.6 Albumin 3.7 L Albumin/Globulin Ratio 0.9 Lipase 35 HCG, Qual Negative - Radiology Data Radiology results: report reviewed (CT abdomen and pelvis), image reviewed (CT abdomen and pelvis) [facility] [address] [place] [address] Cat Scan Report Signed Patient: BHAKTI ADAM MR#: [id number] : 1990 Acct:[id number] Age/Sex: 29 / F ADM Date: 06/05/19 Loc: ED Attending Dr: Ordering Physician: KRYSTINA CARRANZA MD Date of Service: 06/05/19 Procedure(s): CT abdomen pelvis w con Accession Number(s): [id number] cc: KRYSTINA CARRANZA MD CT ABDOMEN AND PELVIS WITH IV CONTRAST INDICATION: diffuse abdominal pain, constipation. COMPARISON: None available. TECHNIQUE: All CT scans at this facility use dose modulation, automated exposure control, iterative reconstruction or weight based dosing, when appropriate, to reduce radiation dose to as low as reasonably achievable. FINDINGS: Lung Bases: No significant abnormality. Skeletal System: No acute abnormality. ABDOMEN: Liver: No significant abnormality. Gallbladder: No significant abnormality. Bile Ducts: No significant abnormality. Pancreas: No significant abnormality. Spleen: No significant abnormality. Adrenals: No significant abnormality. Right Kidney: No significant abnormality. Left Kidney: No significant abnormality. Upper GI tract: No significant abnormality. Lymph Nodes: No significant adenopathy. Aorta: No significant abnormality. Additional Findings: No significant abnormality. PELVIS: Colon: No acute abnormality. Urinary Bladder and Distal Ureters: No significant abnormality. Appendix: No significant abnormality. Lymph Nodes: No significant adenopathy. Additional Findings: None. IMPRESSION: 1. No acute process in the abdomen or pelvis. 2. Incidental findings, as above. Signer Name: Spencer Briceno MD Signed: 06/06/2019 1:15 AM Workstation Name: [id number] T ranscribed By: Dictated By: Spencer Briceno MD Electronically Authenticated By: Spencer Briceno MD Signed Date/Time: 06/06/19114 DD/ 2 TD/TT: - Differential Diagnosis constipation, hemorrhoids, small bowel obstruction Critical care attestation.: If time is entered above; I have spent that time in minutes in the direct care of this critically ill patient, excluding procedure time. ED Disposition Clinical Impression: Constipation Disposition: DC-01 TO HOME OR SELFCARE Is pt being admited?: No Does the pt Need Aspirin: No Condition: Stable Instructions: Constipation (ED) Additional Instructions: Return to the emergency department should you develop worsening symptoms, inability to tolerate food or liquids, high fever or any other concerns Prescriptions: Docusate Sodium [Colace] 100 mg PO BID PRN #60 capsule PRN Reason: Constipation Referrals: [facility] [Outside] - 3-5 Days OSWALDO WELLINGTON MD [Staff Physician] - 3-5 Days ([place]. [place] a [place] stro[place]ologist. Please follow-up with him for further evaluation) Time of Disposition: 01:32
[2019-06-06 00:06] LABS: Basophils # (Auto) 0.1 K/mm3 (0.0-0.1); Basophils % (Auto) 0.9 % (0.0-1.8); Eosinophils # (Auto) 0.4 K/mm3 (0.0-0.4); Eosinophils % (Auto) 4.7 % (0.0-4.3); Hematocrit 35.3 % (30.3-42.9); Hemoglobin 11.7 gm/dl (10.1-14.3); Lymphocytes # (Auto) 3.1 K/mm3 (1.2-5.4); Mean Corpuscular HGB Conc 33 % (30-34); Mean Corpuscular Volume 76 fl (79-97); Monocytes # (Auto) 0.4 K/mm3 (0.0-0.8); Monocytes % (Auto) 4.9 % (0.0-7.3); Platelet Count 271 K/mm3 (140-440); Red Blood Count 4.63 M/mm3 (3.65-5.03); Red Cell Distribution Width 15.5 % (13.2-15.2)
[2019-06-06 00:30] LABS: Alanine Aminotransferase 16 units/L (7-56); Albumin 3.7 g/dL (3.9-5); BUN/Creatinine Ratio 13; Blood Urea Nitrogen 10 mg/dL (7-17); Calcium 9.1 mg/dL (8.4-10.2); Hemolysis Index 9
--- NOTE | 2019-06-06 01:20 | Cat Scan Report ---
CT ABDOMEN AND PELVIS WITH IV CONTRAST INDICATION: diffuse abdominal pain, constipation. COMPARISON: None available. TECHNIQUE: All CT scans at this facility use dose modulation, automated exposure control, iterative reconstructi on or weight based dosing, when appropriate, to reduce radiation dose to as low as reasonably achieva ble. FINDINGS: Lung Bases: No significant abnormality. Skeletal System: No acute abnormality. ABDOMEN: Liver: No significant abnormality. Gallbladder: No significant abnormality. Bile Ducts: No significant abnormality. Pancreas: No significant abnormality. Spleen: No significant abnormality. Adrenals: No significant abnormality. Right Kidney: No significant abnormality. Left Kidney: No significant abnormality. Upper GI tract: No significant abnormality. Lymph Nodes: No significant adenopathy. Aorta: No significant abnormality. Additional Findings: No significant abnormality. PELVIS: Colon: No acute abnormality. Urinary Bladder and Distal Ureters: No significant abnormality. Appendix: No significant abnormality. Lymph Nodes: No significant adenopathy. Additional Findings: None. IMPRESSION: 1. No acute process in the abdomen or pelvis. 2. Incidental findings, as above. Signer Name: Spencer Briceno MD Signed: 06/06/2019 1:15 AM Workstation Name: [id number]
== END 2019-06-06 01:41 | disposition home or self-care (01) ==
LOC: ED 18:07
DX: K59.00 Constipation, unspecified (principal); F31.9 Bipolar disorder, unspecified; F20.9 Schizophrenia, unspecified
CPT/HCPCS: 36415; 74177; 80053; 83690; 84703; 85025; 99284; Q9967

== ENCOUNTER 2019-06-10 18:49 | Emergency (ER) | payer MEDICAID ==
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
[2019-06-10 18:58] VITALS: BP 107/79
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
== END 2019-06-11 01:10 ==
LOC: ED 18:49
DX: T74.21XA Adult sexual abuse, confirmed, initial encounter (principal); F20.89 Other schizophrenia; F32.89 Other specified depressive episodes; F84.0 Autistic disorder; Z79.899 Other long term (current) drug therapy; X58.XXXA Exposure to other specified factors, initial encounter

== ENCOUNTER 2020-05-04 18:59 | Emergency (ER) | payer MEDICAID ==
--- NOTE | 2020-05-04 19:48 | Emergency Department Report ---
Blank Doc - Documentation Documentation: 30-year-old female that presents with SZ. This initial assessment/diagnostic orders/clinical plan/treatment(s) is/are subject to change based on patient's health status, clinical progression and re- assessment by fellow clinical providers in the ED. Further treatment and workup at subsequent clinical providers discretion. Patient/guardians urged not to elope from the ED as their condition may be serious if not clinically assessed and managed. Initial orders include: 1- Patient sent to [facility] for further evaluation and treatment 2- labs 3- UA
[2020-05-04 19:49] VITALS: BP 130/85
[2020-05-04 20:21] LABS: Basophils % (Auto) 0.5 % (0.0-1.8); Eosinophils # (Auto) 0.2 K/mm3 (0.0-0.4); Eosinophils % (Auto) 3.2 % (0.0-4.3); Hematocrit 38.7 % (30.3-42.9); Hemoglobin 12.6 gm/dl (10.1-14.3); Lymphocytes # (Auto) 2.2 K/mm3 (1.2-5.4); Mean Corpuscular HGB Conc 33 % (30-34); Mean Corpuscular Volume 79 fl (79-97); Monocytes # (Auto) 0.3 K/mm3 (0.0-0.8); Platelet Count 275 K/mm3 (140-440); Red Blood Count 4.91 M/mm3 (3.65-5.03)
[2020-05-04 20:42] LABS: Alanine Aminotransferase 21 units/L (7-56); Blood Urea Nitrogen 9 mg/dL (7-17); Calcium 9.2 mg/dL (8.4-10.2); Hemolysis Index 8
[2020-05-04 20:50] LABS: BUN/Creatinine Ratio 13
[2020-05-04] MEDS ORDERED: levETIRAcetam 1000 MG/NS 0.75% 1,000 MG/100 ML BAG IV ONE (20:54)
--- NOTE | 2020-05-04 20:57 | Emergency Department Report ---
ED Seizure HPI - General Chief Complaint: Seizure Stated Complaint: SEIZURE Time Seen by Provider: 05/04/20 20:44 Source: patient Mode of arrival: Stretcher Limitations: Altered Mental Status - History of Present Illness Initial Comments: Patient is a 30-year-old female that presents emergency room for a seizure. Mother is at bedside with patient. Mother states that the patient was shopping today and had a seizure and that is why they came to the hospital. Mother states while they were in the waiting room the patient had another seizure. States that it is a tonic-clonic seizure with postictal confusion. Mother states that the patient sees a neurologist and the neurologist has been adjusting her medications recently. Mother states that she was recently taken off of her Keppra. At this time the patient is postictal and is nonverbal. Mother denies recent travel. Mother denies recent international travel. Mother denies exposure to the novel coronavirus. Mother denies sick contacts. Mother denies fever and chills. Mother denies cough. Mother denies diarrhea. Mother denies coming in contact with anybody with symptoms of the novel coronavirus. MD Complaint: seizure -: Sudden Description of Episode: loss of consciousness, tonic-clonic movement -: second(s) Witnessed:: Yes Trauma: No Seizure History: known seizure disorder, compliant with medication Possible Precipitating Event: medication (Change in medications) - Related Data Previous Rx's Medication Instructions Recorded Last Taken Type QUEtiapine [SEROquel] 200 mg PO BID #60 05/06/19 Unknown Rx cloNIDine [Catapres] 0.1 mg PO BID #60 05/06/19 Unknown Rx Docusate Sodium [Colace] 100 mg PO BID PRN #60 capsule 06/06/19 Unknown Rx levETIRAcetam [Keppra TAB] 500 mg PO BID #60 05/04/20 Unknown Rx Allergies Allergy/AdvReac Type Severity Reaction Status Date / Time No Known Allergies Allergy Verified 04/23/19 17:22 ED Review of Systems ROS: Stated complaint: SEIZURE Other details as noted in HPI Comment: Unobtainable due to pts medical conditions ED Past Medical Hx - Past Medical History Previous Medical History?: Yes Hx Seizures: Yes Hx Psychiatric Treatment: Yes (schizophrenia, Mood disorder, Bipolar, Violent) Additional medical history: autism, obesity - Surgical History Past Surgical History?: No - Family History Family history: no significant - Social History Smoking Status: Never Smoker Substance Use Type: None - Medications Home Medications: Home Medications Medication Instructions Recorded Confirmed Last Taken Type QUEtiapine [SEROquel] 200 mg PO BID #60 05/06/19 Unknown Rx cloNIDine [Catapres] 0.1 mg PO BID #60 05/06/19 Unknown Rx Docusate Sodium [Colace] 100 mg PO BID PRN #60 capsule 06/06/19 Unknown Rx levETIRAcetam [Keppra TAB] 500 mg PO BID #60 05/04/20 Unknown Rx ED Physical Exam - General Limitations: Altered Mental Status, Physical Limitation, Other General appearance: alert, in no apparent distress - Head Head exam: Present: atraumatic, normocephalic - Eye Eye exam: Present: normal appearance, PERRL, EOMI - ENT ENT exam: Present: mucous membranes dry - Neck Neck exam: Present: normal inspection - Respiratory Respiratory exam: Present: normal lung sounds bilaterally. Absent: respiratory distress, wheezes - Cardiovascular Cardiovascular Exam: Present: regular rate, normal rhythm. Absent: systolic murmur, diastolic murmur, rubs, gallop - GI/Abdominal GI/Abdominal exam: Present: soft, normal bowel sounds - Extremities Exam Extremities exam: Present: normal inspection - Back Exam Back exam: Present: normal inspection - Neurological Exam Neurological exam: Present: alert, altered - Skin Skin exam: Present: warm, dry, intact, normal color. Absent: rash ED Course Vital Signs 05/04/20 19:47 Temperature 98.3 F Pulse Rate 104 H Respiratory 18 Rate Blood Pressure 130/85 O2 Sat by Pulse 97 Oximetry - Reevaluation(s) Reevaluation #1: Mother states the patient is back to baseline. Patient is answering some questions. Mother states the patient has a history of autism. I discussed all results and clinical findings with patient and mother. I discussed plan of care with patient and mother. Patient and mother agrees with plan of care. Patient is stable for discharge. Patient will be discharged home with mother. Patient and mother given discharge instructions. Mother voiced understanding of discharge instructions. 05/04/20 22:02 ED Medical Decision Making - Lab Data Result diagrams: 05/04/20 20:01 05/04/20 20:01 - Radiology Data Radiology results: report reviewed CT scan of the head report reviewed. CT scan is negative for acute findings. - Medical Decision Making Patient is a 30-year-old female with a known seizure history presents emergency room for seizure activity. Patient's been going through some medication changes with her neurologist and was recently her Keppra was stopped. Patient had a seizure today while shopping and then another seizure while in the ER. Patient given Keppra and the patient had no further seizure activity. Patient will be given a refill of her Keppra and patient and mother instructed to take the Keppra twice a day until they see the neurologist. Patient is stable for discharge. Patient had labs done which were unremarkable. Patient had a head CT which was negative for acute findings. - Differential Diagnosis Medication changes, seizure, stress, Critical care attestation.: If time is entered above; I have spent that time in minutes in the direct care of this critically ill patient, excluding procedure time. ED Disposition Clinical Impression: Seizure Disposition: DC-01 TO HOME OR SELFCARE Is pt being admited?: No Does the pt Need Aspirin: No Condition: Stable Instructions: Seizure, Adult Additional Instructions: Patient to follow-up with primary care in 2 to 3 days. Patient to follow-up with neurology in 2 to 3 days. Patient to restart Keppra prescription until the patient sees a neurologist. Patient to rest. Patient to increase water. Patient to avoid driving. Patient to avoid strenuous exercise or heavy lifting until cleared by neurology. patient to take Tylenol or ibuprofen as needed for pain. Patient to take meds as directed. Patient to return to the ER if condition worsens, changes or new symptoms arise. Prescriptions: levETIRAcetam [Keppra TAB] 500 mg PO BID #60 Referrals: PRIMARY CARE [Primary Care Provider] - 2-3 Days Time of Disposition: 22:00
[2020-05-04 21:15] LABS: Bilirubin,Urine NEG (Negative); Blood,Urine NEG (Negative); Color,Urine Colorless (Yellow); Mucus,Urine FEW /HPF; Protein,Urine <15 mg/dL mg/dL (Negative); RBC,Urine < 1.0 /HPF (0.0-6.0); Urobilinogen,Urine < 2.0 mg/dL (<2.0); WBC,Urine < 1.0 /HPF (0.0-6.0)
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
== END 2020-05-04 22:21 | disposition home or self-care (01) ==
LOC: ED 18:59
DX: G40.909 Epilepsy, unspecified, not intractable, without status epilepticus (principal); F25.0 Schizoaffective disorder, bipolar type; Z79.899 Other long term (current) drug therapy
CPT/HCPCS: 36415; 70450; 80053; 81001; 84703; 85025; 96374; 99284; J1953

== ENCOUNTER 2020-05-16 09:45 | Emergency (ER) | payer MEDICAID ==
[2020-05-16 10:38] VITALS: BP 134/77
[2020-05-16 16:02] LABS: Basophils % (Auto) 0.7 % (0.0-1.8); Eosinophils # (Auto) 0.1 K/mm3 (0.0-0.4); Eosinophils % (Auto) 2.1 % (0.0-4.3); Hematocrit 38.7 % (30.3-42.9); Hemoglobin 12.7 gm/dl (10.1-14.3); Lymphocytes # (Auto) 1.7 K/mm3 (1.2-5.4); Lymphocytes % (Auto) 29.1 % (13.4-35.0); Mean Corpuscular HGB Conc 33 % (30-34); Mean Corpuscular Volume 79 fl (79-97); Monocytes # (Auto) 0.5 K/mm3 (0.0-0.8); Monocytes % (Auto) 8.1 % (0.0-7.3); Platelet Count 266 K/mm3 (140-440); Red Blood Count 4.89 M/mm3 (3.65-5.03); Red Cell Distribution Width 15.4 % (13.2-15.2)
[2020-05-16 16:17] LABS: Alanine Aminotransferase 18 units/L (7-56); Albumin 4.2 g/dL (3.9-5); Calcium 9.3 mg/dL (8.4-10.2); Hemolysis Index 1
[2020-05-16 16:24] LABS: BUN/Creatinine Ratio 14; Blood Urea Nitrogen 11 mg/dL (7-17)
== END 2020-05-16 15:40 | disposition left against medical advice (07) ==
LOC: ED 09:45
DX: G40.909 Epilepsy, unspecified, not intractable, without status epilepticus (principal); Z53.21 Procedure and treatment not carried out due to patient leaving prior to being seen by health care provider
CPT/HCPCS: 36415; 80053; 83735; 84703; 85025

== ENCOUNTER 2021-06-26 20:33 | Emergency (ER) | payer MEDICAID ==
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
[2021-06-26 22:56] LABS: Basophils # (Auto) 0.1 K/mm3 (0.0-0.1); Basophils % (Auto) 1.3 % (0.0-1.8); Eosinophils # (Auto) 0.1 K/mm3 (0.0-0.4); Eosinophils % (Auto) 0.6 % (0.0-4.3); Hematocrit 34.6 % (30.3-42.9); Hemoglobin 11.2 gm/dl (10.1-14.3); Lymphocytes # (Auto) 1.3 K/mm3 (1.2-5.4); Lymphocytes % (Auto) 14.8 % (13.4-35.0); Mean Corpuscular HGB Conc 32 % (30-34); Mean Corpuscular Volume 79 fl (79-97); Monocytes # (Auto) 0.6 K/mm3 (0.0-0.8); Monocytes % (Auto) 7.2 % (0.0-7.3); Platelet Count 278 K/mm3 (140-440); Red Blood Count 4.41 M/mm3 (3.65-5.03); Red Cell Distribution Width 16.4 % (13.2-15.2)
[2021-06-26 23:12] LABS: Alanine Aminotransferase 9 units/L (7-56); Albumin 3.8 g/dL (3.9-5); BUN/Creatinine Ratio 11; Blood Urea Nitrogen 10 mg/dL (7-17); Calcium 8.5 mg/dL (8.4-10.2); Hemolysis Index 0
[2021-06-27 09:31] VITALS: BP 114/69
[2021-06-27 10:11] LABS: Bilirubin,Urine NEG (Negative); Blood,Urine NEG (Negative); Color,Urine Yellow (Yellow); Mucus,Urine FEW /HPF; RBC,Urine < 1.0 /HPF (0.0-6.0); Urobilinogen,Urine < 2.0 mg/dL (<2.0)
[2021-06-27 10:20] LABS: Amphetamine Screen,Urine Negative; Benzodiazepines Screen,Urine Negative; Cannabinoid Screen,Urine Negative; Cocaine Screen,Urine Negative; Methadone Screen,Urine Negative; Opiate Screen,Urine Negative
--- NOTE | 2021-06-27 12:00 | Consultation ---
History of Present Illness - Reason for Consult Consult date: 06/27/21 Reason for consult: mental health evaluation - History of Present Psychiatric Illness ED Note: Patient is a 31-year-old female present with a chief complaint of dangerous behavior. Per EMS the patient was found walking down the middle of the street in a dangerous fashion and was subsequently transported to the ED. Patient denies suicidal homicidal ideation. Patient denies auditory visual hallucinations. When asked what made her come to the emergency department the patient states her parents called 911 because she went outside in the dark. The patient is a 32 year old female with history of Autism, Bipolar, and Schizophrnia. In my interview with the patient, she is calm, and oriented to self. She reports that she had an outburst last night and went outside in the dark. No aggressive behaviors reported. The patient denies any current suicidal/homicidal ideation and denies hallucinations. Collateral from patient's mother: states that the patient was recently discharged from a psychiatric inpatient facility and that she sees a psychiatrist- out patient. States the patient is on Clozapine, Depakote and [place]. PAST PSYCHIATRIC HISTORY Diagnoses: Autism, Bipolar, Schizophrnia Suicide attempts or Self-harm behavior: Denies Prior psychiatric hospitalizations: Yes Substance Abuse history: Denies Previous psychiatric medications tried:Clozapine, Depakote, Natural [place] Outpatient treatment: Yes PAST MEDICAL HISTORY: Family Psychiatric History: Not available SOCIAL HISTORY Marital Status: Single Living Arrangements: Lives with parents Employment Status:unemployed Access to guns/weapons: None reported Education:Unknown History of Abuse: None reported Legal History: None reported REVIEW OF SYSTEMS Constitutional: Negative for weight loss ENT: Negative for stridor Respiratory: Negative for cough or hemoptysis All other systems reviewed and are negative MENTAL STATUS EXAMINATION General Appearance and Behavior: Age appropriate, good hygiene, wearing appropriate clothes, good eye contact, cooperative polite with questioning. Cooperation: Participating Psychomotor Behavior: abnormal Mood: "ok" Affect and affective range: congruent with mood Thought Process: Goal directed Thought Content: Reality oriented Speech: Normal volume, Regular rate and rhythm Intellectual Functioning: Average Suicidal Ideation: Denies Homicidal Ideation: Denies Hallucinations: Denies Impulse Control: impaired Insight and Judgment: poor insight and judgment Memory: Attention: Divided Orientation: Alert, oriented Assessment and Plan (1) Hx of Autism (2) Current Visit: Yes Status: Acute RECOMMENDATIONS DC 1013 continue home meds. Risks, benefits and alternatives of medications discussed with the patient, questions answered and consent obtained from patient. PSYCHOTHERAPY: Supportive psychotherapy provided MEDICAL: Per primary team DELIRIUM PRECAUTIONS: Please re-orient patient frequently, keep lights on during the day, and minimize benzodiazepines and opiates as these medications could worsen patient's confusion. CORPORATE SAFETY COORDINATOR: Per medical team DISPOSITION: Do not recommend acute inpatient psychiatric hospitalization at this time. Visitor Services Technician will provide patient with psychiatry out patient resources FOLLOW-UP: Will sign off. Thank you for the consult. Please contact with any questions and/or concerns. Medications and Allergies Allergies Allergy/AdvReac Type Severity Reaction Status Date / Time No Known Allergies Allergy Verified 04/23/19 17:22 Home Medications Medication Instructions Recorded Confirmed Last Taken Type QUEtiapine [SEROquel] 200 mg PO BID #60 05/06/19 Unknown Rx cloNIDine [Catapres] 0.1 mg PO BID #60 05/06/19 Unknown Rx Docusate Sodium [Colace] 100 mg PO BID PRN #60 capsule 06/06/19 Unknown Rx levETIRAcetam [Keppra TAB] 500 mg PO BID #60 05/04/20 Unknown Rx Mental Status Exam - Vital signs Last Vital Signs Temp 98.3 F 06/27/21 09:30 Pulse 71 06/27/21 09:30 Resp 18 06/27/21 09:30 BP 114/69 06/27/21 09:30 Pulse Ox 98 06/27/21 10:35 Results Result Diagrams: 06/26/21 22:22 06/26/21 22:22 Abnormal lab results 06/26/21 06/26/21 06/26/21 Range/Units 22:22 22:22 22:22 MCH 25 L (28-32) pg RDW 16.4 H (13.2-15.2) % Seg Neutrophils % 76.1 H (40.0-70.0) % Glucose 109 H (65-100) mg/dL Albumin 3.8 L (3.9-5) g/dL U Epithel Cells (Auto) (0-13.0) /HPF Salicylates < 0.3 L (2.8-20.0) mg/dL Acetaminophen (10.0-30.0) ug/mL 06/26/21 06/27/21 Range/Units 22:22 Unknown MCH (28-32) pg RDW (13.2-15.2) % Seg Neutrophils % (40.0-70.0) % Glucose (65-100) mg/dL Albumin (3.9-5) g/dL U Epithel Cells (Auto) 18.0 H (0-13.0) /HPF Salicylates (2.8-20.0) mg/dL Acetaminophen 5.0 L (10.0-30.0) ug/mL All other labs normal.
--- NOTE | 2021-06-27 15:41 | Event Note ---
This is a 31-year-old female with history of autism. Patient cleared for discharge by psychiatric team.
== END 2021-06-27 16:25 | disposition home or self-care (01) ==
LOC: ED 20:33
DX: F20.9 Schizophrenia, unspecified (principal); F31.9 Bipolar disorder, unspecified; Z20.822 Contact with and (suspected) exposure to COVID-19; Z79.899 Other long term (current) drug therapy
CPT/HCPCS: 36415; 80053; 80307; 81001; 84703; 85025; 99284; U0003; 80320; G0480